=== PATIENT | male | born 1945 | race Caucasian/White ===

== ENCOUNTER 2024-07-15 17:45 | Inpatient (IN) ==
[2024-07-15] MEDS: NOREPINEPHRINE/D5W 4 MG/250 ML PLCT IV SCH (20:48)
--- OUTSIDE RECORDS SUMMARY | 2024-07-15 20:53 | External Medical Summary | Continuity Of Care Document ---
Author Name Unknown Address [address] [address] [facility] () Care Team Providers Care Component Lab Tech Name Role Phone DO Acuña Amy Primary Care Provider [phone] Allergies Allergy Reaction Start Date End Date Status NO KNOWN ALLERGIES Active Medications Medication Instructions Dosage Start Date End Date Status Order Date Drug Code Frequency Route of Admin Diagnosis Code Substitutions Allowed Tubersol 5 tub. unit/0.1 mL intradermal injection solution [Tuberculin PPD] 0.1 mL Intradermal 1 time For PPD Step 1 GIVE on Day 1 and read results Day 3 0.1 mL 07/06 Active 2024 84331 95836 0 1 time Intrad ermal False Tubersol 5 tub. unit/0.1 mL intradermal injection solution [Tuberculin PPD] 0.1mL Intradermal 1 time For PPD 2nd Step Give 2nd Step PPD Day 1 and Read results Day 3 (schedule 7 days after 1st READ) 0.1mL 07/15 Active 2024 45323 99644 0 1 time Intrad ermal False Doxycycline hyclate 100 mg tablet [generic] 100 mg By Mouth Twice daily For Pneumonitis 100 mg 07/08 Active 2024 66867 01845 1 Twice daily By Mouth False Tamiflu 75 mg capsule 75 mg By Mouth Twice daily For Influenza 75 mg 07/07 Active 2024 67075 58171 7 Twice daily By Mouth False Aspirin 81 mg tablet,dominick yed release [generic] 81 mg By Mouth O nce daily Do not crush, chew, or break For CAD 81 mg 2024 Active 2024 63817 11299 9 Once daily By Mouth False Losartan 50 mg tablet [generic] 50 mg By Mouth Once daily For HTN 50 mg 2024 Active 2024 02835 16553 9 Once daily By Mouth False Carbidopa 25 mg-levodopa 100 mg tablet [generic] 1 tab By Mouth 3 times a day For Parkinson's disease 1 tab 2024 Active 2024 97888 75321 1 3 times a day By Mouth False Celebrex 100 mg capsule 100 mg By Mouth Twice daily For Back pain 100 mg 2024 Active 2024 55170 48443 1 Twice daily By Mouth False Cyclobenzap rine 5 mg tablet [generic] 5 mg By Mouth 3 times a day As Needed For Back pain 5 mg 2024 Active 2024 57518 81159 1 3 times a day By Mouth False Donepezil 10 mg tablet [generic] 10 mg By Mouth Once daily For Dementia 10 mg 2024 Active 2024 48666 37950 3 Once daily By Mouth False Duloxetine 30 mg capsule,del ayed release [generic] 30 mg By Mouth Once daily For Depression 30 mg 2024 Active 2024 92928 29351 3 Once daily By Mouth False Jardiance 25 mg tablet 25 mg By Mouth Once daily For Diabetes 25 mg 2024 Active 2024 19932 22287 7 Once daily By Mouth False Entacapone 200 mg tablet [generic] 200 mg By Mouth 3 times a day For Parkinson's Disease 200 mg 2024 Active 2024 84685 16647 1 3 times a day By Mouth False Finasteride 5 mg tablet [generic] 5 mg By Mouth Once daily For BPH 5 mg 2024 Active 2024 23637 46542 1 Once daily By Mouth False Gemfibrozil 600 mg tablet [generic] 600 mg By Mouth Twice daily For Hyperlipidemi a 600 mg 2024 Active 2024 46750 01318 1 Twice daily By Mouth False Insulin aspart (U-100) 100 unit/mL (3 mL) subcutaneou s pen [generic] Subcutaneous 4 times a day <70 HOLD - Initiate Hypoglycemi Protocol 70-149 give 1.0 150-199 give 2.0 Units 200-249 give 4.0 Units 250-299 give 7.0 Units 300-349 give 10.0 Units 350-399 give 12.0 Units 400-499 give 14.0 Units >5 00 Call Provider for one-time order For Diabetes 2024 Active 2024 40729 75481 5 4 times a day Subcut aneous False Lactulose 10 gram/15 mL oral solution [generic] 15 ml By Mouth Twice daily For Constipation 15 ml 2024 Active 2024 70765 35615 8 Twice daily By Mouth False Memantine 10 mg tablet [generic] 10 mg By Mouth Twice daily For Dementia 10 mg 2024 Active 2024 41307 41966 0 Twice daily By Mouth False Metformin 1,000 mg tablet [generic] 1000 mg By Mouth Twice daily For Diabetes 1000 mg 2024 Active 2024 85642 20023 0 Twice daily By Mouth False Myrbetriq 25 mg tablet,exte nded release 25 mg By Mouth Once daily For OAB 25 mg 2024 Active 2024 78071 87764 7 Once daily By Mouth False Sertraline 25 mg tablet [generic] 25 mg By Mouth Once daily For Depression 25 mg 2024 Active 2024 60071 05522 5 Once daily By Mouth False [place]-3 fatty acids 1,000 mg capsule [generic] 1 capsule By Mouth Twice daily For Supplement 1 capsule 2024 Active 2024 85522 56304 7 Twice daily By Mouth False Pantoprazol e 40 mg tablet,dominick yed release [generic] 40 mg By Mouth Once daily For GERD 40 mg 2024 Active 2024 76867 11484 0 Once daily By Mouth False Pramipexole 0.25 mg tablet [generic] 0.25 mg By Mouth Twice daily For Parkinson's disease 0.25 mg 2024 Active 2024 72152 84163 0 Twice daily By Mouth False Pregabalin 75 mg capsule [generic] 75 mg By Mouth Twice daily For Neuropathy 75 mg 2024 Active 2024 70615 35758 9 Twice daily By Mouth False Rasagiline 1 mg tablet [generic] 1 mg By Mouth Once daily For Parkinson's disease 1 mg 2024 Active 2024 84193 73215 0 Once daily By Mouth False Sitagliptin 100 mg tablet [generic] 100 mg By Mouth Once daily For Diabetes 100 mg 2024 Active 2024 60620 67694 3 Once daily By Mouth False Tylenol 325 mg tablet 2 tabs By Mouth Every 4 hours as needed For Pain DO NOT EXCEED 3000 MG APAP/24 Hours 2 tabs 2024 Active 2024 66426 42556 0 Every 4 hours as needed By Mouth False Tylenol 325 mg tablet 2 tabs By Mouth Every 4 hours as needed For Fever >100 DO NOT EXCEED 3000 MG APAP/24 Hours 2 tabs 2024 Active 2024 94773 81610 0 Every 4 hours as needed By Mouth False Dulcolax (bisacodyl) 10 mg rectal suppository One Suppository per rectum PRN if Milk of Magnisia ineffective. Give on day 5 of no BM 1 sup 2024 Active 2024 29437 85086 1 Daily as needed Rectal False Fleet Enema 19 gram-7 gram/118 mL Administer per rectum PRN one time if dulcolax suppository not effective. Give on day 6 of no BM 1 2024 Active 2024 23793 52557 6 Daily as needed Rectal False Dextrose 50 % in water (D50W) intravenous solution [generic] Dextrose 50% nilda 20-50 ml (slow push) Intravenous if Glucagon not effective after 15 minutes. CALL 911 for ED Evaluation. 50% nilda 2024 Active 2024 39006 16471 9 Intrav enous False Glucagon (HCl) Emergency Kit 1 mg solution for injection Administer Glucagon 1 mg Intramuscular if 15 minutes after GLucose Gel is administered Glucose remains less than 70 1 mg 2024 Active 2024 32036 50615 2 Intram uscula r False Glucose Gel 40 % oral gel [Dextrose] PRN If resident is unable to swallow (with or without symptoms) and Glucose results less than 70 give GLucose 40% Gel 1 tube orally - Recheck Glucose 15 minutes after administratio n. 1 tube 2024 Active 2024 77473 78841 8 By Mouth False Milk of Magnesia 400 mg/5 mL oral suspension [Magnesium hydroxide] PRN 30ml By Mouth Daily as needed for constipation one time daily if no BM, on day 4 of no BM (PRN refer to instructions) For Constipation 30 mL 2024 Active 2024 22505 33402 6 Daily as needed By Mouth False Januvia 100 mg tablet TAKE ONE (1) TABLET BY MOUTH ONCE DAILY 2024 Active 2024 53884 77243 1 VITAL SIGNS Date Time Diastolic blood pressure Systolic blood pressure Body height Body weight Temperature SpO2 Blood Sugar Pulse Respirations 91035 429 66526 4 59.00 mm[Hg] - Sitting 106.00 mm[Hg] - Sitting 98.40 Tympanic 68.00/ min 18.00/min 78217 429 68807 0 155.60 NI 59927 429 31727 0 66 NI 19673 429 20911 4 59.00 mm[Hg] - Sitting 106.00 mm[Hg] - Sitting 98.40 Tympanic 94.00 % 68.00/ min 18.00/min 63118 429 33030 8 59.00 mm[Hg] - Sitting 106.00 mm[Hg] - Sitting 98.40 Tympanic 68.00/ min 18.00/min 33311 429 35462 9 267.00 mg/dL 80388 429 95159 4 267.00 mg/dL 46254 430 41380 8 196.00 mg/dL 76227 430 95935 0 196.00 mg/dL
--- OUTSIDE RECORDS SUMMARY | 2024-07-15 20:53 | External Medical Summary | Continuity Of Care Document ---
Author Name Unknown Address [address] [address] Organization [facility] () Care Team Providers Care Fitness Professional Name Role Phone DO Acuña Amy Primary Care Provider [phone] Allergies Allergy Reaction Start Date End Date [...] Day 3 0.1 mL 07/06 Active 2024 12425 94897 0 1 time Intrad ermal False Tubersol 5 tub. unit/0.1 mL intradermal injection solution [Tuberculin PPD] 0.1mL Intradermal 1 time For PPD 2nd Step Give 2nd Step PPD Day 1 and Read results Day 3 (schedule 7 days after 1st READ) 0.1mL 07/15 Active 2024 47969 07944 0 1 time Intrad ermal False Doxycycline hyclate 100 mg tablet [generic] 100 mg By Mouth Twice daily For Pneumonitis 100 mg 07/08 Active 2024 65233 01070 1 Twice daily By Mouth False Tamiflu 75 mg capsule 75 mg By Mouth Twice daily For Influenza 75 mg 07/07 Active 2024 35223 40714 7 Twice daily By Mouth False Aspirin 81 mg tablet,dominick yed release [generic] 81 mg By Mouth O nce daily Do not crush, chew, or break For CAD 81 mg 2024 Active 2024 22070 16788 9 Once daily By Mouth False Losartan 50 mg tablet [generic] 50 mg By Mouth Once daily For HTN 50 mg 2024 Active 2024 79046 63214 9 Once daily By Mouth False Carbidopa 25 mg-levodopa 100 mg tablet [generic] 1 tab By Mouth 3 times a day For Parkinson's disease 1 tab 2024 Active 2024 36805 45736 1 3 times a day By Mouth False Celebrex 100 mg capsule 100 mg By Mouth Twice daily For Back pain 100 mg 2024 Active 2024 40131 48022 1 Twice daily By Mouth False Cyclobenzap rine 5 mg tablet [generic] 5 mg By Mouth 3 times a day As Needed For Back pain 5 mg 2024 Active 2024 36378 44763 1 3 times a day By Mouth False Donepezil 10 mg tablet [generic] 10 mg By Mouth Once daily For Dementia 10 mg 2024 Active 2024 83468 14995 3 Once daily By Mouth False Duloxetine 30 mg capsule,del ayed release [generic] 30 mg By Mouth Once daily For Depression 30 mg 2024 Active 2024 01030 06108 3 Once daily By Mouth False Jardiance 25 mg tablet 25 mg By Mouth Once daily For Diabetes 25 mg 2024 Active 2024 70512 36816 7 Once daily By Mouth False Entacapone 200 mg tablet [generic] 200 mg By Mouth 3 times a day For Parkinson's Disease 200 mg 2024 Active 2024 48859 44059 1 3 times a day By Mouth False Finasteride 5 mg tablet [generic] 5 mg By Mouth Once daily For BPH 5 mg 2024 Active 2024 16629 75225 1 Once daily By Mouth False Gemfibrozil 600 mg tablet [generic] 600 mg By Mouth Twice daily For Hyperlipidemi a 600 mg 2024 Active 2024 99727 42984 1 Twice daily By Mouth False Insulin [...] one-time order For Diabetes 2024 Active 2024 74219 33556 5 4 times a day Subcut aneous False Lactulose 10 gram/15 mL oral solution [generic] 15 ml By Mouth Twice daily For Constipation 15 ml 2024 Active 2024 70285 19233 8 Twice daily By Mouth False Memantine 10 mg tablet [generic] 10 mg By Mouth Twice daily For Dementia 10 mg 2024 Active 2024 17626 81899 0 Twice daily By Mouth False Metformin 1,000 mg tablet [generic] 1000 mg By Mouth Twice daily For Diabetes 1000 mg 2024 Active 2024 74759 40041 0 Twice daily By Mouth False Myrbetriq 25 mg tablet,exte nded release 25 mg By Mouth Once daily For OAB 25 mg 2024 Active 2024 31268 73614 7 Once daily By Mouth False Sertraline 25 mg tablet [generic] 25 mg By Mouth Once daily For Depression 25 mg 2024 Active 2024 17474 26482 5 Once daily By Mouth False [place]-3 fatty acids 1,000 mg capsule [generic] 1 capsule By Mouth Twice daily For Supplement 1 capsule 2024 Active 2024 60700 76172 7 Twice daily By Mouth False Pantoprazol e 40 mg tablet,dominick yed release [generic] 40 mg By Mouth Once daily For GERD 40 mg 2024 Active 2024 73503 38353 0 Once daily By Mouth False Pramipexole 0.25 mg tablet [generic] 0.25 mg By Mouth Twice daily For Parkinson's disease 0.25 mg 2024 Active 2024 72000 61965 0 Twice daily By Mouth False Pregabalin 75 mg capsule [generic] 75 mg By Mouth Twice daily For Neuropathy 75 mg 2024 Active 2024 96300 52601 9 Twice daily By Mouth False Rasagiline 1 mg tablet [generic] 1 mg By Mouth Once daily For Parkinson's disease 1 mg 2024 Active 2024 99968 51456 0 Once daily By Mouth False Sitagliptin 100 mg tablet [generic] 100 mg By Mouth Once daily For Diabetes 100 mg 2024 Active 2024 83642 23504 3 Once daily By Mouth False Tylenol 325 mg tablet 2 tabs By Mouth Every 4 hours as needed For Pain DO NOT EXCEED 3000 MG APAP/24 Hours 2 tabs 2024 Active 2024 30854 04813 0 Every 4 hours as needed By Mouth False Tylenol 325 mg tablet 2 tabs By Mouth Every 4 hours as needed For Fever >100 DO NOT EXCEED 3000 MG APAP/24 Hours 2 tabs 2024 Active 2024 27121 42133 0 Every 4 hours as needed By Mouth False Dulcolax (bisacodyl) 10 mg rectal suppository One Suppository per rectum PRN if Milk of Magnisia ineffective. Give on day 5 of no BM 1 sup 2024 Active 2024 52903 73388 1 Daily as needed Rectal False Fleet Enema 19 gram-7 gram/118 mL Administer per rectum PRN one time if dulcolax suppository not effective. Give on day 6 of no BM 1 2024 Active 2024 35734 36648 6 Daily as needed Rectal False Dextrose 50 % in water (D50W) intravenous solution [generic] Dextrose 50% nilda 20-50 ml (slow push) Intravenous if Glucagon not effective after 15 minutes. CALL 911 for ED Evaluation. 50% nilda 2024 Active 2024 86105 01229 9 Intrav enous False Glucagon (HCl) Emergency Kit 1 mg solution for injection Administer Glucagon 1 mg Intramuscular if 15 minutes after GLucose Gel is administered Glucose remains less than 70 1 mg 2024 Active 2024 05077 45753 2 Intram uscula r False Glucose Gel 40 % oral gel [Dextrose] PRN If resident is unable to swallow (with or without symptoms) and Glucose results less than 70 give GLucose 40% Gel 1 tube orally - Recheck Glucose 15 minutes after administratio n. 1 tube 2024 Active 2024 27134 23725 8 By Mouth False Milk of Magnesia 400 mg/5 mL oral suspension [Magnesium hydroxide] PRN 30ml By Mouth Daily as needed for constipation one time daily if no BM, on day 4 of no BM (PRN refer to instructions) For Constipation 30 mL 2024 Active 2024 74442 56862 6 Daily as needed By Mouth False VITAL SIGNS Date Time Diastolic blood pressure Systolic blood pressure Body height Body weight Temperature SpO2 Blood Sugar Pulse Respirations 62953 429 01244 0 155.60 [place] 61293 429 23680 0 66 NI 60685 429 97278 4 59.00 mm[Hg] - Sitting 106.00 mm[Hg] - Sitting 98.40 Tympanic 94.00 % 68.00/ min 18.00/min 84054 429 40001 8 59.00 mm[Hg] - Sitting 106.00 mm[Hg] - Sitting 98.40 Tympanic 68.00/ min 18.00/min 80387 429 43809 9 267.00 mg/dL
--- OUTSIDE RECORDS SUMMARY | 2024-07-15 20:53 | External Medical Summary | Continuity Of Care Document ---
Author Name Unknown Address [address] [address] Organization [facility] () Care Team Providers Care Supervisor [employer] Name Role Phone DO Acuña Amy Primary Care Provider [phone] Allergies Allergy Reaction Start Date End Date [...] Day 3 0.1 mL 07/06 Active 2024 25504 84325 0 1 time Intrad ermal False Tubersol 5 tub. unit/0.1 mL intradermal injection solution [Tuberculin PPD] 0.1mL Intradermal 1 time For PPD 2nd Step Give 2nd Step PPD Day 1 and Read results Day 3 (schedule 7 days after 1st READ) 0.1mL 07/15 Active 2024 04538 03037 0 1 time Intrad ermal False Doxycycline hyclate 100 mg tablet [generic] 100 mg By Mouth Twice daily For Pneumonitis 100 mg 07/08 Active 2024 00766 10971 1 Twice daily By Mouth False Tamiflu 75 mg capsule 75 mg By Mouth Twice daily For Influenza 75 mg 07/07 Active 2024 82240 86648 7 Twice daily By Mouth False Aspirin 81 mg tablet,dominick yed release [generic] 81 mg By Mouth O nce daily Do not crush, chew, or break For CAD 81 mg 2024 Active 2024 09488 35503 9 Once daily By Mouth False Losartan 50 mg tablet [generic] 50 mg By Mouth Once daily For HTN 50 mg 2024 Active 2024 20896 22129 9 Once daily By Mouth False Carbidopa 25 mg-levodopa 100 mg tablet [generic] 1 tab By Mouth 3 times a day For Parkinson's disease 1 tab 2024 Active 2024 88279 42438 1 3 times a day By Mouth False Celebrex 100 mg capsule 100 mg By Mouth Twice daily For Back pain 100 mg 2024 Active 2024 34290 18568 1 Twice daily By Mouth False Cyclobenzap rine 5 mg tablet [generic] 5 mg By Mouth 3 times a day As Needed For Back pain 5 mg 2024 Active 2024 64460 53938 1 3 times a day By Mouth False Donepezil 10 mg tablet [generic] 10 mg By Mouth Once daily For Dementia 10 mg 2024 Active 2024 03121 22306 3 Once daily By Mouth False Duloxetine 30 mg capsule,del ayed release [generic] 30 mg By Mouth Once daily For Depression 30 mg 2024 Active 2024 38882 77660 3 Once daily By Mouth False Jardiance 25 mg tablet 25 mg By Mouth Once daily For Diabetes 25 mg 2024 Active 2024 44669 68608 7 Once daily By Mouth False Entacapone 200 mg tablet [generic] 200 mg By Mouth 3 times a day For Parkinson's Disease 200 mg 2024 Active 2024 67733 90282 1 3 times a day By Mouth False Finasteride 5 mg tablet [generic] 5 mg By Mouth Once daily For BPH 5 mg 2024 Active 2024 53763 81189 1 Once daily By Mouth False Gemfibrozil 600 mg tablet [generic] 600 mg By Mouth Twice daily For Hyperlipidemi a 600 mg 2024 Active 2024 48846 17051 1 Twice daily By Mouth False Insulin [...] one-time order For Diabetes 2024 Active 2024 70327 79365 5 4 times a day Subcut aneous False Lactulose 10 gram/15 mL oral solution [generic] 15 ml By Mouth Twice daily For Constipation 15 ml 2024 Active 2024 02242 29632 8 Twice daily By Mouth False Memantine 10 mg tablet [generic] 10 mg By Mouth Twice daily For Dementia 10 mg 2024 Active 2024 75528 62812 0 Twice daily By Mouth False Metformin 1,000 mg tablet [generic] 1000 mg By Mouth Twice daily For Diabetes 1000 mg 2024 Active 2024 29174 42131 0 Twice daily By Mouth False Myrbetriq 25 mg tablet,exte nded release 25 mg By Mouth Once daily For OAB 25 mg 2024 Active 2024 86479 89878 7 Once daily By Mouth False Sertraline 25 mg tablet [generic] 25 mg By Mouth Once daily For Depression 25 mg 2024 Active 2024 50010 48933 5 Once daily By Mouth False [place]-3 fatty acids 1,000 mg capsule [generic] 1 capsule By Mouth Twice daily For Supplement 1 capsule 2024 Active 2024 66612 27491 7 Twice daily By Mouth False Pantoprazol e 40 mg tablet,dominick yed release [generic] 40 mg By Mouth Once daily For GERD 40 mg 2024 Active 2024 30734 13138 0 Once daily By Mouth False Pramipexole 0.25 mg tablet [generic] 0.25 mg By Mouth Twice daily For Parkinson's disease 0.25 mg 2024 Active 2024 09512 11568 0 Twice daily By Mouth False Pregabalin 75 mg capsule [generic] 75 mg By Mouth Twice daily For Neuropathy 75 mg 2024 Active 2024 34427 58710 9 Twice daily By Mouth False Rasagiline 1 mg tablet [generic] 1 mg By Mouth Once daily For Parkinson's disease 1 mg 2024 Active 2024 15555 17230 0 Once daily By Mouth False Sitagliptin 100 mg tablet [generic] 100 mg By Mouth Once daily For Diabetes 100 mg 2024 Active 2024 78951 07261 3 Once daily By Mouth False Tylenol 325 mg tablet 2 tabs By Mouth Every 4 hours as needed For Pain DO NOT EXCEED 3000 MG APAP/24 Hours 2 tabs 2024 Active 2024 68054 14641 0 Every 4 hours as needed By Mouth False Tylenol 325 mg tablet 2 tabs By Mouth Every 4 hours as needed For Fever >100 DO NOT EXCEED 3000 MG APAP/24 Hours 2 tabs 2024 Active 2024 81567 77754 0 Every 4 hours as needed By Mouth False Dulcolax (bisacodyl) 10 mg rectal suppository One Suppository per rectum PRN if Milk of Magnisia ineffective. Give on day 5 of no BM 1 sup 2024 Active 2024 45917 72010 1 Daily as needed Rectal False Fleet Enema 19 gram-7 gram/118 mL Administer per rectum PRN one time if dulcolax suppository not effective. Give on day 6 of no BM 1 2024 Active 2024 17493 69797 6 Daily as needed Rectal False Dextrose 50 % in water (D50W) intravenous solution [generic] Dextrose 50% nilda 20-50 ml (slow push) Intravenous if Glucagon not effective after 15 minutes. CALL 911 for ED Evaluation. 50% nilda 2024 Active 2024 89726 11962 9 Intrav enous False Glucagon (HCl) Emergency Kit 1 mg solution for injection Administer Glucagon 1 mg Intramuscular if 15 minutes after GLucose Gel is administered Glucose remains less than 70 1 mg 2024 Active 2024 51479 03235 2 Intram uscula r False Glucose Gel 40 % oral gel [Dextrose] PRN If resident is unable to swallow (with or without symptoms) and Glucose results less than 70 give GLucose 40% Gel 1 tube orally - Recheck Glucose 15 minutes after administratio n. 1 tube 2024 Active 2024 23019 89716 8 By Mouth False Milk of Magnesia 400 mg/5 mL oral suspension [Magnesium hydroxide] PRN 30ml By Mouth Daily as needed for constipation one time daily if no BM, on day 4 of no BM (PRN refer to instructions) For Constipation 30 mL 2024 Active 2024 25126 14834 6 Daily as needed By Mouth False Januvia 100 mg tablet TAKE ONE (1) TABLET BY MOUTH ONCE DAILY 2024 Active 2024 21573 60831 1 VITAL SIGNS Date Time Diastolic blood pressure Systolic blood pressure Body height Body weight Temperature SpO2 Blood Sugar Pulse Respirations 45067 429 25506 4 59.00 mm[Hg] - Sitting 106.00 mm[Hg] - Sitting 98.40 Tympanic 68.00/ min 18.00/min 48580 429 14730 0 155.60 NI 05457 429 95780 0 66 NI 55429 429 65658 4 59.00 mm[Hg] - Sitting 106.00 mm[Hg] - Sitting 98.40 Tympanic 94.00 % 68.00/ min 18.00/min 79608 429 33884 8 59.00 mm[Hg] - Sitting 106.00 mm[Hg] - Sitting 98.40 Tympanic 68.00/ min 18.00/min 24420 429 03833 9 267.00 mg/dL 50117 429 01013 4 267.00 mg/dL 01404 430 09111 8 196.00 mg/dL 16587 430 54077 0 196.00 mg/dL
--- OUTSIDE RECORDS SUMMARY | 2024-07-15 20:53 | External Medical Summary | Continuity Of Care Document ---
Author Name Unknown Address [address] [address] Organization [facility] () Care Team Providers Care Alarm Signal Operator Name Role Phone DO Acuña Amy Primary Care Provider [phone] Allergies Allergy Reaction Start Date End Date [...] Day 3 0.1 mL 07/06 Active 2024 07666 76778 0 1 time Intrad ermal False Tubersol 5 tub. unit/0.1 mL intradermal injection solution [Tuberculin PPD] 0.1mL Intradermal 1 time For PPD 2nd Step Give 2nd Step PPD Day 1 and Read results Day 3 (schedule 7 days after 1st READ) 0.1mL 07/15 Active 2024 31491 61628 0 1 time Intrad ermal False Doxycycline hyclate 100 mg tablet [generic] 100 mg By Mouth Twice daily For Pneumonitis 100 mg 07/08 Active 2024 57673 74835 1 Twice daily By Mouth False Tamiflu 75 mg capsule 75 mg By Mouth Twice daily For Influenza 75 mg 07/07 Active 2024 11445 51494 7 Twice daily By Mouth False Aspirin 81 mg tablet,dominick yed release [generic] 81 mg By Mouth O nce daily Do not crush, chew, or break For CAD 81 mg 2024 Active 2024 54677 03196 9 Once daily By Mouth False Losartan 50 mg tablet [generic] 50 mg By Mouth Once daily For HTN 50 mg 2024 Active 2024 77522 55312 9 Once daily By Mouth False Carbidopa 25 mg-levodopa 100 mg tablet [generic] 1 tab By Mouth 3 times a day For Parkinson's disease 1 tab 2024 Active 2024 20023 33721 1 3 times a day By Mouth False Celebrex 100 mg capsule 100 mg By Mouth Twice daily For Back pain 100 mg 2024 Active 2024 97137 16828 1 Twice daily By Mouth False Cyclobenzap rine 5 mg tablet [generic] 5 mg By Mouth 3 times a day As Needed For Back pain 5 mg 2024 Active 2024 17656 47789 1 3 times a day By Mouth False Donepezil 10 mg tablet [generic] 10 mg By Mouth Once daily For Dementia 10 mg 2024 Active 2024 88603 98339 3 Once daily By Mouth False Duloxetine 30 mg capsule,del ayed release [generic] 30 mg By Mouth Once daily For Depression 30 mg 2024 Active 2024 13041 77319 3 Once daily By Mouth False Jardiance 25 mg tablet 25 mg By Mouth Once daily For Diabetes 25 mg 2024 Active 2024 83101 15002 7 Once daily By Mouth False Entacapone 200 mg tablet [generic] 200 mg By Mouth 3 times a day For Parkinson's Disease 200 mg 2024 Active 2024 77494 03116 1 3 times a day By Mouth False Finasteride 5 mg tablet [generic] 5 mg By Mouth Once daily For BPH 5 mg 2024 Active 2024 48118 71975 1 Once daily By Mouth False Gemfibrozil 600 mg tablet [generic] 600 mg By Mouth Twice daily For Hyperlipidemi a 600 mg 2024 Active 2024 39608 44410 1 Twice daily By Mouth False Insulin [...] one-time order For Diabetes 2024 Active 2024 40950 73462 5 4 times a day Subcut aneous False Lactulose 10 gram/15 mL oral solution [generic] 15 ml By Mouth Twice daily For Constipation 15 ml 2024 Active 2024 89866 74394 8 Twice daily By Mouth False Memantine 10 mg tablet [generic] 10 mg By Mouth Twice daily For Dementia 10 mg 2024 Active 2024 62376 52336 0 Twice daily By Mouth False Metformin 1,000 mg tablet [generic] 1000 mg By Mouth Twice daily For Diabetes 1000 mg 2024 Active 2024 96810 78625 0 Twice daily By Mouth False Myrbetriq 25 mg tablet,exte nded release 25 mg By Mouth Once daily For OAB 25 mg 2024 Active 2024 88312 75794 7 Once daily By Mouth False Sertraline 25 mg tablet [generic] 25 mg By Mouth Once daily For Depression 25 mg 2024 Active 2024 51895 59901 5 Once daily By Mouth False [place]-3 fatty acids 1,000 mg capsule [generic] 1 capsule By Mouth Twice daily For Supplement 1 capsule 2024 Active 2024 69050 96843 7 Twice daily By Mouth False Pantoprazol e 40 mg tablet,dominick yed release [generic] 40 mg By Mouth Once daily For GERD 40 mg 2024 Active 2024 94254 32556 0 Once daily By Mouth False Pramipexole 0.25 mg tablet [generic] 0.25 mg By Mouth Twice daily For Parkinson's disease 0.25 mg 2024 Active 2024 82076 95744 0 Twice daily By Mouth False Pregabalin 75 mg capsule [generic] 75 mg By Mouth Twice daily For Neuropathy 75 mg 2024 Active 2024 91007 20683 9 Twice daily By Mouth False Rasagiline 1 mg tablet [generic] 1 mg By Mouth Once daily For Parkinson's disease 1 mg 2024 Active 2024 93137 71936 0 Once daily By Mouth False Sitagliptin 100 mg tablet [generic] 100 mg By Mouth Once daily For Diabetes 100 mg 2024 Active 2024 23000 39252 3 Once daily By Mouth False Tylenol 325 mg tablet 2 tabs By Mouth Every 4 hours as needed For Pain DO NOT EXCEED 3000 MG APAP/24 Hours 2 tabs 2024 Active 2024 76270 11648 0 Every 4 hours as needed By Mouth False Tylenol 325 mg tablet 2 tabs By Mouth Every 4 hours as needed For Fever >100 DO NOT EXCEED 3000 MG APAP/24 Hours 2 tabs 2024 Active 2024 28844 97409 0 Every 4 hours as needed By Mouth False Dulcolax (bisacodyl) 10 mg rectal suppository One Suppository per rectum PRN if Milk of Magnisia ineffective. Give on day 5 of no BM 1 sup 2024 Active 2024 57947 26468 1 Daily as needed Rectal False Fleet Enema 19 gram-7 gram/118 mL Administer per rectum PRN one time if dulcolax suppository not effective. Give on day 6 of no BM 1 2024 Active 2024 34022 35195 6 Daily as needed Rectal False Dextrose 50 % in water (D50W) intravenous solution [generic] Dextrose 50% nilda 20-50 ml (slow push) Intravenous if Glucagon not effective after 15 minutes. CALL 911 for ED Evaluation. 50% nilda 2024 Active 2024 64453 79371 9 Intrav enous False Glucagon (HCl) Emergency Kit 1 mg solution for injection Administer Glucagon 1 mg Intramuscular if 15 minutes after GLucose Gel is administered Glucose remains less than 70 1 mg 2024 Active 2024 14994 64444 2 Intram uscula r False Glucose Gel 40 % oral gel [Dextrose] PRN If resident is unable to swallow (with or without symptoms) and Glucose results less than 70 give GLucose 40% Gel 1 tube orally - Recheck Glucose 15 minutes after administratio n. 1 tube 2024 Active 2024 49291 08112 8 By Mouth False Milk of Magnesia 400 mg/5 mL oral suspension [Magnesium hydroxide] PRN 30ml By Mouth Daily as needed for constipation one time daily if no BM, on day 4 of no BM (PRN refer to instructions) For Constipation 30 mL 2024 Active 2024 94822 48939 6 Daily as needed By Mouth False Januvia 100 mg tablet TAKE ONE (1) TABLET BY MOUTH ONCE DAILY 2024 Active 2024 09063 61567 1 VITAL SIGNS Date Time Diastolic blood pressure Systolic blood pressure Body height Body weight Temperature SpO2 Blood Sugar Pulse Respirations 28522 429 47942 4 59.00 mm[Hg] - Sitting 106.00 mm[Hg] - Sitting 98.40 Tympanic 68.00/ min 18.00/min 37087 429 88653 0 155.60 NI [id number] 429 68162 0 66 NI 57402 429 24175 4 59.00 mm[Hg] - Sitting 106.00 mm[Hg] - Sitting 98.40 Tympanic 94.00 % 68.00/ min 18.00/min 73934 429 69788 8 59.00 mm[Hg] - Sitting 106.00 mm[Hg] - Sitting 98.40 Tympanic 68.00/ min 18.00/min 94797 429 76199 9 267.00 mg/dL 74736 429 33988 4 267.00 mg/dL 56260 430 32602 8 196.00 mg/dL 23409 430 17947 0 196.00 mg/dL 04364 430 25810 6 66.00 mm[Hg] - Lying Down 100.00 mm[Hg] - Lying Down 430 27655 0 69.00 mm[Hg] - Sitting 118.00 mm[Hg] - Sitting 430 53981 2 73.00 mm[Hg] - T-Standing 123.00 mm[Hg] - T-Standin g
--- OUTSIDE RECORDS SUMMARY | 2024-07-15 20:54 | External Medical Summary | Continuity Of Care Document ---
Author Name Unknown Address [address] [address] Organization [facility] () Care Team Providers Care Livestock Handler Name Role Phone DO Acuña Amy Primary Care Provider [phone] Allergies Allergy Reaction Start Date End Date [...] Day 3 0.1 mL 07/06 Active 2024 71200 02436 0 1 time Intrad ermal False Tubersol 5 tub. unit/0.1 mL intradermal injection solution [Tuberculin PPD] 0.1mL Intradermal 1 time For PPD 2nd Step Give 2nd Step PPD Day 1 and Read results Day 3 (schedule 7 days after 1st READ) 0.1mL 07/15 Active 2024 91264 84604 0 1 time Intrad ermal False Doxycycline hyclate 100 mg tablet [generic] 100 mg By Mouth Twice daily For Pneumonitis 100 mg 07/08 Active 2024 63910 96866 1 Twice daily By Mouth False Tamiflu 75 mg capsule 75 mg By Mouth Twice daily For Influenza 75 mg 07/07 Active 2024 41522 67355 7 Twice daily By Mouth False Aspirin 81 mg tablet,dominick yed release [generic] 81 mg By Mouth O nce daily Do not crush, chew, or break For CAD 81 mg 2024 Active 2024 67451 67360 9 Once daily By Mouth False Losartan 50 mg tablet [generic] 50 mg By Mouth Once daily For HTN 50 mg 2024 Active 2024 90513 24581 9 Once daily By Mouth False Carbidopa 25 mg-levodopa 100 mg tablet [generic] 1 tab By Mouth 3 times a day For Parkinson's disease 1 tab 2024 Active 2024 10879 47612 1 3 times a day By Mouth False Celebrex 100 mg capsule 100 mg By Mouth Twice daily For Back pain 100 mg 2024 Active 2024 97677 93203 1 Twice daily By Mouth False Cyclobenzap rine 5 mg tablet [generic] 5 mg By Mouth 3 times a day As Needed For Back pain 5 mg 2024 Active 2024 01656 21517 1 3 times a day By Mouth False Donepezil 10 mg tablet [generic] 10 mg By Mouth Once daily For Dementia 10 mg 2024 Active 2024 78443 71650 3 Once daily By Mouth False Duloxetine 30 mg capsule,del ayed release [generic] 30 mg By Mouth Once daily For Depression 30 mg 2024 Active 2024 75497 63280 3 Once daily By Mouth False Jardiance 25 mg tablet 25 mg By Mouth Once daily For Diabetes 25 mg 2024 Active 2024 72650 00080 7 Once daily By Mouth False Entacapone 200 mg tablet [generic] 200 mg By Mouth 3 times a day For Parkinson's Disease 200 mg 2024 Active 2024 40417 52386 1 3 times a day By Mouth False Finasteride 5 mg tablet [generic] 5 mg By Mouth Once daily For BPH 5 mg 2024 Active 2024 40900 66414 1 Once daily By Mouth False Gemfibrozil 600 mg tablet [generic] 600 mg By Mouth Twice daily For Hyperlipidemi a 600 mg 2024 Active 2024 20588 10497 1 Twice daily By Mouth False Insulin [...] one-time order For Diabetes 2024 Active 2024 72922 83416 5 4 times a day Subcut aneous False Lactulose 10 gram/15 mL oral solution [generic] 15 ml By Mouth Twice daily For Constipation 15 ml 2024 Active 2024 97690 51591 8 Twice daily By Mouth False Memantine 10 mg tablet [generic] 10 mg By Mouth Twice daily For Dementia 10 mg 2024 Active 2024 70402 93593 0 Twice daily By Mouth False Metformin 1,000 mg tablet [generic] 1000 mg By Mouth Twice daily For Diabetes 1000 mg 2024 Active 2024 14721 79531 0 Twice daily By Mouth False Myrbetriq 25 mg tablet,exte nded release 25 mg By Mouth Once daily For OAB 25 mg 2024 Active 2024 03858 02325 7 Once daily By Mouth False Sertraline 25 mg tablet [generic] 25 mg By Mouth Once daily For Depression 25 mg 2024 Active 2024 62958 15260 5 Once daily By Mouth False [place]-3 fatty acids 1,000 mg capsule [generic] 1 capsule By Mouth Twice daily For Supplement 1 capsule 2024 Active 2024 43093 54030 7 Twice daily By Mouth False Pantoprazol e 40 mg tablet,dominick yed release [generic] 40 mg By Mouth Once daily For GERD 40 mg 2024 Active 2024 27182 52819 0 Once daily By Mouth False Pramipexole 0.25 mg tablet [generic] 0.25 mg By Mouth Twice daily For Parkinson's disease 0.25 mg 2024 Active 2024 92445 09573 0 Twice daily By Mouth False Pregabalin 75 mg capsule [generic] 75 mg By Mouth Twice daily For Neuropathy 75 mg 2024 Active 2024 79654 42576 9 Twice daily By Mouth False Rasagiline 1 mg tablet [generic] 1 mg By Mouth Once daily For Parkinson's disease 1 mg 2024 Active 2024 84496 79665 0 Once daily By Mouth False Sitagliptin 100 mg tablet [generic] 100 mg By Mouth Once daily For Diabetes 100 mg 2024 Active 2024 83678 23508 3 Once daily By Mouth False Tylenol 325 mg tablet 2 tabs By Mouth Every 4 hours as needed For Pain DO NOT EXCEED 3000 MG APAP/24 Hours 2 tabs 2024 Active 2024 08096 82903 0 Every 4 hours as needed By Mouth False Tylenol 325 mg tablet 2 tabs By Mouth Every 4 hours as needed For Fever >100 DO NOT EXCEED 3000 MG APAP/24 Hours 2 tabs 2024 Active 2024 65153 18677 0 Every 4 hours as needed By Mouth False Dulcolax (bisacodyl) 10 mg rectal suppository One Suppository per rectum PRN if Milk of Magnisia ineffective. Give on day 5 of no BM 1 sup 2024 Active 2024 19248 23236 1 Daily as needed Rectal False Fleet Enema 19 gram-7 gram/118 mL Administer per rectum PRN one time if dulcolax suppository not effective. Give on day 6 of no BM 1 2024 Active 2024 50361 58653 6 Daily as needed Rectal False Dextrose 50 % in water (D50W) intravenous solution [generic] Dextrose 50% nilda 20-50 ml (slow push) Intravenous if Glucagon not effective after 15 minutes. CALL 911 for ED Evaluation. 50% nilda 2024 Active 2024 48647 33013 9 Intrav enous False Glucagon (HCl) Emergency Kit 1 mg solution for injection Administer Glucagon 1 mg Intramuscular if 15 minutes after GLucose Gel is administered Glucose remains less than 70 1 mg 2024 Active 2024 90321 97448 2 Intram uscula r False Glucose Gel 40 % oral gel [Dextrose] PRN If resident is unable to swallow (with or without symptoms) and Glucose results less than 70 give GLucose 40% Gel 1 tube orally - Recheck Glucose 15 minutes after administratio n. 1 tube 2024 Active 2024 09277 20979 8 By Mouth False Milk of Magnesia 400 mg/5 mL oral suspension [Magnesium hydroxide] PRN 30ml By Mouth Daily as needed for constipation one time daily if no BM, on day 4 of no BM (PRN refer to instructions) For Constipation 30 mL 2024 Active 2024 89996 13782 6 Daily as needed By Mouth False VITAL SIGNS Date Time Diastolic blood pressure Systolic blood pressure Body height Body weight Temperature SpO2 Blood Sugar Pulse Respirations 88456 429 95178 0 155.60 NI 32415 429 51252 0 66 NI 95883 429 37541 4 59.00 mm[Hg] - Sitting 106.00 mm[Hg] - Sitting 98.40 Tympanic 94.00 % 68.00/ min 18.00/min
--- OUTSIDE RECORDS SUMMARY | 2024-07-15 20:54 | External Medical Summary | Continuity Of Care Document ---
Author Name Unknown Address [address] [address] Organization [facility] () Care Team Providers Care Dobie Worker Name Role Phone DO Acuña Amy Primary Care Provider [phone] Allergies Allergy Reaction Start Date End Date [...] Day 3 0.1 mL 07/06 Active 2024 06539 06446 0 1 time Intrad ermal False Tubersol 5 tub. unit/0.1 mL intradermal injection solution [Tuberculin PPD] 0.1mL Intradermal 1 time For PPD 2nd Step Give 2nd Step PPD Day 1 and Read results Day 3 (schedule 7 days after 1st READ) 0.1mL 07/15 Active 2024 02439 53574 0 1 time Intrad ermal False Doxycycline hyclate 100 mg tablet [generic] 100 mg By Mouth Twice daily For Pneumonitis 100 mg 07/08 Active 2024 17071 28760 1 Twice daily By Mouth False Tamiflu 75 mg capsule 75 mg By Mouth Twice daily For Influenza 75 mg 07/07 Active 2024 83688 65722 7 Twice daily By Mouth False Aspirin 81 mg tablet,dominick yed release [generic] 81 mg By Mouth O nce daily Do not crush, chew, or break For CAD 81 mg 2024 Active 2024 09609 45084 9 Once daily By Mouth False Losartan 50 mg tablet [generic] 50 mg By Mouth Once daily For HTN 50 mg 2024 Active 2024 59881 26844 9 Once daily By Mouth False Carbidopa 25 mg-levodopa 100 mg tablet [generic] 1 tab By Mouth 3 times a day For Parkinson's disease 1 tab 2024 Active 2024 72567 92233 1 3 times a day By Mouth False Celebrex 100 mg capsule 100 mg By Mouth Twice daily For Back pain 100 mg 2024 Active 2024 76795 96640 1 Twice daily By Mouth False Cyclobenzap rine 5 mg tablet [generic] 5 mg By Mouth 3 times a day As Needed For Back pain 5 mg 2024 Active 2024 06546 82535 1 3 times a day By Mouth False Donepezil 10 mg tablet [generic] 10 mg By Mouth Once daily For Dementia 10 mg 2024 Active 2024 74147 66315 3 Once daily By Mouth False Duloxetine 30 mg capsule,del ayed release [generic] 30 mg By Mouth Once daily For Depression 30 mg 2024 Active 2024 96762 35551 3 Once daily By Mouth False Jardiance 25 mg tablet 25 mg By Mouth Once daily For Diabetes 25 mg 2024 Active 2024 26636 62197 7 Once daily By Mouth False Entacapone 200 mg tablet [generic] 200 mg By Mouth 3 times a day For Parkinson's Disease 200 mg 2024 Active 2024 28664 32692 1 3 times a day By Mouth False Finasteride 5 mg tablet [generic] 5 mg By Mouth Once daily For BPH 5 mg 2024 Active 2024 12439 22912 1 Once daily By Mouth False Gemfibrozil 600 mg tablet [generic] 600 mg By Mouth Twice daily For Hyperlipidemi a 600 mg 2024 Active 2024 29859 68379 1 Twice daily By Mouth False Insulin [...] one-time order For Diabetes 2024 Active 2024 51070 40249 5 4 times a day Subcut aneous False Lactulose 10 gram/15 mL oral solution [generic] 15 ml By Mouth Twice daily For Constipation 15 ml 2024 Active 2024 86771 96924 8 Twice daily By Mouth False Memantine 10 mg tablet [generic] 10 mg By Mouth Twice daily For Dementia 10 mg 2024 Active 2024 36691 80836 0 Twice daily By Mouth False Metformin 1,000 mg tablet [generic] 1000 mg By Mouth Twice daily For Diabetes 1000 mg 2024 Active 2024 35512 14023 0 Twice daily By Mouth False Myrbetriq 25 mg tablet,exte nded release 25 mg By Mouth Once daily For OAB 25 mg 2024 Active 2024 47821 91718 7 Once daily By Mouth False Sertraline 25 mg tablet [generic] 25 mg By Mouth Once daily For Depression 25 mg 2024 Active 2024 28754 81330 5 Once daily By Mouth False [place]-3 fatty acids 1,000 mg capsule [generic] 1 capsule By Mouth Twice daily For Supplement 1 capsule 2024 Active 2024 94838 82533 7 Twice daily By Mouth False Pantoprazol e 40 mg tablet,dominick yed release [generic] 40 mg By Mouth Once daily For GERD 40 mg 2024 Active 2024 27385 52527 0 Once daily By Mouth False Pramipexole 0.25 mg tablet [generic] 0.25 mg By Mouth Twice daily For Parkinson's disease 0.25 mg 2024 Active 2024 61001 62685 0 Twice daily By Mouth False Pregabalin 75 mg capsule [generic] 75 mg By Mouth Twice daily For Neuropathy 75 mg 2024 Active 2024 00696 25589 9 Twice daily By Mouth False Rasagiline 1 mg tablet [generic] 1 mg By Mouth Once daily For Parkinson's disease 1 mg 2024 Active 2024 88747 81515 0 Once daily By Mouth False Sitagliptin 100 mg tablet [generic] 100 mg By Mouth Once daily For Diabetes 100 mg 2024 Active 2024 11691 63659 3 Once daily By Mouth False Tylenol 325 mg tablet 2 tabs By Mouth Every 4 hours as needed For Pain DO NOT EXCEED 3000 MG APAP/24 Hours 2 tabs 2024 Active 2024 96728 15776 0 Every 4 hours as needed By Mouth False Tylenol 325 mg tablet 2 tabs By Mouth Every 4 hours as needed For Fever >100 DO NOT EXCEED 3000 MG APAP/24 Hours 2 tabs 2024 Active 2024 61402 99958 0 Every 4 hours as needed By Mouth False Dulcolax (bisacodyl) 10 mg rectal suppository One Suppository per rectum PRN if Milk of Magnisia ineffective. Give on day 5 of no BM 1 sup 2024 Active 2024 44444 92522 1 Daily as needed Rectal False Fleet Enema 19 gram-7 gram/118 mL Administer per rectum PRN one time if dulcolax suppository not effective. Give on day 6 of no BM 1 2024 Active 2024 19026 19591 6 Daily as needed Rectal False Dextrose 50 % in water (D50W) intravenous solution [generic] Dextrose 50% nilda 20-50 ml (slow push) Intravenous if Glucagon not effective after 15 minutes. CALL 911 for ED Evaluation. 50% nilda 2024 Active 2024 12431 00218 9 Intrav enous False Glucagon (HCl) Emergency Kit 1 mg solution for injection Administer Glucagon 1 mg Intramuscular if 15 minutes after GLucose Gel is administered Glucose remains less than 70 1 mg 2024 Active 2024 84488 57514 2 Intram uscula r False Glucose Gel 40 % oral gel [Dextrose] PRN If resident is unable to swallow (with or without symptoms) and Glucose results less than 70 give GLucose 40% Gel 1 tube orally - Recheck Glucose 15 minutes after administratio n. 1 tube 2024 Active 2024 43326 77759 8 By Mouth False Milk of Magnesia 400 mg/5 mL oral suspension [Magnesium hydroxide] PRN 30ml By Mouth Daily as needed for constipation one time daily if no BM, on day 4 of no BM (PRN refer to instructions) For Constipation 30 mL 2024 Active 2024 01355 76300 6 Daily as needed By Mouth False Januvia 100 mg tablet TAKE ONE (1) TABLET BY MOUTH ONCE DAILY 2024 Active 2024 85228 24672 1 VITAL SIGNS Date Time Diastolic blood pressure Systolic blood pressure Body height Body weight Temperature SpO2 Blood Sugar Pulse Respirations 53449 429 17339 4 59.00 mm[Hg] - Sitting 106.00 mm[Hg] - Sitting 98.40 Tympanic 68.00/ min 18.00/min 20620 429 98809 0 155.60 NI 64479 429 72954 0 66 NI 47795 429 59643 4 59.00 mm[Hg] - Sitting 106.00 mm[Hg] - Sitting 98.40 Tympanic 94.00 % 68.00/ min 18.00/min 60393 429 83875 8 59.00 mm[Hg] - Sitting 106.00 mm[Hg] - Sitting 98.40 Tympanic 68.00/ min 18.00/min 23553 429 27694 9 267.00 mg/dL 13257 429 27429 4 267.00 mg/dL
--- OUTSIDE RECORDS SUMMARY | 2024-07-15 20:54 | External Medical Summary | Continuity Of Care Document ---
Author Name Unknown Address [address] [address] Organization [facility] [place] [facility] () Care Team Providers Care Mandarin Teacher Name Role Phone DO Acuña Amy Primary Care Provider [phone] Allergies Allergy Reaction Start Date End Date [...] Day 3 0.1 mL 07/06 Active 2024 46000 25976 0 1 time Intrad ermal False Tubersol 5 tub. unit/0.1 mL intradermal injection solution [Tuberculin PPD] 0.1mL Intradermal 1 time For PPD 2nd Step Give 2nd Step PPD Day 1 and Read results Day 3 (schedule 7 days after 1st READ) 0.1mL 07/15 Active 2024 93919 08627 0 1 time Intrad ermal False Doxycycline hyclate 100 mg tablet [generic] 100 mg By Mouth Twice daily For Pneumonitis 100 mg 07/08 Active 2024 75543 28722 1 Twice daily By Mouth False Tamiflu 75 mg capsule 75 mg By Mouth Twice daily For Influenza 75 mg 07/07 Active 2024 17825 51502 7 Twice daily By Mouth False Aspirin 81 mg tablet,dominick yed release [generic] 81 mg By Mouth O nce daily Do not crush, chew, or break For CAD 81 mg 2024 Active 2024 99659 16321 9 Once daily By Mouth False Losartan 50 mg tablet [generic] 50 mg By Mouth Once daily For HTN 50 mg 2024 Active 2024 35940 49520 9 Once daily By Mouth False Carbidopa 25 mg-levodopa 100 mg tablet [generic] 1 tab By Mouth 3 times a day For Parkinson's disease 1 tab 2024 Active 2024 07988 40566 1 3 times a day By Mouth False Celebrex 100 mg capsule 100 mg By Mouth Twice daily For Back pain 100 mg 2024 Active 2024 84236 07464 1 Twice daily By Mouth False Cyclobenzap rine 5 mg tablet [generic] 5 mg By Mouth 3 times a day As Needed For Back pain 5 mg 2024 Active 2024 32045 26865 1 3 times a day By Mouth False Donepezil 10 mg tablet [generic] 10 mg By Mouth Once daily For Dementia 10 mg 2024 Active 2024 62680 80750 3 Once daily By Mouth False Duloxetine 30 mg capsule,del ayed release [generic] 30 mg By Mouth Once daily For Depression 30 mg 2024 Active 2024 25481 11345 3 Once daily By Mouth False Jardiance 25 mg tablet 25 mg By Mouth Once daily For Diabetes 25 mg 2024 Active 2024 81123 02882 7 Once daily By Mouth False Entacapone 200 mg tablet [generic] 200 mg By Mouth 3 times a day For Parkinson's Disease 200 mg 2024 Active 2024 22750 28753 1 3 times a day By Mouth False Finasteride 5 mg tablet [generic] 5 mg By Mouth Once daily For BPH 5 mg 2024 Active 2024 67042 85593 1 Once daily By Mouth False Gemfibrozil 600 mg tablet [generic] 600 mg By Mouth Twice daily For Hyperlipidemi a 600 mg 2024 Active 2024 12879 40913 1 Twice daily By Mouth False Insulin [...] one-time order For Diabetes 2024 Active 2024 42103 37346 5 4 times a day Subcut aneous False Lactulose 10 gram/15 mL oral solution [generic] 15 ml By Mouth Twice daily For Constipation 15 ml 2024 Active 2024 44560 47268 8 Twice daily By Mouth False Memantine 10 mg tablet [generic] 10 mg By Mouth Twice daily For Dementia 10 mg 2024 Active 2024 33395 94535 0 Twice daily By Mouth False Metformin 1,000 mg tablet [generic] 1000 mg By Mouth Twice daily For Diabetes 1000 mg 2024 Active 2024 61284 09370 0 Twice daily By Mouth False Myrbetriq 25 mg tablet,exte nded release 25 mg By Mouth Once daily For OAB 25 mg 2024 Active 2024 36649 65255 7 Once daily By Mouth False Sertraline 25 mg tablet [generic] 25 mg By Mouth Once daily For Depression 25 mg 2024 Active 2024 54268 33487 5 Once daily By Mouth False [place]-3 fatty acids 1,000 mg capsule [generic] 1 capsule By Mouth Twice daily For Supplement 1 capsule 2024 Active 2024 20862 54915 7 Twice daily By Mouth False Pantoprazol e 40 mg tablet,dominick yed release [generic] 40 mg By Mouth Once daily For GERD 40 mg 2024 Active 2024 62535 69064 0 Once daily By Mouth False Pramipexole 0.25 mg tablet [generic] 0.25 mg By Mouth Twice daily For Parkinson's disease 0.25 mg 2024 Active 2024 06262 42196 0 Twice daily By Mouth False Pregabalin 75 mg capsule [generic] 75 mg By Mouth Twice daily For Neuropathy 75 mg 2024 Active 2024 47822 26006 9 Twice daily By Mouth False Rasagiline 1 mg tablet [generic] 1 mg By Mouth Once daily For Parkinson's disease 1 mg 2024 Active 2024 44073 24878 0 Once daily By Mouth False Sitagliptin 100 mg tablet [generic] 100 mg By Mouth Once daily For Diabetes 100 mg 2024 Active 2024 64421 75241 3 Once daily By Mouth False Tylenol 325 mg tablet 2 tabs By Mouth Every 4 hours as needed For Pain DO NOT EXCEED 3000 MG APAP/24 Hours 2 tabs 2024 Active 2024 69693 43074 0 Every 4 hours as needed By Mouth False Tylenol 325 mg tablet 2 tabs By Mouth Every 4 hours as needed For Fever >100 DO NOT EXCEED 3000 MG APAP/24 Hours 2 tabs 2024 Active 2024 42084 39942 0 Every 4 hours as needed By Mouth False Dulcolax (bisacodyl) 10 mg rectal suppository One Suppository per rectum PRN if Milk of Magnisia ineffective. Give on day 5 of no BM 1 sup 2024 Active 2024 90371 59027 1 Daily as needed Rectal False Fleet Enema 19 gram-7 gram/118 mL Administer per rectum PRN one time if dulcolax suppository not effective. Give on day 6 of no BM 1 2024 Active 2024 24354 77330 6 Daily as needed Rectal False Dextrose 50 % in water (D50W) intravenous solution [generic] Dextrose 50% nilda 20-50 ml (slow push) Intravenous if Glucagon not effective after 15 minutes. CALL 911 for ED Evaluation. 50% nilda 2024 Active 2024 13412 83556 9 Intrav enous False Glucagon (HCl) Emergency Kit 1 mg solution for injection Administer Glucagon 1 mg Intramuscular if 15 minutes after GLucose Gel is administered Glucose remains less than 70 1 mg 2024 Active 2024 26697 54144 2 Intram uscula r False Glucose Gel 40 % oral gel [Dextrose] PRN If resident is unable to swallow (with or without symptoms) and Glucose results less than 70 give GLucose 40% Gel 1 tube orally - Recheck Glucose 15 minutes after administratio n. 1 tube 2024 Active 2024 72912 04203 8 By Mouth False Milk of Magnesia 400 mg/5 mL oral suspension [Magnesium hydroxide] PRN 30ml By Mouth Daily as needed for constipation one time daily if no BM, on day 4 of no BM (PRN refer to instructions) For Constipation 30 mL 2024 Active 2024 46377 68030 6 Daily as needed By Mouth False Januvia 100 mg tablet TAKE ONE (1) TABLET BY MOUTH ONCE DAILY 2024 Active 2024 03721 39380 1 VITAL SIGNS Date Time Diastolic blood pressure Systolic blood pressure Body height Body weight Temperature SpO2 Blood Sugar Pulse Respirations 00631 429 26757 4 59.00 mm[Hg] - Sitting 106.00 mm[Hg] - Sitting 98.40 Tympanic 68.00/ min 18.00/min 80019 429 71973 0 155.60 NI 50648 429 10519 0 66 NI 90178 429 33411 4 59.00 mm[Hg] - Sitting 106.00 mm[Hg] - Sitting 98.40 Tympanic 94.00 % 68.00/ min 18.00/min 19864 429 81866 8 59.00 mm[Hg] - Sitting 106.00 mm[Hg] - Sitting 98.40 Tympanic 68.00/ min 18.00/min 75930 429 14214 9 267.00 mg/dL 48245 429 31188 4 267.00 mg/dL 12655 430 38823 5 62.00 mm[Hg] - Sitting 115.00 mm[Hg] - Sitting 98.40 Tympanic 95.00 % 80.00/ min 18.00/min 77989 430 84541 8 196.00 mg/dL 43274 430 07462 0 196.00 mg/dL 52157 430 91469 6 66.00 mm[Hg] - Lying Down 100.00 mm[Hg] - Lying Down 34964 430 19172 0 69.00 mm[Hg] - Sitting 118.00 mm[Hg] - Sitting 95518 430 51527 2 73.00 mm[Hg] - T-Standing 123.00 mm[Hg] - T-Standin g 75772 430 97764 9 244.00 mg/dL 51091 430 49395 4 244.00 mg/dL
--- OUTSIDE RECORDS SUMMARY | 2024-07-15 20:54 | External Medical Summary | Continuity Of Care Document ---
Author Name Unknown Address [address] [address] Organization [facility] () Care Team Providers Care Vp Platforms Name Role Phone DO Acuña Amy Primary Care Provider [phone] Allergies Allergy Reaction Start Date End Date [...] Day 3 0.1 mL 07/06 Active 2024 80017 71305 0 1 time Intrad ermal False Tubersol 5 tub. unit/0.1 mL intradermal injection solution [Tuberculin PPD] 0.1mL Intradermal 1 time For PPD 2nd Step Give 2nd Step PPD Day 1 and Read results Day 3 (schedule 7 days after 1st READ) 0.1mL 07/15 Active 2024 36862 80149 0 1 time Intrad ermal False Doxycycline hyclate 100 mg tablet [generic] 100 mg By Mouth Twice daily For Pneumonitis 100 mg 07/08 Active 2024 20056 35847 1 Twice daily By Mouth False Tamiflu 75 mg capsule 75 mg By Mouth Twice daily For Influenza 75 mg 07/07 Active 2024 46398 78949 7 Twice daily By Mouth False Aspirin 81 mg tablet,dominick yed release [generic] 81 mg By Mouth O nce daily Do not crush, chew, or break For CAD 81 mg 2024 Active 2024 93727 72408 9 Once daily By Mouth False Losartan 50 mg tablet [generic] 50 mg By Mouth Once daily For HTN 50 mg 2024 Active 2024 27162 04798 9 Once daily By Mouth False Carbidopa 25 mg-levodopa 100 mg tablet [generic] 1 tab By Mouth 3 times a day For Parkinson's disease 1 tab 2024 Active 2024 14645 68144 1 3 times a day By Mouth False Celebrex 100 mg capsule 100 mg By Mouth Twice daily For Back pain 100 mg 2024 Active 2024 63478 15923 1 Twice daily By Mouth False Cyclobenzap rine 5 mg tablet [generic] 5 mg By Mouth 3 times a day As Needed For Back pain 5 mg 2024 Active 2024 35552 44892 1 3 times a day By Mouth False Donepezil 10 mg tablet [generic] 10 mg By Mouth Once daily For Dementia 10 mg 2024 Active 2024 96244 84676 3 Once daily By Mouth False Duloxetine 30 mg capsule,del ayed release [generic] 30 mg By Mouth Once daily For Depression 30 mg 2024 Active 2024 95748 88135 3 Once daily By Mouth False Jardiance 25 mg tablet 25 mg By Mouth Once daily For Diabetes 25 mg 2024 Active 2024 55257 56344 7 Once daily By Mouth False Entacapone 200 mg tablet [generic] 200 mg By Mouth 3 times a day For Parkinson's Disease 200 mg 2024 Active 2024 29782 30181 1 3 times a day By Mouth False Finasteride 5 mg tablet [generic] 5 mg By Mouth Once daily For BPH 5 mg 2024 Active 2024 74297 83510 1 Once daily By Mouth False Gemfibrozil 600 mg tablet [generic] 600 mg By Mouth Twice daily For Hyperlipidemi a 600 mg 2024 Active 2024 29146 39121 1 Twice daily By Mouth False Insulin [...] one-time order For Diabetes 2024 Active 2024 25776 97178 5 4 times a day Subcut aneous False Lactulose 10 gram/15 mL oral solution [generic] 15 ml By Mouth Twice daily For Constipation 15 ml 2024 Active 2024 74542 53786 8 Twice daily By Mouth False Memantine 10 mg tablet [generic] 10 mg By Mouth Twice daily For Dementia 10 mg 2024 Active 2024 58124 19578 0 Twice daily By Mouth False Metformin 1,000 mg tablet [generic] 1000 mg By Mouth Twice daily For Diabetes 1000 mg 2024 Active 2024 78965 05863 0 Twice daily By Mouth False Myrbetriq 25 mg tablet,exte nded release 25 mg By Mouth Once daily For OAB 25 mg 2024 Active 2024 41639 18123 7 Once daily By Mouth False Sertraline 25 mg tablet [generic] 25 mg By Mouth Once daily For Depression 25 mg 2024 Active 2024 10342 50964 5 Once daily By Mouth False [place]-3 fatty acids 1,000 mg capsule [generic] 1 capsule By Mouth Twice daily For Supplement 1 capsule 2024 Active 2024 78502 93870 7 Twice daily By Mouth False Pantoprazol e 40 mg tablet,dominick yed release [generic] 40 mg By Mouth Once daily For GERD 40 mg 2024 Active 2024 49461 82709 0 Once daily By Mouth False Pramipexole 0.25 mg tablet [generic] 0.25 mg By Mouth Twice daily For Parkinson's disease 0.25 mg 2024 Active 2024 02705 38677 0 Twice daily By Mouth False Pregabalin 75 mg capsule [generic] 75 mg By Mouth Twice daily For Neuropathy 75 mg 2024 Active 2024 62834 56885 9 Twice daily By Mouth False Rasagiline 1 mg tablet [generic] 1 mg By Mouth Once daily For Parkinson's disease 1 mg 2024 Active 2024 27245 24613 0 Once daily By Mouth False Sitagliptin 100 mg tablet [generic] 100 mg By Mouth Once daily For Diabetes 100 mg 2024 Active 2024 38213 34247 3 Once daily By Mouth False Tylenol 325 mg tablet 2 tabs By Mouth Every 4 hours as needed For Pain DO NOT EXCEED 3000 MG APAP/24 Hours 2 tabs 2024 Active 2024 65946 27196 0 Every 4 hours as needed By Mouth False Tylenol 325 mg tablet 2 tabs By Mouth Every 4 hours as needed For Fever >100 DO NOT EXCEED 3000 MG APAP/24 Hours 2 tabs 2024 Active 2024 19393 51692 0 Every 4 hours as needed By Mouth False Dulcolax (bisacodyl) 10 mg rectal suppository One Suppository per rectum PRN if Milk of Magnisia ineffective. Give on day 5 of no BM 1 sup 2024 Active 2024 26973 80980 1 Daily as needed Rectal False Fleet Enema 19 gram-7 gram/118 mL Administer per rectum PRN one time if dulcolax suppository not effective. Give on day 6 of no BM 1 2024 Active 2024 50229 05696 6 Daily as needed Rectal False Dextrose 50 % in water (D50W) intravenous solution [generic] Dextrose 50% nilda 20-50 ml (slow push) Intravenous if Glucagon not effective after 15 minutes. CALL 911 for ED Evaluation. 50% nilda 2024 Active 2024 05445 03035 9 Intrav enous False Glucagon (HCl) Emergency Kit 1 mg solution for injection Administer Glucagon 1 mg Intramuscular if 15 minutes after GLucose Gel is administered Glucose remains less than 70 1 mg 2024 Active 2024 22142 87896 2 Intram uscula r False Glucose Gel 40 % oral gel [Dextrose] PRN If resident is unable to swallow (with or without symptoms) and Glucose results less than 70 give GLucose 40% Gel 1 tube orally - Recheck Glucose 15 minutes after administratio n. 1 tube 2024 Active 2024 70948 56008 8 By Mouth False Milk of Magnesia 400 mg/5 mL oral suspension [Magnesium hydroxide] PRN 30ml By Mouth Daily as needed for constipation one time daily if no BM, on day 4 of no BM (PRN refer to instructions) For Constipation 30 mL 2024 Active 2024 80205 48018 6 Daily as needed By Mouth False Januvia 100 mg tablet TAKE ONE (1) TABLET BY MOUTH ONCE DAILY 2024 Active 2024 15642 91078 1 VITAL SIGNS Date Time Diastolic blood pressure Systolic blood pressure Body height Body weight Temperature SpO2 Blood Sugar Pulse Respirations 11665 429 38833 4 59.00 mm[Hg] - Sitting 106.00 mm[Hg] - Sitting 98.40 Tympanic 68.00/ min 18.00/min 11559 429 38506 0 155.60 NI 57333 429 99805 0 66 NI 92995 429 11152 4 59.00 mm[Hg] - Sitting 106.00 mm[Hg] - Sitting 98.40 Tympanic 94.00 % 68.00/ min 18.00/min 84290 429 86375 8 59.00 mm[Hg] - Sitting 106.00 mm[Hg] - Sitting 98.40 Tympanic 68.00/ min 18.00/min 26956 429 01984 9 267.00 mg/dL 53353 429 42210 4 267.00 mg/dL 74091 430 28234 8 196.00 mg/dL 57057 430 36831 0 196.00 mg/dL
--- OUTSIDE RECORDS SUMMARY | 2024-07-15 20:54 | External Medical Summary | Continuity Of Care Document ---
Author Name Unknown Address [address] [address] Organization [facility] () Care Team Providers Care Inspecting Engineer Name Role Phone DO Acuña Amy Primary Care Provider [phone] VITAL SIGNS Date Time Diastolic blood pressure Systolic blood pressure Body height Body weight Temperature SpO2 Blood Sugar Pulse Respirations 64405 429 24349 0 155.60 NI
--- OUTSIDE RECORDS SUMMARY | 2024-07-15 20:54 | External Medical Summary | Continuity Of Care Document ---
Author Name Unknown Address [address] [address] Organization [facility] () Care Team Providers Care Manuscript Reader Name Role Phone DO cAuña Amy Primary Care Provider [phone] VITAL SIGNS Date Time Diastolic blood pressure Systolic blood pressure Body height Body weight Temperature SpO2 Blood Sugar Pulse Respirations 39936 429 36219 0 155.60 NI
--- OUTSIDE RECORDS SUMMARY | 2024-07-15 20:54 | External Medical Summary | Continuity Of Care Document ---
Author Name Unknown Address [address] [address] [facility] () Care Team Providers Care Foster Care Worker Name Role Phone DO Acuña Amy Primary Care Provider [phone] Allergies Allergy Reaction Start Date End Date [...] Day 3 0.1 mL 07/06 Active 2024 90287 54897 0 1 time Intrad ermal False Tubersol 5 tub. unit/0.1 mL intradermal injection solution [Tuberculin PPD] 0.1mL Intradermal 1 time For PPD 2nd Step Give 2nd Step PPD Day 1 and Read results Day 3 (schedule 7 days after 1st READ) 0.1mL 07/15 Active 2024 55772 51930 0 1 time Intrad ermal False Doxycycline hyclate 100 mg tablet [generic] 100 mg By Mouth Twice daily For Pneumonitis 100 mg 07/08 Active 2024 15148 98831 1 Twice daily By Mouth False Tamiflu 75 mg capsule 75 mg By Mouth Twice daily For Influenza 75 mg 07/07 Active 2024 38440 85439 7 Twice daily By Mouth False Aspirin 81 mg tablet,dominick yed release [generic] 81 mg By Mouth O nce daily Do not crush, chew, or break For CAD 81 mg 2024 Active 2024 26577 21421 9 Once daily By Mouth False Losartan 50 mg tablet [generic] 50 mg By Mouth Once daily For HTN 50 mg 2024 Active 2024 39053 98019 9 Once daily By Mouth False Carbidopa 25 mg-levodopa 100 mg tablet [generic] 1 tab By Mouth 3 times a day For Parkinson's disease 1 tab 2024 Active 2024 27284 81214 1 3 times a day By Mouth False Celebrex 100 mg capsule 100 mg By Mouth Twice daily For Back pain 100 mg 2024 Active 2024 95771 32485 1 Twice daily By Mouth False Cyclobenzap rine 5 mg tablet [generic] 5 mg By Mouth 3 times a day As Needed For Back pain 5 mg 2024 Active 2024 33247 78979 1 3 times a day By Mouth False Donepezil 10 mg tablet [generic] 10 mg By Mouth Once daily For Dementia 10 mg 2024 Active 2024 35862 09958 3 Once daily By Mouth False Duloxetine 30 mg capsule,del ayed release [generic] 30 mg By Mouth Once daily For Depression 30 mg 2024 Active 2024 84871 27387 3 Once daily By Mouth False Jardiance 25 mg tablet 25 mg By Mouth Once daily For Diabetes 25 mg 2024 Active 2024 38804 79614 7 Once daily By Mouth False Entacapone 200 mg tablet [generic] 200 mg By Mouth 3 times a day For Parkinson's Disease 200 mg 2024 Active 2024 61136 26348 1 3 times a day By Mouth False Finasteride 5 mg tablet [generic] 5 mg By Mouth Once daily For BPH 5 mg 2024 Active 2024 55208 49687 1 Once daily By Mouth False Gemfibrozil 600 mg tablet [generic] 600 mg By Mouth Twice daily For Hyperlipidemi a 600 mg 2024 Active 2024 26361 45990 1 Twice daily By Mouth False Insulin [...] one-time order For Diabetes 2024 Active 2024 92889 90221 5 4 times a day Subcut aneous False Lactulose 10 gram/15 mL oral solution [generic] 15 ml By Mouth Twice daily For Constipation 15 ml 2024 Active 2024 86890 62129 8 Twice daily By Mouth False Memantine 10 mg tablet [generic] 10 mg By Mouth Twice daily For Dementia 10 mg 2024 Active 2024 19784 58962 0 Twice daily By Mouth False Metformin 1,000 mg tablet [generic] 1000 mg By Mouth Twice daily For Diabetes 1000 mg 2024 Active 2024 96028 59245 0 Twice daily By Mouth False Myrbetriq 25 mg tablet,exte nded release 25 mg By Mouth Once daily For OAB 25 mg 2024 Active 2024 20034 07486 7 Once daily By Mouth False Sertraline 25 mg tablet [generic] 25 mg By Mouth Once daily For Depression 25 mg 2024 Active 2024 71460 75870 5 Once daily By Mouth False [place]-3 fatty acids 1,000 mg capsule [generic] 1 capsule By Mouth Twice daily For Supplement 1 capsule 2024 Active 2024 16995 93644 7 Twice daily By Mouth False Pantoprazol e 40 mg tablet,dominick yed release [generic] 40 mg By Mouth Once daily For GERD 40 mg 2024 Active 2024 75221 94243 0 Once daily By Mouth False Pramipexole 0.25 mg tablet [generic] 0.25 mg By Mouth Twice daily For Parkinson's disease 0.25 mg 2024 Active 2024 95870 00833 0 Twice daily By Mouth False Pregabalin 75 mg capsule [generic] 75 mg By Mouth Twice daily For Neuropathy 75 mg 2024 Active 2024 38332 18960 9 Twice daily By Mouth False Rasagiline 1 mg tablet [generic] 1 mg By Mouth Once daily For Parkinson's disease 1 mg 2024 Active 2024 43468 45742 0 Once daily By Mouth False Sitagliptin 100 mg tablet [generic] 100 mg By Mouth Once daily For Diabetes 100 mg 2024 Active 2024 74265 78035 3 Once daily By Mouth False Tylenol 325 mg tablet 2 tabs By Mouth Every 4 hours as needed For Pain DO NOT EXCEED 3000 MG APAP/24 Hours 2 tabs 2024 Active 2024 25790 41262 0 Every 4 hours as needed By Mouth False Tylenol 325 mg tablet 2 tabs By Mouth Every 4 hours as needed For Fever >100 DO NOT EXCEED 3000 MG APAP/24 Hours 2 tabs 2024 Active 2024 96743 29391 0 Every 4 hours as needed By Mouth False Dulcolax (bisacodyl) 10 mg rectal suppository One Suppository per rectum PRN if Milk of Magnisia ineffective. Give on day 5 of no BM 1 sup 2024 Active 2024 78533 68133 1 Daily as needed Rectal False Fleet Enema 19 gram-7 gram/118 mL Administer per rectum PRN one time if dulcolax suppository not effective. Give on day 6 of no BM 1 2024 Active 2024 99080 20584 6 Daily as needed Rectal False Dextrose 50 % in water (D50W) intravenous solution [generic] Dextrose 50% nilda 20-50 ml (slow push) Intravenous if Glucagon not effective after 15 minutes. CALL 911 for ED Evaluation. 50% nilda 2024 Active 2024 65066 65110 9 Intrav enous False Glucagon (HCl) Emergency Kit 1 mg solution for injection Administer Glucagon 1 mg Intramuscular if 15 minutes after GLucose Gel is administered Glucose remains less than 70 1 mg 2024 Active 2024 21763 99974 2 Intram uscula r False Glucose Gel 40 % oral gel [Dextrose] PRN If resident is unable to swallow (with or without symptoms) and Glucose results less than 70 give GLucose 40% Gel 1 tube orally - Recheck Glucose 15 minutes after administratio n. 1 tube 2024 Active 2024 25023 74805 8 By Mouth False Milk of Magnesia 400 mg/5 mL oral suspension [Magnesium hydroxide] PRN 30ml By Mouth Daily as needed for constipation one time daily if no BM, on day 4 of no BM (PRN refer to instructions) For Constipation 30 mL 2024 Active 2024 56843 53147 6 Daily as needed By Mouth False Januvia 100 mg tablet TAKE ONE (1) TABLET BY MOUTH ONCE DAILY 2024 Active 2024 92569 13110 1 VITAL SIGNS Date Time Diastolic blood pressure Systolic blood pressure Body height Body weight Temperature SpO2 Blood Sugar Pulse Respirations 61067 429 21220 4 59.00 mm[Hg] - Sitting 106.00 mm[Hg] - Sitting 98.40 Tympanic 68.00/ min 18.00/min 04098 429 24180 0 155.60 NI 08889 429 80035 0 66 NI 98188 429 58365 4 59.00 mm[Hg] - Sitting 106.00 mm[Hg] - Sitting 98.40 Tympanic 94.00 % 68.00/ min 18.00/min 48195 429 41879 8 59.00 mm[Hg] - Sitting 106.00 mm[Hg] - Sitting 98.40 Tympanic 68.00/ min 18.00/min 25991 429 19270 9 267.00 mg/dL 50526 429 71286 4 267.00 mg/dL 27309 430 68248 8 196.00 mg/dL 31954 430 42304 0 196.00 mg/dL
--- OUTSIDE RECORDS SUMMARY | 2024-07-15 20:54 | External Medical Summary | Continuity Of Care Document ---
Author Name Unknown Address [address] [address] Organization [facility] () Care Team Providers Care Precision Mechanical Instrument Maker Name Role Phone DO Acuña Amy Primary Care Provider [phone] Allergies Allergy Reaction Start Date End Date Status NO KNOWN ALLERGIES Active Medications Medication Instructions Dosage Start Date End Date Status Order Date Drug Code Frequency Route of Admin Diagnosis Code Substitutions Allowed Doxycycline hyclate 100 mg tablet [generic] 100 mg By Mouth Twice daily For Pneumonitis 100 mg 07/08 Active 2024 12751 38384 1 Twice daily By Mouth False Tamiflu 75 mg capsule 75 mg By Mouth Twice daily For Influenza 75 mg 07/07 Active 2024 57775 99392 7 Twice daily By Mouth False Aspirin 81 mg tablet,dominick yed release [generic] 81 mg By Mouth O nce daily Do not crush, chew, or break For CAD 81 mg 2024 Active 2024 62181 16762 9 Once daily By Mouth False Losartan 50 mg tablet [generic] 50 mg By Mouth Once daily For HTN 50 mg 2024 Active 2024 29801 46077 9 Once daily By Mouth False Carbidopa 25 mg-levodopa 100 mg tablet [generic] 1 tab By Mouth 3 times a day For Parkinson's disease 1 tab 2024 Active 2024 92392 69347 1 3 times a day By Mouth False Celebrex 100 mg capsule 100 mg By Mouth Twice daily For Back pain 100 mg 2024 Active 2024 80766 29200 1 Twice daily By Mouth False Cyclobenzap rine 5 mg tablet [generic] 5 mg By Mouth 3 times a day As Needed For Back pain 5 mg 2024 Active 2024 97312 73018 1 3 times a day By Mouth False Donepezil 10 mg tablet [generic] 10 mg By Mouth Once daily For Dementia 10 mg 2024 Active 2024 63333 84912 3 Once daily By Mouth False Duloxetine 30 mg capsule,del ayed release [generic] 30 mg By Mouth Once daily For Depression 30 mg 2024 Active 2024 22549 21866 3 Once daily By Mouth False Jardiance 25 mg tablet 25 mg By Mouth Once daily For Diabetes 25 mg 2024 Active 2024 75163 20356 7 Once daily By Mouth False Entacapone 200 mg tablet [generic] 200 mg By Mouth 3 times a day For Parkinson's Disease 200 mg 2024 Active 2024 49583 17139 1 3 times a day By Mouth False Finasteride 5 mg tablet [generic] 5 mg By Mouth Once daily For BPH 5 mg 2024 Active 2024 84782 87757 1 Once daily By Mouth False Gemfibrozil 600 mg tablet [generic] 600 mg By Mouth Twice daily For Hyperlipidemi a 600 mg 2024 Active 2024 82311 46197 1 Twice daily By Mouth False Insulin [...] one-time order For Diabetes 2024 Active 2024 77064 88702 5 4 times a day Subcut aneous False Lactulose 10 gram/15 mL oral solution [generic] 15 ml By Mouth Twice daily For Constipation 15 ml 2024 Active 2024 43529 82517 8 Twice daily By Mouth False Memantine 10 mg tablet [generic] 10 mg By Mouth Twice daily For Dementia 10 mg 2024 Active 2024 95341 57931 0 Twice daily By Mouth False Metformin 1,000 mg tablet [generic] 1000 mg By Mouth Twice daily For Diabetes 1000 mg 2024 Active 2024 30455 07170 0 Twice daily By Mouth False Myrbetriq 25 mg tablet,exte nded release 25 mg By Mouth Once daily For OAB 25 mg 2024 Active 2024 59738 72288 7 Once daily By Mouth False Sertraline 25 mg tablet [generic] 25 mg By Mouth Once daily For Depression 25 mg 2024 Active 2024 87132 11766 5 Once daily By Mouth False [place]-3 fatty acids 1,000 mg capsule [generic] 1 capsule By Mouth Twice daily For Supplement 1 capsule 2024 Active 2024 89206 45756 7 Twice daily By Mouth False Pantoprazol e 40 mg tablet,dominick yed release [generic] 40 mg By Mouth Once daily For GERD 40 mg 2024 Active 2024 13552 67517 0 Once daily By Mouth False Pramipexole 0.25 mg tablet [generic] 0.25 mg By Mouth Twice daily For Parkinson's disease 0.25 mg 2024 Active 2024 43568 39679 0 Twice daily By Mouth False Pregabalin 75 mg capsule [generic] 75 mg By Mouth Twice daily For Neuropathy 75 mg 2024 Active 2024 19586 58879 9 Twice daily By Mouth False Rasagiline 1 mg tablet [generic] 1 mg By Mouth Once daily For Parkinson's disease 1 mg 2024 Active 2024 36685 28636 0 Once daily By Mouth False Sitagliptin 100 mg tablet [generic] 100 mg By Mouth Once daily For Diabetes 100 mg 2024 00/00 /0000 Active 2024 34320 59405 3 Once daily By Mouth False VITAL SIGNS Date Time Diastolic blood pressure Systolic blood pressure Body height Body weight Temperature SpO2 Blood Sugar Pulse Respirations 67246 429 88225 0 155.60 NI 74113 429 24557 0 66 NI 66750 429 32884 4 59.00 mm[Hg] - Sitting 106.00 mm[Hg] - Sitting 98.40 Tympanic 94.00 % 68.00/ min 18.00/min
--- OUTSIDE RECORDS SUMMARY | 2024-07-15 20:54 | External Medical Summary | Continuity Of Care Document ---
Author Name Unknown Address [address] [address] [facility] () Care Team Providers Care Ehr Trainer Name Role Phone DO Acuña Amy Primary Care Provider [phone] Allergies Allergy Reaction Start Date End Date [...] Day 3 0.1 mL 07/06 Active 2024 12314 44557 0 1 time Intrad ermal False Tubersol 5 tub. unit/0.1 mL intradermal injection solution [Tuberculin PPD] 0.1mL Intradermal 1 time For PPD 2nd Step Give 2nd Step PPD Day 1 and Read results Day 3 (schedule 7 days after 1st READ) 0.1mL 07/15 Active 2024 57638 59501 0 1 time Intrad ermal False Doxycycline hyclate 100 mg tablet [generic] 100 mg By Mouth Twice daily For Pneumonitis 100 mg 07/08 Active 2024 12789 57104 1 Twice daily By Mouth False Tamiflu 75 mg capsule 75 mg By Mouth Twice daily For Influenza 75 mg 07/07 Active 2024 27178 52875 7 Twice daily By Mouth False Aspirin 81 mg tablet,dominick yed release [generic] 81 mg By Mouth O nce daily Do not crush, chew, or break For CAD 81 mg 2024 Active 2024 61695 08576 9 Once daily By Mouth False Losartan 50 mg tablet [generic] 50 mg By Mouth Once daily For HTN 50 mg 2024 Active 2024 55035 34197 9 Once daily By Mouth False Carbidopa 25 mg-levodopa 100 mg tablet [generic] 1 tab By Mouth 3 times a day For Parkinson's disease 1 tab 2024 Active 2024 22774 40714 1 3 times a day By Mouth False Celebrex 100 mg capsule 100 mg By Mouth Twice daily For Back pain 100 mg 2024 Active 2024 81877 12146 1 Twice daily By Mouth False Cyclobenzap rine 5 mg tablet [generic] 5 mg By Mouth 3 times a day As Needed For Back pain 5 mg 2024 Active 2024 09052 92139 1 3 times a day By Mouth False Donepezil 10 mg tablet [generic] 10 mg By Mouth Once daily For Dementia 10 mg 2024 Active 2024 23190 95454 3 Once daily By Mouth False Duloxetine 30 mg capsule,del ayed release [generic] 30 mg By Mouth Once daily For Depression 30 mg 2024 Active 2024 57553 98280 3 Once daily By Mouth False Jardiance 25 mg tablet 25 mg By Mouth Once daily For Diabetes 25 mg 2024 Active 2024 78831 94514 7 Once daily By Mouth False Entacapone 200 mg tablet [generic] 200 mg By Mouth 3 times a day For Parkinson's Disease 200 mg 2024 Active 2024 64666 98502 1 3 times a day By Mouth False Finasteride 5 mg tablet [generic] 5 mg By Mouth Once daily For BPH 5 mg 2024 Active 2024 52205 77889 1 Once daily By Mouth False Gemfibrozil 600 mg tablet [generic] 600 mg By Mouth Twice daily For Hyperlipidemi a 600 mg 2024 Active 2024 37803 21446 1 Twice daily By Mouth False Insulin [...] one-time order For Diabetes 2024 Active 2024 49989 46186 5 4 times a day Subcut aneous False Lactulose 10 gram/15 mL oral solution [generic] 15 ml By Mouth Twice daily For Constipation 15 ml 2024 Active 2024 25462 29760 8 Twice daily By Mouth False Memantine 10 mg tablet [generic] 10 mg By Mouth Twice daily For Dementia 10 mg 2024 Active 2024 92244 52778 0 Twice daily By Mouth False Metformin 1,000 mg tablet [generic] 1000 mg By Mouth Twice daily For Diabetes 1000 mg 2024 Active 2024 35600 55353 0 Twice daily By Mouth False Myrbetriq 25 mg tablet,exte nded release 25 mg By Mouth Once daily For OAB 25 mg 2024 Active 2024 48619 69516 7 Once daily By Mouth False Sertraline 25 mg tablet [generic] 25 mg By Mouth Once daily For Depression 25 mg 2024 Active 2024 77598 63750 5 Once daily By Mouth False [place]-3 fatty acids 1,000 mg capsule [generic] 1 capsule By Mouth Twice daily For Supplement 1 capsule 2024 Active 2024 47301 29539 7 Twice daily By Mouth False Pantoprazol e 40 mg tablet,dominick yed release [generic] 40 mg By Mouth Once daily For GERD 40 mg 2024 Active 2024 76176 05424 0 Once daily By Mouth False Pramipexole 0.25 mg tablet [generic] 0.25 mg By Mouth Twice daily For Parkinson's disease 0.25 mg 2024 Active 2024 14400 48547 0 Twice daily By Mouth False Pregabalin 75 mg capsule [generic] 75 mg By Mouth Twice daily For Neuropathy 75 mg 2024 Active 2024 18250 83663 9 Twice daily By Mouth False Rasagiline 1 mg tablet [generic] 1 mg By Mouth Once daily For Parkinson's disease 1 mg 2024 Active 2024 00647 29009 0 Once daily By Mouth False Sitagliptin 100 mg tablet [generic] 100 mg By Mouth Once daily For Diabetes 100 mg 2024 Active 2024 60532 55111 3 Once daily By Mouth False Tylenol 325 mg tablet 2 tabs By Mouth Every 4 hours as needed For Pain DO NOT EXCEED 3000 MG APAP/24 Hours 2 tabs 2024 Active 2024 69078 19684 0 Every 4 hours as needed By Mouth False Tylenol 325 mg tablet 2 tabs By Mouth Every 4 hours as needed For Fever >100 DO NOT EXCEED 3000 MG APAP/24 Hours 2 tabs 2024 Active 2024 05287 30006 0 Every 4 hours as needed By Mouth False Dulcolax (bisacodyl) 10 mg rectal suppository One Suppository per rectum PRN if Milk of Magnisia ineffective. Give on day 5 of no BM 1 sup 2024 Active 2024 39414 01772 1 Daily as needed Rectal False Fleet Enema 19 gram-7 gram/118 mL Administer per rectum PRN one time if dulcolax suppository not effective. Give on day 6 of no BM 1 2024 Active 2024 42392 17045 6 Daily as needed Rectal False Dextrose 50 % in water (D50W) intravenous solution [generic] Dextrose 50% nilda 20-50 ml (slow push) Intravenous if Glucagon not effective after 15 minutes. CALL 911 for ED Evaluation. 50% nilda 2024 Active 2024 32115 33772 9 Intrav enous False Glucagon (HCl) Emergency Kit 1 mg solution for injection Administer Glucagon 1 mg Intramuscular if 15 minutes after GLucose Gel is administered Glucose remains less than 70 1 mg 2024 Active 2024 84128 30511 2 Intram uscula r False Glucose Gel 40 % oral gel [Dextrose] PRN If resident is unable to swallow (with or without symptoms) and Glucose results less than 70 give GLucose 40% Gel 1 tube orally - Recheck Glucose 15 minutes after administratio n. 1 tube 2024 Active 2024 54669 04200 8 By Mouth False Milk of Magnesia 400 mg/5 mL oral suspension [Magnesium hydroxide] PRN 30ml By Mouth Daily as needed for constipation one time daily if no BM, on day 4 of no BM (PRN refer to instructions) For Constipation 30 mL 2024 Active 2024 53787 78635 6 Daily as needed By Mouth False VITAL SIGNS Date Time Diastolic blood pressure Systolic blood pressure Body height Body weight Temperature SpO2 Blood Sugar Pulse Respirations 80837 429 04558 0 155.60 NI 46527 429 76446 0 66 NI 61641 429 16240 4 59.00 mm[Hg] - Sitting 106.00 mm[Hg] - Sitting 98.40 Tympanic 94.00 % 68.00/ min 18.00/min 02008 429 48045 8 59.00 mm[Hg] - Sitting 106.00 mm[Hg] - Sitting 98.40 Tympanic 68.00/ min 18.00/min 11027 429 99952 9 267.00 mg/dL 38397 429 24936 4 267.00 mg/dL
--- OUTSIDE RECORDS SUMMARY | 2024-07-15 20:54 | External Medical Summary | Continuity Of Care Document ---
Author Name Unknown Address [address] [address] Organization [facility] () Care Team Providers Care Heavy Duty Custodian Name Role Phone DO Acuña Amy Primary Care Provider [phone] Medications Medication Instructions Dosage Start Date End Date Status Order Date Drug Code Frequency Route of Admin Diagnosis Code Substitutions Allowed Doxycycline hyclate 100 mg tablet [generic] 100 mg By Mouth Twice daily For Pneumonitis 100 mg 07/08 Active 2024 11470 46577 1 Twice daily By Mouth False Tamiflu 75 mg capsule 75 mg By Mouth Twice daily For Influenza 75 mg 07/07 Active 2024 98885 87095 7 Twice daily By Mouth False VITAL SIGNS Date Time Diastolic blood pressure Systolic blood pressure Body height Body weight Temperature SpO2 Blood Sugar Pulse Respirations 90032 429 20583 0 155.60 NI
--- OUTSIDE RECORDS SUMMARY | 2024-07-15 20:54 | External Medical Summary | Continuity Of Care Document ---
Author Name Unknown Address [address] [address] [facility] () Care Team Providers Care Lobster Catcher Name Role Phone DO Acuña Amy Primary Care Provider [phone] Allergies Allergy Reaction Start Date End Date [...] Day 3 0.1 mL 07/06 Active 2024 36346 04338 0 1 time Intrad ermal False Tubersol 5 tub. unit/0.1 mL intradermal injection solution [Tuberculin PPD] 0.1mL Intradermal 1 time For PPD 2nd Step Give 2nd Step PPD Day 1 and Read results Day 3 (schedule 7 days after 1st READ) 0.1mL 07/15 Active 2024 43277 89785 0 1 time Intrad ermal False Doxycycline hyclate 100 mg tablet [generic] 100 mg By Mouth Twice daily For Pneumonitis 100 mg 07/08 Active 2024 95462 05164 1 Twice daily By Mouth False Tamiflu 75 mg capsule 75 mg By Mouth Twice daily For Influenza 75 mg 07/07 Active 2024 14140 21927 7 Twice daily By Mouth False Aspirin 81 mg tablet,dominick yed release [generic] 81 mg By Mouth O nce daily Do not crush, chew, or break For CAD 81 mg 2024 Active 2024 25980 74969 9 Once daily By Mouth False Losartan 50 mg tablet [generic] 50 mg By Mouth Once daily For HTN 50 mg 2024 Active 2024 91027 34868 9 Once daily By Mouth False Carbidopa 25 mg-levodopa 100 mg tablet [generic] 1 tab By Mouth 3 times a day For Parkinson's disease 1 tab 2024 Active 2024 85316 98757 1 3 times a day By Mouth False Celebrex 100 mg capsule 100 mg By Mouth Twice daily For Back pain 100 mg 2024 Active 2024 02672 22837 1 Twice daily By Mouth False Cyclobenzap rine 5 mg tablet [generic] 5 mg By Mouth 3 times a day As Needed For Back pain 5 mg 2024 Active 2024 04472 90361 1 3 times a day By Mouth False Donepezil 10 mg tablet [generic] 10 mg By Mouth Once daily For Dementia 10 mg 2024 Active 2024 81587 74005 3 Once daily By Mouth False Duloxetine 30 mg capsule,del ayed release [generic] 30 mg By Mouth Once daily For Depression 30 mg 2024 Active 2024 15376 85799 3 Once daily By Mouth False Jardiance 25 mg tablet 25 mg By Mouth Once daily For Diabetes 25 mg 2024 Active 2024 96989 47031 7 Once daily By Mouth False Entacapone 200 mg tablet [generic] 200 mg By Mouth 3 times a day For Parkinson's Disease 200 mg 2024 Active 2024 85781 91163 1 3 times a day By Mouth False Finasteride 5 mg tablet [generic] 5 mg By Mouth Once daily For BPH 5 mg 2024 Active 2024 14091 86444 1 Once daily By Mouth False Gemfibrozil 600 mg tablet [generic] 600 mg By Mouth Twice daily For Hyperlipidemi a 600 mg 2024 Active 2024 98223 84440 1 Twice daily By Mouth False Insulin [...] one-time order For Diabetes 2024 Active 2024 45411 97843 5 4 times a day Subcut aneous False Lactulose 10 gram/15 mL oral solution [generic] 15 ml By Mouth Twice daily For Constipation 15 ml 2024 Active 2024 91882 16469 8 Twice daily By Mouth False Memantine 10 mg tablet [generic] 10 mg By Mouth Twice daily For Dementia 10 mg 2024 Active 2024 94025 40428 0 Twice daily By Mouth False Metformin 1,000 mg tablet [generic] 1000 mg By Mouth Twice daily For Diabetes 1000 mg 2024 Active 2024 33915 77127 0 Twice daily By Mouth False Myrbetriq 25 mg tablet,exte nded release 25 mg By Mouth Once daily For OAB 25 mg 2024 Active 2024 76371 83858 7 Once daily By Mouth False Sertraline 25 mg tablet [generic] 25 mg By Mouth Once daily For Depression 25 mg 2024 Active 2024 94532 29612 5 Once daily By Mouth False [place]-3 fatty acids 1,000 mg capsule [generic] 1 capsule By Mouth Twice daily For Supplement 1 capsule 2024 Active 2024 37005 32001 7 Twice daily By Mouth False Pantoprazol e 40 mg tablet,dominick yed release [generic] 40 mg By Mouth Once daily For GERD 40 mg 2024 Active 2024 45022 50652 0 Once daily By Mouth False Pramipexole 0.25 mg tablet [generic] 0.25 mg By Mouth Twice daily For Parkinson's disease 0.25 mg 2024 Active 2024 30774 34084 0 Twice daily By Mouth False Pregabalin 75 mg capsule [generic] 75 mg By Mouth Twice daily For Neuropathy 75 mg 2024 Active 2024 65584 34226 9 Twice daily By Mouth False Rasagiline 1 mg tablet [generic] 1 mg By Mouth Once daily For Parkinson's disease 1 mg 2024 Active 2024 17673 31966 0 Once daily By Mouth False Sitagliptin 100 mg tablet [generic] 100 mg By Mouth Once daily For Diabetes 100 mg 2024 Active 2024 31845 73447 3 Once daily By Mouth False Tylenol 325 mg tablet 2 tabs By Mouth Every 4 hours as needed For Pain DO NOT EXCEED 3000 MG APAP/24 Hours 2 tabs 2024 Active 2024 86814 54637 0 Every 4 hours as needed By Mouth False Tylenol 325 mg tablet 2 tabs By Mouth Every 4 hours as needed For Fever >100 DO NOT EXCEED 3000 MG APAP/24 Hours 2 tabs 2024 Active 2024 74646 61001 0 Every 4 hours as needed By Mouth False Dulcolax (bisacodyl) 10 mg rectal suppository One Suppository per rectum PRN if Milk of Magnisia ineffective. Give on day 5 of no BM 1 sup 2024 Active 2024 36675 52008 1 Daily as needed Rectal False Fleet Enema 19 gram-7 gram/118 mL Administer per rectum PRN one time if dulcolax suppository not effective. Give on day 6 of no BM 1 2024 Active 2024 31612 13028 6 Daily as needed Rectal False Dextrose 50 % in water (D50W) intravenous solution [generic] Dextrose 50% nilda 20-50 ml (slow push) Intravenous if Glucagon not effective after 15 minutes. CALL 911 for ED Evaluation. 50% nilda 2024 Active 2024 62561 76643 9 Intrav enous False Glucagon (HCl) Emergency Kit 1 mg solution for injection Administer Glucagon 1 mg Intramuscular if 15 minutes after GLucose Gel is administered Glucose remains less than 70 1 mg 2024 Active 2024 41342 55032 2 Intram uscula r False Glucose Gel 40 % oral gel [Dextrose] PRN If resident is unable to swallow (with or without symptoms) and Glucose results less than 70 give GLucose 40% Gel 1 tube orally - Recheck Glucose 15 minutes after administratio n. 1 tube 2024 Active 2024 87476 59237 8 By Mouth False Milk of Magnesia 400 mg/5 mL oral suspension [Magnesium hydroxide] PRN 30ml By Mouth Daily as needed for constipation one time daily if no BM, on day 4 of no BM (PRN refer to instructions) For Constipation 30 mL 2024 Active 2024 91106 36424 6 Daily as needed By Mouth False Januvia 100 mg tablet TAKE ONE (1) TABLET BY MOUTH ONCE DAILY 2024 Active 2024 53775 87674 1 VITAL SIGNS Date Time Diastolic blood pressure Systolic blood pressure Body height Body weight Temperature SpO2 Blood Sugar Pulse Respirations 50059 429 87121 4 59.00 mm[Hg] - Sitting 106.00 mm[Hg] - Sitting 98.40 Tympanic 68.00/ min 18.00/min 58292 429 61432 0 155.60 NI 35211 429 18695 0 66 NI 20718 429 21115 4 59.00 mm[Hg] - Sitting 106.00 mm[Hg] - Sitting 98.40 Tympanic 94.00 % 68.00/ min 18.00/min 57942 429 29633 8 59.00 mm[Hg] - Sitting 106.00 mm[Hg] - Sitting 98.40 Tympanic 68.00/ min 18.00/min 31057 429 95061 9 267.00 mg/dL 52700 429 51881 4 267.00 mg/dL 51120 430 09093 8 196.00 mg/dL
--- OUTSIDE RECORDS SUMMARY | 2024-07-15 20:54 | External Medical Summary | Continuity Of Care Document ---
Author Name Unknown Address [address] [address] Organization [facility] () Care Team Providers Care Floor Plan Adjuster Name Role Phone DO Acuña Amy Primary Care Provider [phone] Allergies Allergy Reaction Start Date End Date [...] Day 3 0.1 mL 07/06 Active 2024 56231 26990 0 1 time Intrad ermal False Tubersol 5 tub. unit/0.1 mL intradermal injection solution [Tuberculin PPD] 0.1mL Intradermal 1 time For PPD 2nd Step Give 2nd Step PPD Day 1 and Read results Day 3 (schedule 7 days after 1st READ) 0.1mL 07/15 Active 2024 20442 73701 0 1 time Intrad ermal False Doxycycline hyclate 100 mg tablet [generic] 100 mg By Mouth Twice daily For Pneumonitis 100 mg 07/08 Active 2024 45607 16104 1 Twice daily By Mouth False Tamiflu 75 mg capsule 75 mg By Mouth Twice daily For Influenza 75 mg 07/07 Active 2024 47016 01912 7 Twice daily By Mouth False Aspirin 81 mg tablet,dominick yed release [generic] 81 mg By Mouth O nce daily Do not crush, chew, or break For CAD 81 mg 2024 Active 2024 95451 30829 9 Once daily By Mouth False Losartan 50 mg tablet [generic] 50 mg By Mouth Once daily For HTN 50 mg 2024 Active 2024 41034 41181 9 Once daily By Mouth False Carbidopa 25 mg-levodopa 100 mg tablet [generic] 1 tab By Mouth 3 times a day For Parkinson's disease 1 tab 2024 Active 2024 52664 19518 1 3 times a day By Mouth False Celebrex 100 mg capsule 100 mg By Mouth Twice daily For Back pain 100 mg 2024 Active 2024 17728 40898 1 Twice daily By Mouth False Cyclobenzap rine 5 mg tablet [generic] 5 mg By Mouth 3 times a day As Needed For Back pain 5 mg 2024 Active 2024 33109 85869 1 3 times a day By Mouth False Donepezil 10 mg tablet [generic] 10 mg By Mouth Once daily For Dementia 10 mg 2024 Active 2024 27011 95382 3 Once daily By Mouth False Duloxetine 30 mg capsule,del ayed release [generic] 30 mg By Mouth Once daily For Depression 30 mg 2024 Active 2024 90598 26708 3 Once daily By Mouth False Jardiance 25 mg tablet 25 mg By Mouth Once daily For Diabetes 25 mg 2024 Active 2024 50126 73332 7 Once daily By Mouth False Entacapone 200 mg tablet [generic] 200 mg By Mouth 3 times a day For Parkinson's Disease 200 mg 2024 Active 2024 91213 19014 1 3 times a day By Mouth False Finasteride 5 mg tablet [generic] 5 mg By Mouth Once daily For BPH 5 mg 2024 Active 2024 55406 01651 1 Once daily By Mouth False Gemfibrozil 600 mg tablet [generic] 600 mg By Mouth Twice daily For Hyperlipidemi a 600 mg 2024 Active 2024 20413 50961 1 Twice daily By Mouth False Insulin [...] one-time order For Diabetes 2024 Active 2024 76729 40809 5 4 times a day Subcut aneous False Lactulose 10 gram/15 mL oral solution [generic] 15 ml By Mouth Twice daily For Constipation 15 ml 2024 Active 2024 34635 79572 8 Twice daily By Mouth False Memantine 10 mg tablet [generic] 10 mg By Mouth Twice daily For Dementia 10 mg 2024 Active 2024 96051 48046 0 Twice daily By Mouth False Metformin 1,000 mg tablet [generic] 1000 mg By Mouth Twice daily For Diabetes 1000 mg 2024 Active 2024 30273 88169 0 Twice daily By Mouth False Myrbetriq 25 mg tablet,exte nded release 25 mg By Mouth Once daily For OAB 25 mg 2024 Active 2024 07183 13580 7 Once daily By Mouth False Sertraline 25 mg tablet [generic] 25 mg By Mouth Once daily For Depression 25 mg 2024 Active 2024 08434 04838 5 Once daily By Mouth False [place]-3 fatty acids 1,000 mg capsule [generic] 1 capsule By Mouth Twice daily For Supplement 1 capsule 2024 Active 2024 20835 52856 7 Twice daily By Mouth False Pantoprazol e 40 mg tablet,dominick yed release [generic] 40 mg By Mouth Once daily For GERD 40 mg 2024 Active 2024 02105 79757 0 Once daily By Mouth False Pramipexole 0.25 mg tablet [generic] 0.25 mg By Mouth Twice daily For Parkinson's disease 0.25 mg 2024 Active 2024 15325 44948 0 Twice daily By Mouth False Pregabalin 75 mg capsule [generic] 75 mg By Mouth Twice daily For Neuropathy 75 mg 2024 Active 2024 50933 21212 9 Twice daily By Mouth False Rasagiline 1 mg tablet [generic] 1 mg By Mouth Once daily For Parkinson's disease 1 mg 2024 Active 2024 60642 64803 0 Once daily By Mouth False Sitagliptin 100 mg tablet [generic] 100 mg By Mouth Once daily For Diabetes 100 mg 2024 Active 2024 76295 95628 3 Once daily By Mouth False Tylenol 325 mg tablet 2 tabs By Mouth Every 4 hours as needed For Pain DO NOT EXCEED 3000 MG APAP/24 Hours 2 tabs 2024 Active 2024 38624 82326 0 Every 4 hours as needed By Mouth False Tylenol 325 mg tablet 2 tabs By Mouth Every 4 hours as needed For Fever >100 DO NOT EXCEED 3000 MG APAP/24 Hours 2 tabs 2024 Active 2024 73335 39849 0 Every 4 hours as needed By Mouth False Dulcolax (bisacodyl) 10 mg rectal suppository One Suppository per rectum PRN if Milk of Magnisia ineffective. Give on day 5 of no BM 1 sup 2024 Active 2024 13889 98477 1 Daily as needed Rectal False Fleet Enema 19 gram-7 gram/118 mL Administer per rectum PRN one time if dulcolax suppository not effective. Give on day 6 of no BM 1 2024 Active 2024 45476 13835 6 Daily as needed Rectal False Dextrose 50 % in water (D50W) intravenous solution [generic] Dextrose 50% nilda 20-50 ml (slow push) Intravenous if Glucagon not effective after 15 minutes. CALL 911 for ED Evaluation. 50% nilda 2024 Active 2024 14835 11956 9 Intrav enous False Glucagon (HCl) Emergency Kit 1 mg solution for injection Administer Glucagon 1 mg Intramuscular if 15 minutes after GLucose Gel is administered Glucose remains less than 70 1 mg 2024 Active 2024 45350 30805 2 Intram uscula r False Glucose Gel 40 % oral gel [Dextrose] PRN If resident is unable to swallow (with or without symptoms) and Glucose results less than 70 give GLucose 40% Gel 1 tube orally - Recheck Glucose 15 minutes after administratio n. 1 tube 2024 Active 2024 28969 90817 8 By Mouth False Milk of Magnesia 400 mg/5 mL oral suspension [Magnesium hydroxide] PRN 30ml By Mouth Daily as needed for constipation one time daily if no BM, on day 4 of no BM (PRN refer to instructions) For Constipation 30 mL 2024 Active 2024 62518 74994 6 Daily as needed By Mouth False VITAL SIGNS Date Time Diastolic blood pressure Systolic blood pressure Body height Body weight Temperature SpO2 Blood Sugar Pulse Respirations 57112 429 64485 0 155.60 NI 01762 429 93646 0 66 NI 31261 429 89043 4 59.00 mm[Hg] - Sitting 106.00 mm[Hg] - Sitting 98.40 Tympanic 94.00 % 68.00/ min 18.00/min 96296 429 49180 8 59.00 mm[Hg] - Sitting 106.00 mm[Hg] - Sitting 98.40 Tympanic 68.00/ min 18.00/min
--- OUTSIDE RECORDS SUMMARY | 2024-07-15 20:54 | External Medical Summary | Continuity Of Care Document ---
Author Name Unknown Address [address] [address] [facility] () Care Team Providers Care Sales Person Name Role Phone DO Acuña Amy Primary Care Provider [phone] Allergies Allergy Reaction Start Date End Date [...] Day 3 0.1 mL 07/06 Active 2024 98846 91431 0 1 time Intrad ermal False Tubersol 5 tub. unit/0.1 mL intradermal injection solution [Tuberculin PPD] 0.1mL Intradermal 1 time For PPD 2nd Step Give 2nd Step PPD Day 1 and Read results Day 3 (schedule 7 days after 1st READ) 0.1mL 07/15 Active 2024 20485 16982 0 1 time Intrad ermal False Doxycycline hyclate 100 mg tablet [generic] 100 mg By Mouth Twice daily For Pneumonitis 100 mg 07/08 Active 2024 41603 95985 1 Twice daily By Mouth False Tamiflu 75 mg capsule 75 mg By Mouth Twice daily For Influenza 75 mg 07/07 Active 2024 77248 43592 7 Twice daily By Mouth False Aspirin 81 mg tablet,dominick yed release [generic] 81 mg By Mouth O nce daily Do not crush, chew, or break For CAD 81 mg 2024 Active 2024 99213 43613 9 Once daily By Mouth False Losartan 50 mg tablet [generic] 50 mg By Mouth Once daily For HTN 50 mg 2024 Active 2024 86786 23403 9 Once daily By Mouth False Carbidopa 25 mg-levodopa 100 mg tablet [generic] 1 tab By Mouth 3 times a day For Parkinson's disease 1 tab 2024 Active 2024 45070 06057 1 3 times a day By Mouth False Celebrex 100 mg capsule 100 mg By Mouth Twice daily For Back pain 100 mg 2024 Active 2024 36443 94024 1 Twice daily By Mouth False Cyclobenzap rine 5 mg tablet [generic] 5 mg By Mouth 3 times a day As Needed For Back pain 5 mg 2024 Active 2024 14655 62329 1 3 times a day By Mouth False Donepezil 10 mg tablet [generic] 10 mg By Mouth Once daily For Dementia 10 mg 2024 Active 2024 30446 83551 3 Once daily By Mouth False Duloxetine 30 mg capsule,del ayed release [generic] 30 mg By Mouth Once daily For Depression 30 mg 2024 Active 2024 11943 11263 3 Once daily By Mouth False Jardiance 25 mg tablet 25 mg By Mouth Once daily For Diabetes 25 mg 2024 Active 2024 82607 66126 7 Once daily By Mouth False Entacapone 200 mg tablet [generic] 200 mg By Mouth 3 times a day For Parkinson's Disease 200 mg 2024 Active 2024 96639 48887 1 3 times a day By Mouth False Finasteride 5 mg tablet [generic] 5 mg By Mouth Once daily For BPH 5 mg 2024 Active 2024 91948 89676 1 Once daily By Mouth False Gemfibrozil 600 mg tablet [generic] 600 mg By Mouth Twice daily For Hyperlipidemi a 600 mg 2024 Active 2024 84585 61770 1 Twice daily By Mouth False Insulin [...] one-time order For Diabetes 2024 Active 2024 38305 91767 5 4 times a day Subcut aneous False Lactulose 10 gram/15 mL oral solution [generic] 15 ml By Mouth Twice daily For Constipation 15 ml 2024 Active 2024 68737 48558 8 Twice daily By Mouth False Memantine 10 mg tablet [generic] 10 mg By Mouth Twice daily For Dementia 10 mg 2024 Active 2024 31246 37729 0 Twice daily By Mouth False Metformin 1,000 mg tablet [generic] 1000 mg By Mouth Twice daily For Diabetes 1000 mg 2024 Active 2024 47505 97002 0 Twice daily By Mouth False Myrbetriq 25 mg tablet,exte nded release 25 mg By Mouth Once daily For OAB 25 mg 2024 Active 2024 11549 23750 7 Once daily By Mouth False Sertraline 25 mg tablet [generic] 25 mg By Mouth Once daily For Depression 25 mg 2024 Active 2024 92668 04540 5 Once daily By Mouth False [place]-3 fatty acids 1,000 mg capsule [generic] 1 capsule By Mouth Twice daily For Supplement 1 capsule 2024 Active 2024 26679 43189 7 Twice daily By Mouth False Pantoprazol e 40 mg tablet,dominick yed release [generic] 40 mg By Mouth Once daily For GERD 40 mg 2024 Active 2024 65594 93005 0 Once daily By Mouth False Pramipexole 0.25 mg tablet [generic] 0.25 mg By Mouth Twice daily For Parkinson's disease 0.25 mg 2024 Active 2024 02745 34705 0 Twice daily By Mouth False Pregabalin 75 mg capsule [generic] 75 mg By Mouth Twice daily For Neuropathy 75 mg 2024 Active 2024 76500 19167 9 Twice daily By Mouth False Rasagiline 1 mg tablet [generic] 1 mg By Mouth Once daily For Parkinson's disease 1 mg 2024 Active 2024 69772 63371 0 Once daily By Mouth False Sitagliptin 100 mg tablet [generic] 100 mg By Mouth Once daily For Diabetes 100 mg 2024 Active 2024 00745 82509 3 Once daily By Mouth False Tylenol 325 mg tablet 2 tabs By Mouth Every 4 hours as needed For Pain DO NOT EXCEED 3000 MG APAP/24 Hours 2 tabs 2024 Active 2024 72329 23809 0 Every 4 hours as needed By Mouth False Tylenol 325 mg tablet 2 tabs By Mouth Every 4 hours as needed For Fever >100 DO NOT EXCEED 3000 MG APAP/24 Hours 2 tabs 2024 Active 2024 55036 79679 0 Every 4 hours as needed By Mouth False Dulcolax (bisacodyl) 10 mg rectal suppository One Suppository per rectum PRN if Milk of Magnisia ineffective. Give on day 5 of no BM 1 sup 2024 Active 2024 72657 57871 1 Daily as needed Rectal False Fleet Enema 19 gram-7 gram/118 mL Administer per rectum PRN one time if dulcolax suppository not effective. Give on day 6 of no BM 1 2024 Active 2024 80358 57361 6 Daily as needed Rectal False Dextrose 50 % in water (D50W) intravenous solution [generic] Dextrose 50% nilda 20-50 ml (slow push) Intravenous if Glucagon not effective after 15 minutes. CALL 911 for ED Evaluation. 50% nilda 2024 Active 2024 63085 92197 9 Intrav enous False Glucagon (HCl) Emergency Kit 1 mg solution for injection Administer Glucagon 1 mg Intramuscular if 15 minutes after GLucose Gel is administered Glucose remains less than 70 1 mg 2024 Active 2024 28340 31964 2 Intram uscula r False Glucose Gel 40 % oral gel [Dextrose] PRN If resident is unable to swallow (with or without symptoms) and Glucose results less than 70 give GLucose 40% Gel 1 tube orally - Recheck Glucose 15 minutes after administratio n. 1 tube 2024 Active 2024 74399 51108 8 By Mouth False Milk of Magnesia 400 mg/5 mL oral suspension [Magnesium hydroxide] PRN 30ml By Mouth Daily as needed for constipation one time daily if no BM, on day 4 of no BM (PRN refer to instructions) For Constipation 30 mL 2024 Active 2024 56390 74896 6 Daily as needed By Mouth False Januvia 100 mg tablet TAKE ONE (1) TABLET BY MOUTH ONCE DAILY 2024 Active 2024 26994 08123 1 VITAL SIGNS Date Time Diastolic blood pressure Systolic blood pressure Body height Body weight Temperature SpO2 Blood Sugar Pulse Respirations 55373 429 22184 4 59.00 mm[Hg] - Sitting 106.00 mm[Hg] - Sitting 98.40 Tympanic 68.00/ min 18.00/min 41086 429 69167 0 155.60 NI 56786 429 63222 0 66 NI 84213 429 26364 4 59.00 mm[Hg] - Sitting 106.00 mm[Hg] - Sitting 98.40 Tympanic 94.00 % 68.00/ min 18.00/min 60183 429 49323 8 59.00 mm[Hg] - Sitting 106.00 mm[Hg] - Sitting 98.40 Tympanic 68.00/ min 18.00/min 96833 429 64716 9 267.00 mg/dL 28224 429 41816 4 267.00 mg/dL 22260 430 70274 8 196.00 mg/dL 26773 430 28769 0 196.00 mg/dL
[2024-07-15] MEDS ORDERED: DEXTROSE 50% 50 ML SYRINGE IV PRN (21:20)
[2024-07-15] MEDS ORDERED: GLUCAGON FOR INJ 1 MG VIAL SQ PRN (21:20)
[2024-07-15] MEDS ORDERED: GLUCOSE 40% GEL 15 GM TUBE PO PRN (21:20)
[2024-07-15] MEDS ORDERED: CARBOHYDRATES FOR HYPOGLYCEMIA PO PRN (21:20)
[2024-07-15] MEDS ORDERED: GLUCOSE 10 TAB/TUBE PO PRN (21:20)
[2024-07-15] MEDS ORDERED: bisacodyL 10 MG SUPP PR PRN (21:25)
--- NOTE | 2024-07-15 21:26 | Critical Care Consultation ---
Date of Consultation July 15, 2024 Assessment & Plan (1) Shock: (2) Abdominal pain: (3) Metabolic acidosis: (4) Hyperglycemia: (5) Lactic acidosis: (6) Stage 2 acute kidney injury: (7) Fecal impaction: Plan Reason Critically Ill: 78 YOM accepted as a transfer from [facility] for shock requiring vasopressor support. Patient arrives in no acute distress and hemodynamics improved while on the Levophed. Will continue with resuscitation, evaluate for infective sources, check blood cultures, urine ketones, and provide suppository and softeners for impaction. Neuro - No acute needs, history of Parkinson's disease CAM ICU: NEGATIVE - There was some question of seizure like activity on arrival to OSH, however patient return to baseline and is possible that may have been related to post syncope - Head CT at OSH negative for any acute intracranial process- follow n eurological exams - Continue with home - Memantine, Carbi/levadopa, Aricept, and Pramipexole - Anxiety- continue with cymbalta- +/- recently started buspar Cardiac - Shock - unspecified, Hx: HTN, HLD - Shock- multifactorial at this time, however initial impression is hypovolemia and may have component of vagal or orthostasis - Check BMP, Lactate and lipase now - Continue with volume support- 1L LR now based on POCUS and then 125ml per hour - Continue with Levophed for MAP support - Can't exclude sepsis- continue with empiric Zosyn for poss abdominal source, hold Vancomycin - Hold home antihypertensives - Hypovolemia possible in setting of euglycemic DKA with recent start of SITAgliptin in combination with Metformin- eval UA Respiratory - no history of pulmonary problems but is on [place] - Continue - hypoxia with atelectasis is likely at this time related to abd pain as well as hyperventilation leading to hypoxia- continue supportive care GI - Abd pain, fecal impaction - OSH images unable to be uploaded at this time as well as be pushed for review- however reports were reviewed from prior interpretations of imaging at OSH. - Likely related to impaction - which may be associated with sitagliptin and metformin combination as well - Possible pancreatitis with Gliptin- he was reported with out CT findings of pancreatitis on his scan, he is not tender over epigastrum, and ate breakfast and lunch without increase pain- check lipase- at this time less likely. - senna, IVF, and biscaodyl suppository now - Neomycin given at OSH- monitor for any change in abd pain as he is with impaction RENAL/LYTES - LUDY II, Metabolic and lactic acidosis - Likely pre-renal - Continue supportive care as above - ICU electrolyte protocol - Hold NSAIDS - Metabolic acidosis- likely associated with Metformin associated lactic acidosis as well- continue with volume resuscitation as above- see ENDO below for possibility of EDKA - NO acute needs - Continue berger while on vasopressors - hold proscar ENDO - DMII - Hold oral agents- - Can't exclude euglycemic DKA at this time- UA, lactate and VBG - He was previously with PH 7.2, Bicarb 15, and elevated glucose 249- repeat labs with PH 7.29, HCO3 20- see below follow q4h PH and BMP until am - If remains acidotic and with low bicarb- will place on D5LR and insulin infusion - if improving with fluids will continue and add basal bolus coverage for tonight - DOn't have ability at this institution for serum ketones or beta hydroxy butyrate HEME - NO acute needs ID - Technically meets SIRS with RR, Hypotension, and leukocytosis, - empiric zosyn for now - MRSA negative - Will add PCT - blood cultures obtained on arrival to [facility] LINES/IV ACCESS - PIVMichaeley Continue use of these lines DVT PROPHYLAXIS - SCDS, Heparin 5000 units subq DISPO: ICU while on vasopressors I have personally spent 50 minutes of critical care time in the direct management of this patient. This is a life/limb threatening event. This includes time spent evaluating patient, direct bedside care, chart review, placing orders, interpretation of diagnostic studies, discussion with consultants, patient, and family members, as well as other required patient management activities. This time is exclusive of all separately billable procedures, and separate from and in addition to any other critical care service time. Thank you for allowing us to participate in the care of this patient. Please refer to my attending physician's documentation for any further recommendations. History of Present Illness Reason for Consultation: shock unspecified Requesting Physician: Debra Rosenthal DO Attending Physician: Dayday Valentin DO History of Present Illness 78 YOM with medical history of: Parkinson's disease, bilateral carotid artery stenosis, Partial right radial neck resection, DMII. Patient was a transfer from [facility] where he was evaluated for syncopal eppisode at home that was associated with refractory hypotension, abdominal pain and required initiation of Levophed for hemodynamic support, which he responded to. Notes review from the ER visit noted he was given 3 Liters of crystalloid infusion and vasopressors- lactate decreased from 6.3-4.5, CT head was negative for acute process, CT abd/pelvis with IV contrast that was noted for fecal impa ction no other acute process or note of an obstructive pattern and a CTA of the chest that was reported negative for PE. He was also noted to have PH 7.27, Bicarb of 15, AG of 19, BG of 290. He was also noted to have nausea and vomiting while getting his CT scans completed at [facility] and patient reports this as a dark brown thick like gravy emesis. He was given Neomycin, Vancomycin, Flagyl. Patient arrives to ICU awake oriented, tachypneic, complaining of lower quad abdominal pain. He is with adequate MAPS on Levophed. Patient pain is noted in lower bilateral quadrants of his abdomen and he is distended but soft. He reports having increase in belching today, but also reports that he is able to pass gas, but can't remember his last bowel movement. He reports the pain as sharp and stabbing, but intermittent He reports his blood glucose levels normally being in the low 200s. Bedside POCUS performed noting bowel gas obscuring subxiphoid views, however, parasternal noted hyperdynamic LV, and good contractility of all younger without obvious decompensation. Patient reports he is breathing heavy because of his abdomen pain and anxiety. KUB will be obtained on arrival. Repeat labs to include VBG, UA for ketones, CMP, and lipase. BLood cultures will also be obtained. 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 Social History Smoking Status: Never smoker Hx Alcohol Use: No Hx Substance Use: No Preferred Language: Yakut Communication Ability: Effective Slitter Operator Required: No Beliefs That Will Affect Care: None Current Living Situation: Rehab Current Living Situation Comment: [facility] Feels Safe at Home: Yes Safety Concerns: Feels Safe At This Time Assistive Devices: Cane, Walker and Wheelchair Review of Systems Review of Systems: REVIEW OF SYSTEMS: Constitutional: No fever, sweats or chills Eyes: No diplopia, no worsening or blurred vision ENT: normal hearing, no trouble swallowing Respiratory: (+) dyspnea, No cough, sputum, Cardiovascular: No chest pain, tightness or palpitations Abdomen: (+) pain, nausea, vomiting, constipation Musculoskeletal: (+) weakness with worsening parkinson's, No joint pain, calf pain, swelling Neurologic: (+) balance walks with walker, No weakness, numbness/tingling, or balance problems Psychiatric: (+) anxiety Skin: No rash or itch Physical Exam Physical Exam: PHYSICAL EXAM: General: awake, alert, uncomfortable appearing Head: Normocephalic, atraumatic ENT: PERRLA, EOMI, no pharyngeal exudate, mucous membrane dry Neuro: AAO x 3, speech slow to respond but appropriate, strength intact bilaterally 5/5, sensation intact and equal all extremities and dermatomes, no pronator drift Chest: equal rise and fall of the chest, no accessory muscle use, Clear to auscultation, on room air, Cardiac: Regular rate and rhythm, telemetry reviewed- NSR, skin warm dry, cap refill <3 seconds, peripheral pulses +2 no JVD, Grade III systolic murmur best heard at LSB with radiation to carotids, no edema GI: NABS x 4 quadrants, distended soft, tender lower quadrants bilaterally, no rebound or guarding, : Berger to gravity draining light yellow urine Extremities: Normal inspection, no peripheral edema or erythema, calfs nontender to palpation Psych: anxious appearing Skin: no rash or erythema Results & Data Results & Data Laboratory Results Abnormal lab results 07/15/24 Range/Units 21:12 POC Glucose 241 H (70-99) mg/dl ECG Additional Comments: NSR, No ST elevations or dynamic changes per my interpretation Coding Level of Care Code 04945 CRITICAL CARE 1ST 30-74M Diagnoses Shock R57.9 Abdominal pain R10.9 Metabolic acidosis E87.20 Hyperglycemia R73.9 Lactic acidosis E87.20 Stage 2 acute kidney injury N17.9 Fecal impaction K56.41
--- NOTE | 2024-07-15 21:36 | History & Physical Report ---
Date of Service July 15, 2024 Assessment & Plan (1) Abdominal pain: (2) Fecal impaction: (3) HTN (hypertension): (4) GERD (gastroesophageal reflux disease): (5) DMII (diabetes mellitus, type 2): (6) Parkinsons disease: (7) LUDY (acute kidney injury): Plan 78-year-old male with history of diabetes, hypertension, Parkinson's disease presenting from outside facility after presenting with abdominal pain, nausea, vomiting, fecal impaction and ongoing hypotension. Patient was administered 3 L of crystalloid with persistent low blood pressures/shock therefore started on Levophed infusion. #neurologicalpatient with history of Parkinson's disease for which she takes carbidopa levodopa. Also with underlying dementia and anxiety. patient is oriented x 3, able to answer questions appropriately. Neuro exam is grossly nonfocal Continue carbidopa/levodopa at home dose Continue entacapone Continue Aricept 20 mg p.o. every morning and memantine 10 mg p.o. twice daily for dementia Continue BuSpar 5 mg p.o. daily Continue Cymbalta 30 mg p.o. every morning Continue Lyrica 75 mg p.o. twice daily Continue pramipexole #Cardiovascularpatient presenting with shock, blood pressure unresponsive to 2 L crystalloid fluid at outside facility. He has since been started on Levophed. Presently with improved blood pressures on 0.07 mcg/kg/min of Levophed Continue IV fluids. Will write for additional 1 L bolus of LR followed by LR at 125 mL/h x 1 L Follow cultures Check random cortisol Wean Levophed as tolerated #Pulmonarypatient with no underlying lung disease. Presently saturating well on 6 L OxiMax. CTA of the chest performed at outside facility with no PE present Continue supportive oxygen as needed #Gastrointestinalpatient with fecal impaction, ongoing constipation Hydration electrolyte repletion Dulcolax suppository now and daily as needed Senna every morning Continue Protonix 40 mg p.o. every morning #Genitourinarypatient with elevation of creatinine at outside facility. Baseline = 0.9. Labs revealed creatinine of 1.6 Continue hydration Avoid nephrotoxic agents Renal dosing were needed Repeat chemistry in the morning Cross in place, monitor output check UA #Infectious diseasepatient afebrile Zosyn empirically #Hematologicalno active bleed Repeat CBC in the morning #Endocrine patient recently started on sitagliptin patient's diabetesICU protocol for hypoglycemia management Will hold metformin, will hold sitagliptin Admission and Anticipated Discharge Date Admission Date: July 15, 2024 History of Present Illness Primary Care Provider: NO PCP Karsten Pereira is a 78-year-old male with history of diabetes, Parkinson's disease presenting from [facility] after presenting with an episode of unresponsiveness. Patient was at home when he got up to try to have a bowel movement and became unresponsive. He became diaphoretic and hypotensive. EMS was called. Upon arrival to the emergency room patient noted to be pale and vomiting. Blood pressure in the 80s. Patient was administered 2 L of normal sa line with no improvement in blood pressure therefore Levophed drip was initiated. He was transferred to [facility] ICU for continued workup and management. Patient reportedly vomited x 2, non-bloody. No diarrhea. He has been constipated for "a while", uncertain when his last BM was. Patient recently started on sitagliptin Patient evaluated at bedside. He is reporting abdominal pain. No additional complaints at this time. Specifically denies chest pain, SOB. Workup at outside hospital: Lactate = 6.3 --> 4.5 Creatinine = 1.6 (baseline = 0.9) Bicarbonate = 15 Anion gap = 19 Glucose = 290 Sodium = 129 VBG with pH = 7.27, normal CO2 Patient had a UA that was negative for infection CT of abdomen and pelvis with contrast with fecal impaction but no other acute findings, probable cirrhosis CT PE study negative for acute findings CT of the head with no acute bleed Treatment at outside hospital: Zofran 2 L normal saline 1 L LR Levophed drip initiated Neomycin Cefepime Flagyl Allergies Allergy/AdvReac Type Severity Reaction Status Date / Time [id number] Reductase AdvReac Muscle Pain Verified 07/15/24 21:59 Inhibitor Past Med/Surg History Problem List (Updated 07/16/24 @ 00:19 by Debra Rosenthal DO) LUDY (acute kidney injury) Stage 2 acute kidney injury Lactic acidosis Hyperglycemia Metabolic acidosis Shock Fecal impaction Abdominal pain Medical History Parkinsons disease Oral cancer Vascular dementia HTN (hypertension) GERD (gastroesophageal reflux disease) DMII (diabetes mellitus, type 2) Carotid artery stenosis Surgical History 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 Social History Smoking Status: Never smoker Hx Alcohol Use: No Hx Substance Use: No Preferred Language: Tajik Communication Ability: Effective Credit Control Officer Required: No Beliefs That Will Affect Care: None Current Living Situation: Rehab Current Living Situation Comment: [facility] Feels Safe at Home: Yes Safety Concerns: Feels Safe At This Time Assistive Devices: Glasses and Wheelchair Review of Systems Review of Systems: All systems reviewed & are unremarkable except as noted in HPI & below Physical Exam Physical Exam: General: patient resting comfortably, NAD, non-toxic in appearance, slow to answer questions but oriented x 3 Skin: warm, dry, intact, no rashes or lesions HEENT: NC/AT, PERRL, EOMI, anicteric sclera, conjunctiva without injection, external ear normal to inspection and nontender, nares patent, dry mucus membranes, dentition intact, no oropharyngeal lesions, neck supple, trachea midline, no LAD, no thyromegaly, no JVD Heart: +S1/S2, regular, 3/6 LORA at LSB Lungs: equal air entry bilaterally, no rales/rhonchi/wheezes, patient tac hypneic, adequate oxygenation on 5L NC Abd: +BS, mildly distended, diffusely tender most in lower abdomen without rebound/guarding Ext: warm, 2+ pulses in UE/LE bilaterally, no clubbing/cyanosis or edema Neuro: nonfocal, patient AA&O x 4, no facial droop, moving all extremities on command with equal strength 5/5 Results & Data Results & Data Vital Signs (Past 12 Hours) Laboratory Results POC Glucose 241 mg/dl (70-99) H 07/15/24 21:12 Laboratory Results Laboratory Results WBC 25.32 K/ul (4.8-10.8) H 07/15/24 21:43 RBC 4.91 M/uL (4.70-6.10) 07/15/24 21:43 Hgb 12.3 g/dl (14.0-18.0) L 07/15/24 21:43 Hct 39.9 % (42.0-52.0) L 07/15/24 21:43 MCV 81.3 fL (80.0-100.0) 07/15/24 21:43 MCH 25.1 pg (25.0-34.0) 07/15/24 21: MCHC 30.8 g/dL (32.0-36.0) L 07/15/24 21:43 RDW Std Deviation 51.9 fL (36.4-46.3) H 07/15/24 21: RDW Coeff of La 17.5 % (11.5-14.5) H 07/15/24 21:43 Plt Count 491 K/uL (130-400) H 07/15/24 21:43 MPV 9.4 fL (9.4-12.4) 07/15/24 21:43 Immature Gran % (Auto) 0.7 % 07/15/24 21: Neut % (Auto) 85.5 % 07/15/24 21: Lymph % (Auto) 9.4 % 07/15/24 21:43 [place] % (Auto) 4.2 % 07/15/24 21:43 Eos % (Auto) 0.0 % 07/15/24:43 Baso % (Auto) 0.2 % 07/15/24: Neut # (Auto) 21.62 K/uL (1.40-6.50) H 07/15/24 21:43 Lymph # (Auto) 2.39 K/uL (1.20-3.40) 07/15/24 21:43 [place] # (Auto) 1.07 K/uL (0.11-0.59) H 07/15/24 21:43 Eos # (Auto) 0.01 K/uL (0.00-0.50) 07/15/24 21: Baso # (Auto) 0.05 K/uL (0.00-0.20) 07/15/24: Immature Gran # (Auto) 0.18 K/uL (0.01-0.20) 07/15/24 21:43 Echinocytes 1+ 07/15/24: VBG pH 7.29 (7.36-7.41) L 07/15/24: VBG pCO2 42 mmHg (38-50) 07/15/24 21:43 VBG pO2 < 20 mmHg 07/15/24 21:43 VBG HCO3 20 mmol/L 07/15/24 21:43 VBG O2 Saturation < 60.0 % 07/15/24 21:43 VBG Base Excess -6.1 mEq/L 07/15/24 21:43 Sodium 134 mmol/L (136-145) L 07/15/24 21:43 Potassium 4.7 mmol/L (3.5-5.1) 07/15/24 21:43 Chloride 100 mmol/L (98-107) 07/15/24 21:43 Carbon Dioxide 20 mmol/L (21-32) L 07/15/24 21:43 Anion Gap 14 (3-11) H 07/15/24 21:43 BUN 24 mg/dl (6-23) H 07/15/24 21:43 Creatinine 0.92 mg/dl (0.6-1.4) 07/15/24 21:43 Est Cr Clr Drug Dosing 61.6 ml/min 07/15/24 21:43 eGFR 86.21 07/15/24 21:43 BUN/Creatinine Ratio 26.1 (10-20) H 07/15/24 21:43 Glucose 159 mg/dl (70-99(Fasting)) H 07/15/24 21:43 POC Glucose 241 mg/dl (70-99) H 07/15/24 21:12 Lactate 3.2 mmol/L (0.4-2.0) H* 07/15/24 21:43 Calcium 9.1 mg/dl (8.6-10.3) 07/15/24 21:43 Phosphorus 3.2 mg/dl (2.5-4.9) 07/15/24 21:43 Magnesium 1.7 mg/dl (1.7-2.4) 07/15/24 21:43 Total Bilirubin 0.5 mg/dl (0.2-1.0) 07/15/24 21:43 Direct Bilirubin 0.1 mg/dl (0-0.2) 07/15/24 21:43 AST 14 U/L (13-39) 07/15/24 21:43 ALT 16 U/L (7-52) 07/15/24 21:43 Alkaline Phosphatase 52 U/L (34-104) 07/15/24 21:43 Total Protein 7.6 gm/dl (6.0-8.3) 07/15/24 21:43 Albumin 4.2 gm/dl (3.4-5.0) 07/15/24 21:43 Lipase 14 U/L (11-82) 07/15/24 21:43 Procalcitonin 0.05 ng/ml (0-0.5) 07/15/24 21:53 Random Cortisol 32.50 mcg/dl 07/15/24 21:43 Nasal Screen MRSA (PCR) Negative (Negative) 07/15/24 19:06 PG Care Time/CCT Total # of Minutes Spent Total Time Spent with Patient: Total time spent is greater than 50% in coordination of care (as documented) at patient's floor/unit and/or counseling patient: Coding Level of Care Code 28608 INT INP/OBS CARE 3/75MIN Diagnoses Abdominal pain R10.9 Fecal impaction K56.41 HTN (hypertension) I10 GERD (gastroesophageal reflux disease) K21.9 DMII (diabetes mellitus, type 2) E11.9 Parkinsons disease G20.A1 LUDY (acute kidney injury) N17.9
[2024-07-15] MEDS: LACTATED RINGER'S 1,000 ML IV ONE (21:45)
[2024-07-15 22:01] LABS: Base Excess VBG -6.1 mEq/L; HCO3 VBG 20 mmol/L; Oxygen Saturation VBG < 60.0 %; PCO2 VBG 42 mmHg (38-50); PO2 VBG < 20 mmHg; pH VBG 7.29 (7.36-7.41)
[2024-07-15 22:05] LABS: Hematocrit (blood only) 39.9 % (42.0-52.0); Hemoglobin 12.3 g/dl (14.0-18.0); Mean Corpuscular Hemoglobin 25.1 pg (25.0-34.0); Mean Corpuscular Hgb Conc 30.8 g/dL (32.0-36.0); Mean Corpuscular Volume 81.3 fL (80.0-100.0); Mean Platelet Volume 9.4 fL (9.4-12.4); Platelet Count 491 K/uL (130-400); RDW Coefficient of Variation 17.5 % (11.5-14.5); RDW Standard Deviation 51.9 fL (36.4-46.3); Red Blood Count 4.91 M/uL (4.70-6.10); White Blood Count 25.32 K/ul (4.8-10.8)
[2024-07-15] MEDS: Patient's ALLERGY Info needs ENTERED STA (22:28)
[2024-07-15] MEDS: bisacodyL 10 MG SUPP PR STA (22:34)
[2024-07-15] MEDS: LACTATED RINGER'S 1,000 ML IV SCH (22:46)
[2024-07-15 22:53] LABS: Basophils # (auto) 0.05 K/uL (0.00-0.20); Basophils % (auto) 0.2 %; Echinocytes 1+; Eosinophils # (auto) 0.01 K/uL (0.00-0.50); Immature Granulocytes # (auto) 0.18 K/uL (0.01-0.20); Immature Granulocytes % (auto) 0.7 %; Lymphocytes # (auto) 2.39 K/uL (1.20-3.40); Lymphocytes % (auto) 9.4 %; Monocytes # (auto) 1.07 K/uL (0.11-0.59); Monocytes % (auto) 4.2 %; Neutrophils # (auto) 21.62 K/uL (1.40-6.50); Neutrophils % (auto) 85.5 %
[2024-07-15 23:01] LABS: Albumin Level 4.2 gm/dl (3.4-5.0); Bilirubin Direct 0.1 mg/dl (0-0.2); Bilirubin,Total 0.5 mg/dl (0.2-1.0); Calcium 9.1 mg/dl (8.6-10.3); Magnesium 1.7 mg/dl (1.7-2.4); Potassium 4.7 mmol/L (3.5-5.1)
[2024-07-15 23:07] LABS: BUN Creatinine Ratio 26.1 (10-20); Creatinine Clr Calc Pharmacy 61.6 ml/min; Phosphorus 3.2 mg/dl (2.5-4.9); Total Protein 7.6 gm/dl (6.0-8.3)
[2024-07-15] MEDS ORDERED: STAT IV Infusion **Titration per Protocol STA (23:12)
[2024-07-15] MEDS: MAGNESIUM SULFATE / D5W 1 GM/100 ML BAG IV SCH (23:20)
[2024-07-15] MEDS: 4.5GM X1 IV STA (23:21)
[2024-07-15] MEDS: INSULIN ASPART PER UNIT CHARGE SC ONE (23:22)
[2024-07-15] MEDS ORDERED: ONDANSETRON 4 MG OD TAB PO PRN (23:23)
[2024-07-15] MEDS: LANTUS PER UNIT CHARGE SQ SCH (23:23)
--- NOTE | 2024-07-16 01:07 | XRay Report ---
Exam(s): XR KUB EXAM: XR Abdomen, 1 View CLINICAL HISTORY: Reason for exam: Feeding Tube placement. TECHNIQUE: Frontal supine views of the abdomen/pelvis. COMPARISON: No relevant prior studies available. FINDINGS: No feeding tube is noted. Gastrointestinal tract: There is a nonspecific bowel gas pattern.. Bones/joints: There are some degenerative changes in the spine. IMPRESSION: No feeding tube is noted. Electronically signed by: Darrian Tello MD 07/16/24 01:07 AM
[2024-07-16 01:45] LABS: Bilirubin Urine Negative (Negative); Blood Urine Negative (Negative); Color Urine Yellow; Glucose Urine UA 3+ (Negative); Ketones Urine Negative (Negative); Leukocyte Esterase Urine Negative (Negative); Nitrite Urine Negative (Negative); Protein Urine Negative (Negative); Specific Gravity Urine 1.022 (1.000-1.030); Urobilinogen Urine Negative (Negative)
[2024-07-16 01:46] LABS: Appearance Urine Clear (Clear)
[2024-07-16 02:24] LABS: BUN Creatinine Ratio 22.9 (10-20); Calcium 8.9 mg/dl (8.6-10.3); Creatinine Clr Calc Pharmacy 68.3 ml/min; Potassium 4.3 mmol/L (3.5-5.1)
[2024-07-16 05:39] LABS: BUN Creatinine Ratio 19.3 (10-20); Calcium 9.2 mg/dl (8.6-10.3); Creatinine Clr Calc Pharmacy 64.4 ml/min; Magnesium 2.4 mg/dl (1.7-2.4); Phosphorus 3.4 mg/dl (2.5-4.9); Potassium 4.5 mmol/L (3.5-5.1)
[2024-07-16] MEDS: PIPERACILLIN/TAZOBACTAM 4.5 GM/100 ML BAG IV SCH (05:56)
[2024-07-16] MEDS: ICU ELECTROLYTE REPLACEMENT PROTOCOL SCH (05:57)
[2024-07-16 06:33] LABS: Basophils # (auto) 0.04 K/uL (0.00-0.20); Basophils % (auto) 0.2 %; Eosinophils # (auto) 0.03 K/uL (0.00-0.50); Eosinophils % (auto) 0.1 %; Hematocrit (blood only) 36.6 % (42.0-52.0); Hemoglobin 11.4 g/dl (14.0-18.0); Immature Granulocytes # (auto) 0.16 K/uL (0.01-0.20); Immature Granulocytes % (auto) 0.7 %; Lymphocytes # (auto) 2.61 K/uL (1.20-3.40); Lymphocytes % (auto) 11.5 %; Mean Corpuscular Hemoglobin 25.1 pg (25.0-34.0); Mean Corpuscular Hgb Conc 31.1 g/dL (32.0-36.0); Mean Corpuscular Volume 80.6 fL (80.0-100.0); Mean Platelet Volume 9.1 fL (9.4-12.4); Monocytes # (auto) 1.03 K/uL (0.11-0.59); Monocytes % (auto) 4.5 %; Neutrophils # (auto) 18.82 K/uL (1.40-6.50); Platelet Count 396 K/uL (130-400); RDW Coefficient of Variation 17.3 % (11.5-14.5); RDW Standard Deviation 51.2 fL (36.4-46.3); Red Blood Count 4.54 M/uL (4.70-6.10); White Blood Count 22.69 K/ul (4.8-10.8)
[2024-07-16 07:30] LABS: Estimated Average Glucose 186 mg/dl; Hemoglobin A1C 8.1 % (4.5-5.6)
[2024-07-16] MEDS ORDERED: ICU Protocol for HYPERglycemia SCH (07:30)
[2024-07-16] MEDS: INSULIN ASPART PER UNIT CHARGE SC SCH (08:45)
[2024-07-16] MEDS ORDERED: SACCHAROMYCES BOULARDII 250 MG CAP PO SCH (09:00)
[2024-07-16] MEDS ORDERED: EMPAGLIFLOZIN 25 MG TAB PO SCH (09:00)
[2024-07-16] MEDS ORDERED: CELECOXIB 100 MG CAP PO SCH (09:00)
[2024-07-16] MEDS ORDERED: SITagliptin PHOSPHATE 100 MG TAB PO SCH (09:00)
[2024-07-16] MEDS ORDERED: FINASTERIDE 5 MG TAB PO SCH (09:00)
[2024-07-16] MEDS ORDERED: metFORMIN HCL 500 MG TAB PO SCH (09:00)
[2024-07-16] MEDS ORDERED: gemfibroziL 600 MG TAB PO SCH (09:00)
[2024-07-16] MEDS ORDERED: CHOLECALCIFEROL 25 MCG (1000 UNITS) TAB PO SCH (09:00)
[2024-07-16] MEDS: PRAMIPEXOLE DIHYDROCHLO 0.25 MG TAB PO SCH (09:57)
[2024-07-16] MEDS: ENTACAPONE 200 MG TAB PO SCH (09:57)
[2024-07-16] MEDS: DULoxetine HCL 30 MG CAP PO SCH (09:57)
[2024-07-16] MEDS: PANTOprazole 40 MG TAB PO SCH (09:58)
[2024-07-16] MEDS: busPIRone 5 MG TAB PO SCH (09:58)
[2024-07-16] MEDS: SACCHAROMYCES BOULARDII 250 MG CAP PO SCH (09:58)
[2024-07-16] MEDS: OMEGA-3 (PURIFIED FISH OIL) 1 GM CAP PO SCH (09:58)
[2024-07-16] MEDS: CARBIDOPA/LEVODOPA 25/100MG TAB PO SCH (09:58)
[2024-07-16] MEDS: DONEPEZIL HCL 10 MG TAB PO SCH (09:58)
[2024-07-16] MEDS: MEMANTINE HCL 10 MG TAB PO SCH (09:59)
[2024-07-16] MEDS: HEPARIN SOD 5,000 UNIT/0.5 ML VIAL SQ SCH (10:04)
[2024-07-16] MEDS: SENNA 8.6 MG TAB PO SCH (10:04)
[2024-07-16] MEDS: PREGABALIN 75 MG CAP PO SCH (10:06)
--- NOTE | 2024-07-16 11:08 | Hospitalist Progress Note ---
Date of Service July 16, 2024 Assessment & Plan (1) Abdominal pain: (2) Fecal impaction: (3) HTN (hypertension): (4) GERD (gastroesophageal reflux disease): (5) DMII (diabetes mellitus, type 2): (6) Parkinsons disease: (7) LUDY (acute kidney injury): Plan 78-year-old male with history of diabetes, hypertension, Parkinson's disease presenting from outside facility after presenting with abdominal pain, nausea, vomiting, fecal impaction and ongoing hypotension. Patient was administered 3 L of crystalloid with persistent low blood pressures/shock therefore started on Levophed infusion. Shock - Broad differential at this time. Hypovolemic/septic/euglycemic DKA within the differential - Lactic acid 6.3 and hypotensive at OSH. Bicarb 15, AG 19, BSG 290, sodium 129, pH 7.27 prior to transfer. All labs improving, lactate near normalized on recheck here following fluid resuscitation Weaned from vasopressors, shock resolved OSH CThead no acute findings, nonspecific periventricular and deep white matter suspicious for small vessel disease, CTAchest and CTA/P with no evidence of PE and no acute findings of the chest abdomen or pelvis ? CVA/seizure, diagonal diplopia Patient is with diagonal diplopia/vision change. Denies other neuro deficits. CThead with nonspecific periventricular/white matter changes suspected small vessel disease at OSH MRIbrain, MRA, and carotid ultrasound pending for stroke evaluation Per family at onset of unwellness patient did have 2x 30-second episodes of shaking with urinary incontinence much worse and more intense than his prior parkinsonian tremor. This may have also been a vasovagal event on attempting to move to the bathroom, unclear from history. on evaluation at OSH did have a markedly elevated lactate, confusion, and appeared severely ill. Hypovolemia/sepsis more likely to cause his prolonged hypotension requiring vasopressors and improved with crystalloid however is new vision change and incontinence is concerning for potential CVA with seizure. He has not shown any evidence of seizure-like activity while here, will defer Keppra as this has the potential to worsen his Parkinson symptoms. Morning EEG is ordered. If recurrent seizure activity, give Ativan 2-4 mg as an abortive, and start zonisam james 50 mg twice daily. Neurology consulted to review in the morning Parkinsons w/ dementia/LBD, Anxiety Continue carbidopa/levodopa at home dose Continue entacapone Continue Aricept 20 mg p.o. every morning and memantine 10 mg p.o. twice daily for dementia Continue BuSpar 5 mg p.o. daily Continue Cymbalta 30 mg p.o. every morning Continue Lyrica 75 mg p.o. twice daily Continue pramipexole DM2,? 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 Adequately volume resuscitated on arrival BSG within goal range Continue basal bolus, glargine 30 units at bedtime and SSICF 40/CR 20. LUDY, resolved Reportedly with LUDY at OSH Baseline creatinine less than 1. Creatinine 0.88 on 07/16. Trend daily Leukocytosis No clear infectious symptoms. Patient denies respiratory, abdominal, symptoms. There is no left shift and he is afebrile He is covered empirically with Zosyn Blood cultures are pending ? Demargination critical illness/shock. Trend daily. Will continue empiric Zosyn for now. Discontinue if all tests are negative over the next 24-36 hours UA at OSH was negative. CT series negative. Pro-Inocencio negative DVT prophylaxis: Switch heparin to Lovenox with normalization of renal function CODE STATUS: Full code Disposition: Downgrade to PCU Diet: Type II DM/heart healthy Admission and Anticipated Discharge Date Admission Date: July 15, 2024 Subjective Seen at the bedside in the ICU. He has been weaned from vasopressors. Is oriented to name, year, and hospital. Slight poverty of speech but answer some questions appropriately. Poor dentition. He reports that he knows he was in the hospital because he was sick, but does not know why. He reports he just did not feel good. At time of assessment he denies chest pain, chest pressure, shortness of breath, difficulty breathing, abdominal pain, polyuria, dysuria. Denies skin rashes and denies headache. Initially denies vision change however on EOM testing he has vertical diplopia which he reports does not correct even on far peripheral gaze, does improve when covering 1 eye. Reports he thinks this is been present for a while but is not sure for how long. Initially reported this is vertical, and afternoon reassessment reports it is more horizontal/diagonal.. Does not think this changed, clarifies that when asked if it was vertical before he made it was more up into the side but not completely on top of each other On afternoon reassessment family is present at bedside. They clarified the story that when at [place] prior to his transfer he had 2 episodes of about 30 seconds of shaking which was associated with incontinence. Patient had been wet and incontinent and then had 2 additional episodes of shaking much different and which seemed much more intense than with his typical Parkinson symptoms. Blood pressure was reportedly low at that time and was told that this was likely vasovagal. He has not had a seizure before. They report he has never had double vision before. At bedside they report he looks improved but is still substantially off of his baseline. They do note that he sometimes is tachypneic due to anxiety Physical Exam Physical Exam: General: A&Ox3. NAD. Cooperative. HEENT: Atraumatic, normocephalic. Poor dentition, chipped upper tooth. Slight left eye exotropia. EOM intact without nystagmus however patient has diagonal diplopia. Initially reported this as vertical and reassessments as it is more horizontal and slightly to the side but not completely up and down. Diplopia exists in all range of testing on binocular exam, when 1 eye is covered diplopia extinguishes.. He has no facial asymmetry. Pupils are within 1 mm of each other and reactive to light. Pulm: Slightly tachypneic, CTAB A&P. -wheezes, -rales, -rhonchi. Symmetrical chest rise. No increased work of breathing. No respiratory distress. Cardiac: RRR, -mrg. Radial pulses intact and symmetrical. Abdominal: Nontender, nondistended, soft. BS present. MOTOR: RUE: 5/5 Shoulder internal rotation, external rotation, flexion, extension, abduction, adduction 5/5 Elbow flexion/extension, wrist flexi on/extension 5/5 division chair strength, finger flexion/extens ion, interosseus LUE: 5/5 Shoulder internal rotation, external rotation, flexion, extension, abduction, adduction 5/5 Elbow flexion/extension, wrist flexi on/extension 5/5 division chair strength, finger flexion/extens ion, interosseus RLE: 5/5 ankle dorsiflexion/plantarflexion LLE: 5/5 ankle dorsiflexion/plantarflexion Normal to touch in upper and lower extremities without deficit or asymmetry Results & Data Results & Data Vital Signs (Past 12 Hours) Vital Signs Temp Pulse Resp BP Pulse Ox 07/16/24 09:30 140/58 L 07/16/24 09:30 140/58 L 07/16/24 09:30 86 21 92 07/16/24 09:06 70 22 89 L 07/16/24 09:00 118/65 07/16/24 08:57 72 22 88 L 07/16/24 08:33 73 22 88 L 07/16/24 08:30 124/60 07/16/24 08:30 124/60 07/16/24 08:30 124/60 07/16/24 08:27 72 22 88 L 07/16/24 08:23 36.5 C 07/16/24 08:03 72 21 89 L 07/16/24 08:00 125/63 07/16/24 07:57 72 21 89 L 07/16/24 07:54 71 18 89 L 07/16/24 07:09 72 22 87 L 07/16/24 07:00 119/56 L 07/16/24 07:00 119/56 L 07/16/24 06:00 129/56 L 07/16/24 06:00 73 19 91 07/16/24 05:45 71 24 90 07/16/24 05:30 116/60 07/16/24 05:30 116/60 07/16/24 05:30 69 18 90 07/16/24 05:15 72 20 89 L 07/16/24 05:00 72 23 90 07/16/24 04:48 70 22 91 07/16/24 04:33 73 19 91 07/16/24 04:30 111/62 07/16/24 04:30 111/62 07/16/24 04:21 70 16 90 07/16/24 04:00 120/58 L 07/16/24 04:00 69 18 90 07/16/24 03:48 67 20 90 07/16/24 03:30 125/70 07/16/24 03:27 76 22 92 07/16/24 03:21 69 20 91 07/16/24 03:00 69 18 90 07/16/24 03:00 121/51 L 07/16/24 02:54 69 20 90 07/16/24 02:36 69 23 92 07/16/24 02:15 69 19 90 07/16/24 02:03 69 19 91 07/16/24 02:00 120/57 L 07/16/24 02:00 120/57 L 07/16/24 01:57 71 22 90 07/16/24 01:36 72 19 91 07/16/24 01:30 111/56 L 07/16/24 01:18 72 20 90 07/16/24 01:15 71 20 91 07/16/24 01:00 73 24 91 07/16/24 01:00 102/58 L 07/16/24 00:48 77 21 90 07/16/24 00:42 77 19 95 07/16/24 00:30 112/57 L 07/16/24 00:30 112/57 L 07/16/24 00:30 112/57 L 07/16/24 00:27 79 22 96 07/16/24 00:18 80 22 96 07/16/24 00:00 79 07/16/24 00:00 36.9 C 07/16/24 00:00 114/57 L 07/16/24 00:00 114/57 L 07/16/24 00:00 78 23 95 07/15/24 23:45 79 19 95 07/15/24 23:30 107/55 L 07/15/24 23:30 87 24 97 07/15/24 23:15 120/58 L 07/15/24 23:15 83 24 98 PG Care Time/CCT Total # of Minutes Spent Total Time Spent with Patient: Total time spent is greater than 50% in coordination of care (as documented) at patient's floor/unit and/or counseling patient: Coding Level of Care Code 25970 SUB INP/OBS CARE 3/50MIN Diagnoses Abdominal pain R10.9 Fecal impaction K56.41 HTN (hypertension) I10 GERD (gastroesophageal reflux disease) K21.9 DMII (diabetes mellitus, type 2) E11.9 Parkinsons disease G20.A1 LUDY (acute kidney injury) N17.9
--- NOTE | 2024-07-16 12:10 | Critical Care Progress Note ---
Date of Service July 16, 2024 Assessment & Plan (1) Shock: (2) Abdominal pain: (3) Metabolic acidosis: (4) Hyperglycemia: (5) Lactic acidosis: (6) Stage 2 acute kidney injury: (7) Fecal impaction: Plan Reason Critically Ill: 78 YOM accepted as a transfer from [place] for shock requiring vasopressor support. Patient arrives in no acute distress and hemodynamics improved while on the Levophed. Will continue with resuscitation, evaluate for infective sources, check blood cultures, urine ketones, and provide suppository and softeners for impaction. Neuro - No acute needs, history of Parkinson's disease CAM ICU: NEGATIVE - There was some question of seizure like activity on arrival to OSH, however patient return to baseline and is possible that may have been related to post syncope - Head CT at OSH negative for any acute intracranial process- follow neurol ogical exams - Continue with home - Memantine, Carbi/levadopa, Aricept, and Pramipexole - Anxiety- continue with cymbalta- +/- recently started buspar Cardiac - Shock - unspecified, Hx: HTN, HLD - Shock-resolved - Check BMP, Lactate and lipase now - Can't exclude sepsis- continue with empiric Zosyn for poss abdominal source, hold Vancomycin - Hold home antihypertensives Respiratory - no history of pulmonary problems but is on [place] - Continue - hypoxia with atelectasis is likely at this time related to abd pain as well as hyperventilation leading to hypoxia- continue supportive care GI - Abd pain, fecal impaction - Improved with suppository and stool softeners RENAL/LYTES - LUDY II, Metabolic and lactic acidosis - Likely pre-renal - Continue supportive care as above - ICU electrolyte protocol - Hold NSAIDS - Metabolic acidosis- likely associated with Metformin associated lactic acidosis as well- continue with volume resuscitation as above- see ENDO below for possibility of EDKA - NO acute needs - Continue berger while on vasopressors - hold proscar ENDO - DMII - Hold oral agents- - Hyperglycemia consult HEME - NO acute needs ID - Technically meets SIRS with RR, Hypotension, and leukocytosis, - empiric zosyn for now - MRSA negative - Will add PCT - blood cultures obtained on arrival to [facility] LINES/IV ACCESS - PIV, Berger Continue use of these lines DVT PROPHYLAXIS - SCDS, Heparin 5000 units subq DISPO: Patient able to downgrade out of ICU. Discussed with hospital service. Admission and Anticipated Discharge Date Admission Date: July 15, 2024 Subjective Patient alert and oriented to person and place. He has underlying vascular dementia. He denies any significant specific complaint at present. He is on supplemental oxygen. He is off pressors. Review of Systems Review of Systems: All systems reviewed & are unremarkable except as noted in HPI & below Physical Exam Physical Exam: General: patient resting comfortably, NAD, non-toxic in appearance, slow to answer questions but oriented x2 Skin: warm, dry, intact, no rashes or lesions HEENT: NC/AT, PERRL, EOMI, anicteric sclera, conjunctiva without injection, external ear normal to inspection and nontender, nares patent, dry mucus membranes, dentition intact, no oropharyngeal lesions, neck supple, trachea midline, no LAD, no thyromegaly, no JVD Heart: +S1/S2, regular, 3/6 LORA at LSB Lungs: equal air entry bilaterally, no rales/rhonchi/wheezes, patient tachypneic, adequate oxygenation on 2L NC Abd: +BS, mildly distended, diffusely tender most in lower abdomen without rebound/guarding Ext: warm, 2+ pulses in UE/LE bilaterally, no clubbing/cyanosis or edema Neuro: nonfocal, patient AA&O x 4, no facial droop, moving all extremities on command with equal strength 5/5 Results & Data Results & Data Vital Signs (Past 12 Hours) Vital Signs Temp Pulse Resp BP Pulse Ox O2 Del Method O2 Flow Rate 07/16/24 11:30 111/69 07/16/24 11:30 111/69 07/16/24 11:30 85 25 H 95 Nasal Cannula 2 07/16/24 11:15 36.8 C 07/16/24 11:06 83 23 92 07/16/24 10:42 78 22 94 07/16/24 10:30 115/61 07/16/24 10:27 79 25 H 92 07/16/24 10:03 84 18 89 L 07/16/24 10:00 114/56 L 07/16/24 09:51 89 30 H 93 07/16/24 09:30 140/58 L 07/16/24 09:30 140/58 L 07/16/24 09:30 140/58 L 07/16/24 09:30 86 21 92 07/16/24 09:06 70 22 89 L 07/16/24 09:00 118/65 07/16/24 08:57 72 22 88 L 07/16/24 08:33 73 22 88 L 07/16/24 08:30 Room Air 07/16/24 08:30 124/60 07/16/24 08:30 124/60 07/16/24 08:30 124/60 07/16/24 08:27 72 22 88 L 07/16/24 08:23 36.5 C 07/16/24 08:03 72 21 89 L 07/16/24 08:00 71 07/16/24 08:00 125/63 07/16/24 07:57 72 21 89 L 07/16/24 07:54 71 18 89 L 07/16/24 07:09 72 22 87 L 07/16/24 07:00 119/56 L 07/16/24 07:00 119/56 L 07/16/24 06:00 129/56 L 07/16/24 06:00 73 19 91 07/16/24 05:45 71 24 90 07/16/24 05:30 116/60 07/16/24 05:30 116/60 07/16/24 05:30 69 18 90 07/16/24 05:15 72 20 89 L 07/16/24 05:00 72 23 90 07/16/24 04:48 70 22 91 07/16/24 04:33 73 19 91 07/16/24 04:30 111/62 07/16/24 04:30 111/62 07/16/24 04:21 70 16 90 07/16/24 04:00 120/58 L 07/16/24 04:00 69 18 90 07/16/24 03:48 67 20 90 07/16/24 03:30 125/70 07/16/24 03:27 76 22 92 07/16/24 03:21 69 20 91 07/16/24 03:00 69 18 90 07/16/24 03:00 121/51 L 07/16/24 02:54 69 20 90 07/16/24 02:36 69 23 92 07/16/24 02:15 69 19 90 07/16/24 02:03 69 19 91 07/16/24 02:00 120/57 L 07/16/24 02:00 120/57 L 07/16/24 01:57 71 22 90 07/16/24 01:36 72 19 91 07/16/24 01:30 111/56 L 07/16/24 01:18 72 20 90 07/16/24 01:15 71 20 91 07/16/24 01:00 73 24 91 07/16/24 01:00 102/58 L 07/16/24 00:48 77 21 90 07/16/24 00:42 77 19 95 07/16/24 00:30 112/57 L 07/16/24 00:30 112/57 L 07/16/24 00:30 112/57 L 07/16/24 00:27 79 22 96 07/16/24 00:18 80 22 96 Coding Level of Care Code 51897 SUB INP/OBS CARE 2/35MIN Diagnoses Shock R57.9 Abdominal pain R10.9 Metabolic acidosis E87.20 Hyperglycemia R73.9 Lactic acidosis E87.20 Stage 2 acute kidney injury N17.9 Fecal impaction K56.41
--- NOTE | 2024-07-16 18:54 | Magnetic Resonance Report ---
Head MRA without contrast History: Rule out CVA. Parkinson's disease. Comparison: None Technique: Using 3D [id number] image acquisition technique, MRA of the major arteries at the base of the brain was obtained without IV contrast. 3-dimensional reconstructions of the head MRA were created. Findings: There is no evidence for intracerebral vascular stenoses, occlusions, aneurysms, or vascular malformations. The surrounding brain parenchyma appears within normal limits. Calculation of carotid stenosis is based on comparison of residual lumen to measurements of distal internal carotid diameter as the denominator for stenosis measurement based on the [place] Symptomatic Carotid Endarterectomy Trial (NASCET) methodology. Impression: Normal brain MRA Electronically signed by Kyler Thurston 07-16-2024 6:52 PM
--- NOTE | 2024-07-16 19:01 | Magnetic Resonance Report ---
MRI of the brain performed without IV contrast History: Parkinson's disease Comparison: None Technique: Sagittal T1-weighted and axial T2-weighted, T2/FLAIR and diffusion-weighted with ADC map images of the brain were obtained without IV contrast. Findings: No evidence for intracranial mass lesion, mass-effect, midline shift, or abnormal extra-axial fluid collection. There is marked generalized cerebral atrophy. Moderate, confluent high signal intensity abnormality throughout the white matter on T2/FLAIR, is most consistent with chronic small vessel ischemic disease. No abnormally reduced diffusion or evidence for acute infarct. Normal intravascular flow voids. Impression: Age-related changes without acute intracranial pathology Electronically signed by Kyler Thurston 07-16-2024 7:00 PM
--- NOTE | 2024-07-17 05:13 | XRay Report ---
EXAM: XR chest 1V portable CLINICAL HISTORY: Tachypnea/dyspnea, R/o pneumothorax. TECHNIQUE: X-ray images of the chest were obtained in AP projection. COMPARISON: No prior studies available for comparison. FINDINGS: Pulmonary Parenchyma: OBX.5.1OBX.5.1.1 Multiple scattered patchy areas of airspace opacities involving the left middle /OBX.5.1.1OBX.5.1.2 lower lung zones./OBX.5.1.2/OBX.5.1 Prominent bilateral bronchovascular markings. No evidence of pleural effusion or pleural thickening. Heart and Mediastinum: Heart size and shape are normal. No mediastinal widening or masses. No hilar or mediastinal lymphadenopathy. Bony Thorax: Bony thorax appears intact without fractures or deformities. Soft Tissues: Soft tissues overlying the chest wall are unremarkable. IMPRESSION: 1. No radiographic evidence of pneumothorax. OBX.5.1OBX.5.1.12. Multiple scattered patchy areas of airspace opacities involving the left middle /OBX.5.1.1OBX.5.1.2 lower lung zones, Infection process is suggested./OBX.5.1.2/OBX.5.1 3. Prominent bilateral bronchovascular markings. Electronically signed by Eric Servin 07-17-2024 05:13 AM
[2024-07-17 06:27] LABS: Base Excess VBG -0.9 mEq/L; HCO3 VBG 22 mmol/L; Oxygen Saturation VBG 71.3 %; PCO2 VBG 30 mmHg (38-50); PO2 VBG 41 mmHg; pH VBG 7.47 (7.36-7.41)
[2024-07-17 06:33] LABS: Hematocrit (blood only) 35.7 % (42.0-52.0); Hemoglobin 11.2 g/dl (14.0-18.0); Mean Corpuscular Hemoglobin 25.1 pg (25.0-34.0); Mean Corpuscular Hgb Conc 31.4 g/dL (32.0-36.0); Mean Corpuscular Volume 79.9 fL (80.0-100.0); Mean Platelet Volume 9.4 fL (9.4-12.4); Platelet Count 387 K/uL (130-400); RDW Coefficient of Variation 17.5 % (11.5-14.5); RDW Standard Deviation 50.4 fL (36.4-46.3); Red Blood Count 4.47 M/uL (4.70-6.10); White Blood Count 26.47 K/ul (4.8-10.8)
[2024-07-17 06:35] LABS: Hematocrit (blood only) 34.9 % (42.0-52.0); Hemoglobin 11.2 g/dl (14.0-18.0); Mean Corpuscular Hemoglobin 25.6 pg (25.0-34.0); Mean Corpuscular Hgb Conc 32.1 g/dL (32.0-36.0); Mean Corpuscular Volume 79.7 fL (80.0-100.0); Mean Platelet Volume 9.3 fL (9.4-12.4); Platelet Count 372 K/uL (130-400); RDW Coefficient of Variation 17.4 % (11.5-14.5); RDW Standard Deviation 50.9 fL (36.4-46.3); Red Blood Count 4.38 M/uL (4.70-6.10); White Blood Count 26.32 K/ul (4.8-10.8)
[2024-07-17 06:58] LABS: Albumin Level 3.7 gm/dl (3.4-5.0); Bilirubin,Total 0.5 mg/dl (0.2-1.0); Calcium 9.5 mg/dl (8.6-10.3); Creatinine Clr Calc Pharmacy 70.9 ml/min; Globulin 3.7 gm/dl (2.5-4.0); Potassium 3.8 mmol/L (3.5-5.1); Total Protein 7.4 gm/dl (6.0-8.3)
[2024-07-17 07:02] LABS: Troponin I High Sensitivity 9.9 pg/ml (0-20)
[2024-07-17 07:08] LABS: Basophils # (auto) 0.07 K/uL (0.00-0.20); Basophils % (auto) 0.3 %; Dohle Bodies 1+; Eosinophils # (auto) 0.09 K/uL (0.00-0.50); Eosinophils # (auto) 0.11 K/uL (0.00-0.50); Eosinophils % (auto) 0.3 %; Eosinophils % (auto) 0.4 %; Immature Granulocytes # (auto) 0.24 K/uL (0.01-0.20); Immature Granulocytes # (auto) 0.34 K/uL (0.01-0.20); Immature Granulocytes % (auto) 0.9 %; Immature Granulocytes % (auto) 1.3 %; Lymphocytes # (auto) 1.87 K/uL (1.20-3.40); Lymphocytes % (auto) 7.1 %; Lymphocytes % (auto) 7.2 %; Monocytes # (auto) 1.22 K/uL (0.11-0.59); Monocytes # (auto) 1.26 K/uL (0.11-0.59); Monocytes % (auto) 4.6 %; Monocytes % (auto) 4.8 %; Neutrophils # (auto) 22.79 K/uL (1.40-6.50); Neutrophils # (auto) 22.83 K/uL (1.40-6.50); Neutrophils % (auto) 86.2 %; Neutrophils % (auto) 86.6 %; Polychromasia 1+
--- NOTE | 2024-07-17 07:13 | Hospitalist Progress Note ---
Date of Service July 17, 2024 Assessment & Plan (1) Abdominal pain: (2) Fecal impaction: (3) HTN (hypertension): (4) GERD (gastroesophageal reflux disease): (5) DMII (diabetes mellitus, type 2): (6) Parkinsons disease: (7) LUDY (acute kidney injury): Plan 78-year-old male with history of diabetes, hypertension, Parkinson's disease presenting from outside facility after presenting with abdominal pain, nausea, vomiting, fecal impaction and ongoing hypotension. Patient was administered 3 L of crystalloid with persistent low blood pressures/shock therefore started on Levophed infusion. Shock -Suspect septic/hypovolemic now with evidence of worsening multifocal pneumonia - Lactic acid 6.3 and hypotensive at OSH. Bicarb 15, AG 19, BSG 290, sodium 129, pH 7.27 prior to transfer. All labs improving, lactate near normalized on recheck here following fluid resuscitation Weaned from vasopressors, shock resolved OSH CThead no acute findings, nonspecific periventricular and deep white matter suspicious for small vessel disease, CTAchest and CTA/P with no evidence of PE and no acute findings of the chest abdomen or pelvis Repeat CT with developing multifocal pneumonia. Antibiotics as noted PNA CTA obtained due to critical illness, worsening tachypnea and poor clinical appearance with uptrending leukocytosis. No evidence of PE. This does show developing multifocal pneumonia most pronounced in the left lung MRSA nare negative Sputum culture added Patient was worsening on Zosyn. Reportedly initially improved after being treated with cefepime/Flagyl at OSH Transition to cefepime/Flagyl with azithromycin for atypical coverage Blood cultures remain pending, no growth to date VBG every 4 hours. He has a respiratory alkalosis with tachypnea, SPO2 saturation is 90% on room air. Lactate remains normal. No signs of euglycemic DKA, anion gap is not elevated. ? Diplopia Patient is with diagonal diplopia/vision change. Denies other neuro deficits. CThead with nonspecific periventricular/white matter changes suspected small vessel disease at OSH Per family at onset of unwellness patient did have 2x 30-second episodes of shaking with urinary incontinence much worse and more intense than his prior parkinsonian tremor. Suspected vasovagal event on attempting to move to the bathroom, unclear from history. on evaluation at OSH did have a markedly elevated lactate, confusion, and appeared severely ill. EEG is normal. No evidence of temporal abnormalities on MRI. No further seizure workup at this time No evidence of CVA on MRI MRA without occlusion. Parkinsons w/ dementia/LBD, Anxiety Continue carbidopa/levodopa at home dose Continue entacapone Continue Aricept 20 mg p.o. every morning and memantine 10 mg p.o. twice daily for dementia Continue BuSpar 5 mg p.o. daily Continue Cymbalta 30 mg p.o. every morning Continue Lyrica 75 mg p.o. twice daily Continue pramipexole DM2,? Euglycemic DKA/HHS Prior to transfer per facility per report had metabolic acidosis, hyperglycemia, elevated lactate Patient with metformin, SGLT2, and GLP-1 [employer] placing him at risk of both euglycemic-DKA and metabolic acidosis SGLT2 has been held, metformin held. Adequately volume resuscitated on arrival BSG within goal range Continue basal bolus, glargine 30 units at bedtime and SSICF 40/CR 20. LUDY, resolved Reportedly with LUDY at OSH Baseline creatinine less than 1. Creatinine 0.88 on 07/16. Trend daily DVT prophylaxis: Switch heparin to Lovenox with normalization of renal function CODE STATUS: Full code Disposition: Downgrade to PCU Diet: Type II DM/heart healthy Admission and Anticipated Discharge Date Admission Date: July 15, 2024 Subjective Seen at the bedside. Worsened tachypnea overnight. At bedside he denies fever, chills, sweats. Does endorse abdominal discomfort/pain. He denies shortness of breath and notes he sometimes repassed when anxious, did not feel his breathing improved with Ativan this morning although his anxiety is better. On deep breathing does have some referred pain to his abdomen. Physical Exam Physical Exam: General: A&Ox3. NAD. Cooperative. HEENT: Atraumatic, normocephalic. Poor dentition, chipped upper tooth. Slight left eye exotropia. EOM intact without nystagmus however patient has diagonal diplopia. Diplopia persists Pulm: Tachypneic, much more coarse in the bases bilaterally. SpO2 90% on room air. Cardiac: RRR, -mrg. Radial pulses intact and symmetrical. Abdominal: Endorses tenderness to palpation in the epigastrium and slightly diffusely, no rebound/involuntary guarding. Bowel sounds intact Results & Data Results & Data Vital Signs (Past 12 Hours) Vital Signs Temp Pulse Pulse Resp BP Pulse Ox Pulse Ox 07/17/24 03:41 36.6 C 84 40 H 107/70 92 07/16/24 23:11 38.0 C H 93 H 18 122/75 90 07/16/24 22:03 91 H 07/16/24 21:20 90 07/16/24 19:57 36.6 C 94 H 18 106/63 91 07/16/24 19:15 O2 Del Method O2 Del Method O2 Flow Rate O2 Flow Rate 07/17/24 03:41 Nasal Cannula 1.0 07/16/24 23:11 Nasal Cannula 07/16/24 22:03 07/16/24 21:20 Nasal Cannula 2 07/16/24 19:57 Room Air 07/16/24 19:15 Nasal Cannula 2 PG Care Time/CCT Total # of Minutes Spent Total Time Spent with Patient: Total time spent is greater than 50% in coordination of care (as documented) at patient's floor/unit and/or counseling patient: Coding Level of Care Code 86989 SUB INP/OBS CARE 3/50MIN Diagnoses Abdominal pain R10.9 Fecal impaction K56.41 HTN (hypertension) I10 GERD (gastroesophageal reflux disease) K21.9 DMII (diabetes mellitus, type 2) E11.9 Parkinsons disease G20.A1 LUDY (acute kidney injury) N17.9
--- NOTE | 2024-07-17 07:22 | Ultrasound Report ---
EXAM: US carotid doppler BI CLINICAL HISTORY: vertical diplopia, CVA evaluation. TECHNIQUE: Ultrasound examination of the carotid arteries was performed in real time and duplex. One or more of the following were performed: spectral analysis, resistive index, waveform analysis, and pulsed Doppler. COMPARISON: None. FINDINGS: High bifurcation of the right common carotid artery was observed. Technically Limited Evaluation due to the patient's reduced mobility and tachypnea. Doppler Profile: Vessel Right (PSV/EDV cm/sec) Left (PSV/EDV cm/sec) Common Carotid Artery (CCA) Prox CCA: 115.4 / 16.8 Dist CCA: 85.6 / 16.5 Prox CCA: 86.8 / 22.5 Dist CCA: 68.6 / 18.9 Bulb 94.1 / 18.9 62.9 / 16.8 Internal Carotid Artery (ICA) - Proximal Prox ICA: 85.0 / 17.6 Mid ICA: 76.5 / 8.9 Prox ICA: 238.8 / 58.4 Mid ICA: 176.9 / 53.6 Internal Carotid Artery (ICA) - Distal Not visualized. 203.8 / 49.7 External Carotid Artery (ECA) 100.9 / 10.2 109.3 / 20.0 Vertebral Artery (VA) Not visualized. 74.6 / 13.4 Right ICA/CCA Ratio 1 Left ICA/CCA Ratio 3.5 Velocities and spectral waveform: Elevated peak systolic and end-diastolic velocities are noted in the left internal carotid artery. Otherwise, within normal, peak systolic velocities are noted bilaterally. Spectral waveform is: Triphasic on the right, consistent with normal high-resistance flow. Biphasic on the left, which may suggest downstream resistance or early hemodynamic effect of stenosis. Plaque Characterization: Multifocal, sclerotic atherosclerotic plaques with calcification are noted, primarily involving the carotid bulbs and proximal left internal carotid artery. These plaques are causing: Approximately 50% stenosis at the carotid bulb bilaterally. 50?60% stenosis in the left proximal ICA. Stenosis Evaluation: Left ICA/CCA ratio of 3.5, PSV 230 cm/s, and EDV 40?100 cm/s support moderate (50?69%) stenosis. The right ICA/CCA ratio is 2.0, within normal limits. Vertebral Arteries: Normal flow noted in the left vertebral artery. The right vertebral artery was not visualized. IMPRESSION: 1. Moderate (50?60%) stenosis in the left proximal ICA based on elevated PSV/EDV and ICA/CCA ratio. 2. Mild to moderate (50%) bilateral carotid bulb stenosis with calcific plaque formation. 3. Recommend CTA carotid for better evaluation if clinically warranted. NASCET Criteria for carotid stenosis: Degree of Stenosis Measurement Criteria (Angiography) Peak Systolic Velocity (PSV) End Diastolic Velocity (EDV) PSV Ratio ICA/CCA Clinical Indications for Surgery Normal No narrowing 125 cm/s 40 cm/s 2.0 Not indicated for surgery Mild Stenosis 50% narrowing of the carotid artery 125 cm/s 40 cm/s 2.0 Generally, not indicated for surgery Moderate Stenosis 50% to 69% narrowing of the carotid artery 125 - 230 cm/s 40 - 100 cm/s 2.0 - 4.0 May be considered for surgery based on individual factors Severe Stenosis 70% to 99% narrowing of the carotid artery 230 cm/s 100 cm/s 4.0 Recommended for surgery in symptomatic patients Total Occlusion 100% blockage of the carotid artery No flow detected No flow detected Not applicable Surgery is not typically performed due to complete blockage Electronically signed by Eric Servin 07-17-2024 07:22 AM
[2024-07-17 07:26] LABS: BUN Creatinine Ratio 19.8 (10-20); Calcium 9.5 mg/dl (8.6-10.3); Phosphorus 2.8 mg/dl (2.5-4.9); Potassium 3.8 mmol/L (3.5-5.1)
[2024-07-17] MEDS: metroNIDAZOLE 500 MG/100 ML BAG IV SCH (08:07)
[2024-07-17] MEDS: CEFEPIME 2000MG 2,000 MG/20 ML SYR IV SCH (08:07)
--- NOTE | 2024-07-17 08:21 | Electroencephalogram ---
EEG Procedure Note Date of Service July 17, 2024 Start / End Times Start Time: 0614 End Time: 0634 Referring Physician leonel mendez History LOC Inpatient Medication List Buspirone HCl (Buspirone 5 Mg Tab) 5 mg PO DAILY [facility] Stop: 08/15/24 08:59 Last Admin: 07/17/24 08:10 Dose: 5 mg Documented By: Admin: 07/16/24 09:58 Dose: 5 mg Documented By: JEREMIAH Carbidopa/Levodopa (Carbidopa/Levodopa 25/100mg Tab) 1 tab PO QID [facility] Stop: 08/15/24 08:59 Last Admin: 07/17/24 08:08 Dose: 1 tab Documented By: Admin: 07/16/24 20:40 Dose: 1 tab Documented By: Admin: 07/16/24 18:51 Dose: 1 tab Documented By: Admin: 07/16/24 13:17 Dose: 1 tab Documented By: Admin: 07/16/24 09:58 Dose: 1 tab Documented By: JEREMIAH Donepezil HCl (Donepezil Hcl 10 Mg Tab) 20 mg PO QAM [facility] Stop: 08/15/24 08:59 Last Admin: 07/17/24 08:09 Dose: 20 mg Documented By: Admin: 07/16/24 09:58 Dose: 20 mg Documented By: JEREMIAH Duloxetine HCl (Duloxetine Hcl 30 Mg Cap) 30 mg PO QAM [facility] Stop: 08/15/24 08:59 Last Admin: 07/17/24 08:09 Dose: 30 mg Documented By: Admin: 07/16/24 09:57 Dose: 30 mg Documented By: JEREMIAH Entacapone (Entacapone 200 Mg Tab) 200 mg PO QID [facility] Stop: 08/15/24 08:59 Last Admin: 07/17/24 08:08 Dose: 200 mg Documented By: Admin: 07/16/24 20:39 Dose: 200 mg Documented By: Admin: 07/16/24 18:51 Dose: 200 mg Documented By: Admin: 07/16/24 13:17 Dose: 200 mg Documented By: Admin: 07/16/24 09:57 Dose: 200 mg Documented By: JEREMIAH Fish Oil (Sophia-3 (Purified Fish Oil) 1 Gm Cap) 1 cap PO QAM [facility] Stop: 08/15/24 08:59 Last Admin: 07/17/24 08:09 Dose: 1 cap Documented By: Admin: 07/16/24 09:58 Dose: 1 cap Documented By: JEREMIAH Cefepime HCl (Maxipime 2000mg) 2,000 mg in 20 mls @ 5 mls/min IV Q8H [facility]; Protocol Stop: 07/22/24 07:29 Last Admin: 07/17/24 08:07 Dose: 5 mls/min Documented By: JELLY Metronidazole (Flagyl) 500 mg in 100 mls @ 100 mls/hr IV Q8H [facility]; Protocol Stop: 07/22/24 07:14 Last Admin: 07/17/24 08:07 Dose: 100 mls/hr Documented By: JELLY Insulin Aspart (Insulin Aspart Per Unit Charge) 0 units SC ACHS [facility] Stop: 08/15/24 07:29 Last Admin: 07/17/24 08:07 Dose: Not Given Documented By: Admin: 07/16/24 20:40 Dose: Not Given Documented By: Admin: 07/16/24 17:30 Dose: 2 units Documented By: CHANA Co-signed By: SANDY Admin: 07/16/24 11:55 Dose: Not Given Documented By: Admin: 07/16/24 08:45 Dose: Not Given Documented By: JEREMIAH Insulin Glargine (Lantus Per Unit Charge) 30 units SQ HS [facility] Stop: 08/14/24 22:29 Last Admin: 07/16/24 20:40 Dose: 30 units Documented By: LANCE Co-signed By: ELIZABETH Admin: 07/15/24 23:23 Dose: 30 units Documented By: DIALLO Co-signed By: YURI Memantine (Memantine Hcl 10 Mg Tab) 10 mg PO BID [facility] Stop: 08/15/24 08:59 Last Admin: 07/17/24 08:08 Dose: 10 mg Documented By: Admin: 07/16/24 20:40 Dose: 10 mg Documented By: Admin: 07/16/24 09:59 Dose: 10 mg Documented By: JEREMIAH Pantoprazole Sodium (Pantoprazole 40 Mg Tab) 40 mg PO QAM [facility] Stop: 08/15/24 08:59 Last Admin: 07/17/24 08:08 Dose: 40 mg Documented By: Admin: 07/16/24 09:58 Dose: 40 mg Documented By: JEREMIAH Pramipexole Dihydrochloride (Pramipexole Dihydrochlo 0.25 Mg Tab) 0.125 mg PO BID [facility] Stop: 08/15/24 08:59 Last Admin: 07/17/24 08:10 Dose: 0.125 mg Documented By: Admin: 07/16/24 20:39 Dose: 0.125 mg Documented By: Admin: 07/16/24 09:57 Dose: 0.125 mg Documented By: JEREMIAH Pregabalin (Pregabalin 75 Mg Cap) 75 mg PO BID [facility] Stop: 08/15/24 08:59 Last Admin: 07/17/24 08:16 Dose: 75 mg Documented By: Admin: 07/16/24 20:39 Dose: 75 mg Documented By: Admin: 07/16/24 10:06 Dose: 75 mg Documented By: JEREMIAH Saccharomyces Boulardii (Saccharomyces Boulardii 250 Mg Cap) 250 mg PO DAILY [facility] Stop: 08/15/24 08:59 Last Admin: 07/17/24 08:13 Dose: 250 mg Documented By: Admin: 07/16/24 09:58 Dose: 250 mg Documented By: JEREMIAH Sennosides (Senna 8.6 Mg Tab) 17.2 mg PO QAM [facility] Stop: 08/15/24 08:59 Last Admin: 07/17/24 08:16 Dose: 17.2 mg Documented By: Admin: 07/16/24 10:04 Dose: 17.2 mg Documented By: JEREMIAH Discontinued Medications Bisacodyl (Bisacodyl 10 Mg Supp) 10 mg VA NOW STA Stop: 07/15/24 21:26 Last Admin: 07/15/24 22:34 Dose: 10 mg Documented By: DIALLO Heparin Sodium (Porcine) (Heparin Sod 5,000 Unit/0.5 Ml Vial) 5,000 units SQ Q12 [facility] Stop: 08/15/24 08:59 Last Admin: 07/16/24 10:04 Dose: 5,000 units Documented By: JEREMIAH Lactated Ringer's (Lr) 1,000 mls @ 999 mls/hr IV .Q1H1M ONE Stop: 07/15/24 22:20 Last Infusion: 07/15/24 23:20 Dose: Infused Documented By: Admin: 07/15/24 21:45 Dose: 999 mls/hr Documented By: DIALLO Lactated Ringer's (Lr) 1,000 mls @ 125 mls/hr IV .Q8H [facility] Stop: 07/16/24 05:29 Last Infusion: 07/16/24 06:04 Dose: Infused Documented By: Admin: 07/15/24 22:46 Dose: 125 mls/hr Documented By: DIALLO Piperacillin Sod/Tazobactam Sod (Zosyn) 4.5 gm in 100 mls @ 25 mls/hr IV Q8H [facility]; Protocol Stop: 07/18/24 05:59 Last Admin: 07/17/24 05:51 Dose: 25 mls/hr Documented By: Infusion: 07/17/24 01:40 Dose: Infused Documented By: Admin: 07/16/24 21:40 Dose: 25 mls/hr Documented By: Infusion: 07/16/24 17:54 Dose: Infused Documented By: Admin: 07/16/24 14:27 Dose: 25 mls/hr Documented By: Infusion: 07/16/24 11:11 Dose: Infused Documented By: Admin: 07/16/24 05:56 Dose: 25 mls/hr Documented By: DIALLO Piperacillin Sod/Tazobactam Sod (Zosyn) 4.5 gm in 100 mls @ 200 mls/hr IV NOW STA; Protocol Stop: 07/15/24 23:03 Last Infusion: 07/16/24 00:31 Dose: Infused Documented By: Admin: 07/15/24 23:21 Dose: 200 mls/hr Documented By: DIALLO Magnesium Sulfate/Dextrose (Magnesium Sulfate / D5w) 1 gm in 100 mls @ 50 mls/hr IV Q2H [facility] Stop: 07/16/24 03:14 Last Infusion: 07/16/24 03:30 Dose: Infused Documented By: Admin: 07/16/24 01:09 Dose: 50 mls/hr Documented By: Infusion: 07/16/24 01:09 Dose: Infused Documented By: Admin: 07/15/24 23:20 Dose: 50 mls/hr Documented By: DIALLO Norepinephrine Bitartrate (Levophed/D5w) 4 mg in 250 mls @ 0 mls/hr IV .Q0M [facility]; Protocol Stop: 08/14/24 23:14 Last Titration: 07/16/24 12:17 Dose: Infused Documented By: AMS Co-signed By: CA Titration: 07/15/24 22:30 Dose: 0 mcg/kg/min, 0 mls/hr Documented By: MNShonda Co-signed By: YURI Titration: 07/15/24 22:15 Dose: 0.01 mcg/kg/min, 2.6 mls/hr Documented By: MNShonda Co-signed By: JCosme Titration: 07/15/24 22:00 Dose: 0.03 mcg/kg/min, 7.7 mls/hr Documented By: DIALLO Co-signed By: YURI Titration: 07/15/24 21:19 Dose: 0.05 mcg/kg/min, 12.8 mls/hr Documented By: DIALLO Co-signed By: YURI Titration: 07/15/24 21:05 Dose: 0.07 mcg/kg/min, 17.9 mls/hr Documented By: MNShonda Co-signed By: YURI Admin: 07/15/24 20:48 Dose: 0.09 mcg/kg/min, 23.1 mls/hr Documented By: DIALLO Co-signed By: YURI Insulin Aspart (Insulin Aspart Per Unit Charge) 0 units SC NOW ONE Stop: 07/15/24 22:46 Last Admin: 07/15/24 23:22 Dose: 2 units Documented By: DIALLO Co-signed By: YURI Miscellaneous (Icu Electrolyte Replacement Protocol) 1 each N/A BID@06,18 [facility]; Protocol Stop: 07/23/24 05:59 Last Admin: 07/16/24 05:57 Dose: 1 each Documented By: DIALLO Miscellaneous Information (Patient's Allergy Info Needs Entered) 1 each N/A Q30M STA Stop: 07/15/24 21:35 Last Admin: 07/15/24 22:28 Dose: Not Given Documented By: DIALLO Description This is a 21 electrode EEG with a single channel dedicated to limited EKG. The electrodes were placed in accordance with the International 10-20 system. Interpretation This is a 21 electrode EEG with a single channel dedicated to limited EKG. The electrodes were placed in accordance with the International 10-20 system. There is a posterior dominant rhythm of 8 Hz which is symmetrically distributed and attenuates with eye opening. There is a normal anterior to posterior organization. Photic stimulation: unremarkable Hyperventilation performed: _x__ unremarkable; __ not performed. There is no focal slowing. No epileptiform abnormalities. Sleep stage: _x_ not achieved, ___drowsy state, ___ Stage II, ___ REM stage achieved. Interpretation Normal-appearing awake/sleep EEG. [facility] EEG Procedure Codes Indication for Procedure (1) Shock: Neurology Neurology: 23108 EEG include record awake & drowsy
--- NOTE | 2024-07-17 08:42 | Neurology Consultation ---
Date of Consultation July 17, 2024 Assessment & Plan (1) Syncope: History of Present Illness Attending Physician: Ramesh Ly MD History of Present Illness S: pt this morning feeling much better. EEG normal. pt with known parkinson disease, followed by Dr. Garcia at [place]. pt with ongoing several medical issues including shock, hypotension, metabolic disorders etc. chart reviewed. admission HPI: Karsten Pereira is a 78-year-old male with history of diabetes, Parkinson's disease presenting from [facility] after presenting with an episode of unresponsiveness. Patient was at home when he got up to try to have a bowel movement and became unresponsive. He became diaphoretic and hypotensive. EMS was called. Upon arrival to the emergency room patient noted to be pale and vomiting. Blood pressure in the 80s. Patient was administered 2 L of normal saline with no improvement in blood pressure therefore Levophed drip was initiated. He was transferred to [facility] ICU for continued workup and management. Patient reportedly vomited x 2, non-bloody. No diarrhea. He has been constipated for "a while", uncertain when his last BM was. Patient recently started on sitagliptin Patient evaluated at bedside. He is reporting abdominal pain. No additional complaints at this time. Specifically denies chest pain, SOB. 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 fluent speech, normal comprehension, no apraxia, , no neglect CN: PERRL, Full EOM, symmetric face, midline T/U/P, grossly full ROM neck Motor: No abnormal movements, moves all limb well. Coord: intact grossly upper limbs. DTR: 1+ sym b/l Impression: 78 yo male with likely syncopal event from hypovolumic/hypotension shock. Not suggestive of Seizure. EEG normal also. MRI/MRA brain negativ.e Recommendations: no further seizure work up needed. continue medical management. avoid hypotension call again if new question. Chart reviewed I have spent more than 50% educating patient about potential diagnosis and neurological evaluation and coordinating care with patient's treatment team. Total time spent (including chart review and coordination of care): 45 min (this includes chart review). Results & Data Vital Signs (Past 12 Hours) Vital Signs Temp Pulse Pulse Resp BP Pulse Ox Pulse Ox 07/17/24 07:31 37.3 C 89 20 111/68 90 07/17/24 03:41 36.6 C 84 40 H 107/70 92 07/16/24 23:11 38.0 C H 93 H 18 122/75 90 07/16/24 22:03 91 H 07/16/24 21:20 90 O2 Del Method O2 Del Method O2 Flow Rate O2 Flow Rate 07/17/24 07:31 Room Air 07/17/24 03:41 Nasal Cannula 1.0 07/16/24 23:11 Nasal Cannula 07/16/24 22:03 07/16/24 21:20 Nasal Cannula 2 PG Care Time/CCT Total # of Minutes Spent Total Time Spent with Patient: Total time spent is greater than 50% in coordination of care (as documented) at patient's floor/unit and/or counseling patient: Coding Level of Care Code 47064 IN/OBS CONSULT LVL 3,45M Diagnoses Syncope, unspecified syncope type R55 Syncope type: unspecified (1) Syncope Syncope type: unspecified Qualified Code(s): R55 - Syncope and collapse
[2024-07-17] MEDS: LORazepam 2 MG/1 ML VIAL IV PRN (08:55)
[2024-07-17 09:16] LABS: Base Excess VBG -2.4 mEq/L; HCO3 VBG 21 mmol/L; Oxygen Saturation VBG 63.5 %; PCO2 VBG 32 mmHg (38-50); PO2 VBG 36 mmHg; pH VBG 7.43 (7.36-7.41)
[2024-07-17] MEDS: AZITHROMYCIN 250 MG TAB PO ONE (09:37)
[2024-07-17] MEDS: OPTIRAY 320 125ml IV ONE (10:38)
--- NOTE | 2024-07-17 11:04 | CT Scan Report ---
ABDOMEN AND PELVIS CT WITH IV CONTRAST CT DOSE: 2014.77 mGy.cm HISTORY: abdominal pain, sepsis TECHNIQUE: Multiaxial CT images of the abdomen and pelvis were performed following the IV administrat ion of 120 cc of Optiray, A dose lowering technique was utilized adhering to the principles of ALARA . COMPARISON STUDY: None FINDINGS: There is patchy consolidation at the left lower lung. ABDOMEN: There is mild nodular liver contour and mild liver hypodensity which could represent early c irrhosis or mild fatty liver. No ascites. Gallbladder, spleen, pancreas, and adrenal glands are unrem arkable. There is no hydronephrosis bilaterally. No renal calculi. There is a 5 cm cyst upper left ki dney. There are mild atherosclerotic calcifications. No abdominal aortic aneurysm. Pelvis: Crsos catheter is present. Urinary bladder is nondistended. Prostate is mildly enlarged. Ther e is moderate retained stool. There is mild colonic diverticulosis. No acute diverticulitis. No bowel inflammation or obstruction. No free fluid, free air, or abscess. No enlarged adenopathy. Osseous structures: There is mild degenerative change at the lumbar spine and hips. IMPRESSION: 1. Left-sided pneumonia. 2. No acute findings at the abdomen or pelvis. Otherwise as described. ACT 112: Negative or not required by law. The above report was generated using voice recognition software. It may contain grammatical, syntax o r spelling errors. Electronically signed by: Moises Crowe M.D. 07/17/2024 11:02 AM
--- NOTE | 2024-07-17 11:05 | CT Scan Report ---
CT angio chest PE protocol HISTORY: 78 years-old Male with PE, tachypnea >30. Acute shortness of breath TECHNIQUE: Multiple CTA images of the chest were obtained after the intravenous administration of 119 ml Optiray. Coronal and sagittal MIPS were obtained from the axial data set and were submitted for review. All measurements were obtained according to NASCET criteria. A dose lowering technique was u tilized adhering to the principles of ALARA. COMPARISON: CT abdomen and pelvis of same day FINDINGS: CTA: Heart is mildly enlarged. No pericardial effusion. Extensive coronary artery calcifications. No thora cic aortic aneurysm or dissection. No central pulmonary emboli identified. There is suboptimal evalua tion of the segmental and subsegmental branches secondary to contrast bolus timing. CT CHEST: Unremarkable thyroid. Mild likely reactive left hilar lymphadenopathy. Small left pleural effusion. M ild dependent consolidation of the right lung, most pronounced in the right upper lobe and superior s egment of the right lower lobe. Additional patchy multifocal groundglass and consolidative opacities are noted throughout the left upper and lower lobes. Respiratory motion artifact limits the study. Th e central airways are patent. Cirrhotic morphology of the liver. Exophytic hypodense lesion of the superior pole left kidney, likel y a cyst. Unremarkable soft tissues. There is no acute fracture. IMPRESSION: 1. Multifocal pneumonia, most pronounced throughout the left lung. Follow-up chest CT after treatment course recommended in order to document complete resolution. 2. Limited exam secondary to respiratory motion. No central pulmonary emboli identified. 3. Mild left hilar lymphadenopathy, likely reactive. 4. Small left parapneumonic effusion. 5. Cirrhotic liver. ACT 112: Negative or not required by law. The above report was generated using voice recognition software. It may contain grammatical, syntax o r spelling errors. Electronically signed by: Kumar Quiles M.D. 07/17/2024 11:04 AM
--- NOTE | 2024-07-17 12:19 | Electrocardiogram Report ---
Test Reason : Blood Pressure : */* mmHG Vent. Rate : 79 BPM Atrial Rate : 79 BPM P-R Int : 148 ms QRS Dur : 90 ms QT Int : 394 ms P-R-T Axes : 34 0 39 degrees QTcB Int : 451 ms Normal sinus rhythm Normal ECG No previous ECGs available Confirmed by Arnaud Patiño ([id number]) on 07/17/2024 12:19:18 PM Referred By: Dayday Valentin Confirmed By: Arnaud Patiño
[2024-07-17 12:50] LABS: Base Excess VBG -0.3 mEq/L; HCO3 VBG 24 mmol/L; Oxygen Saturation VBG < 60.0 %; PCO2 VBG 38 mmHg (38-50); PO2 VBG 27 mmHg; pH VBG 7.41 (7.36-7.41)
[2024-07-17] MEDS: ENOXAPARIN INJ 40 MG/0.4 ML SYR SQ SCH (17:04)
[2024-07-17 17:42] LABS: Base Excess VBG -0.8 mEq/L; HCO3 VBG 22 mmol/L; Oxygen Saturation VBG 85.9 %; PCO2 VBG 29 mmHg (38-50); PO2 VBG 53 mmHg; pH VBG 7.48 (7.36-7.41)
--- NOTE | 2024-07-17 18:35 | Electrocardiogram Report ---
Test Reason : Blood Pressure : */* mmHG Vent. Rate : 94 BPM Atrial Rate : 94 BPM P-R Int : 148 ms QRS Dur : 96 ms QT Int : 364 ms P-R-T Axes : 23 0 28 degrees QTcB Int : 455 ms Normal sinus rhythm Normal ECG When compared with ECG of 15-Jul-2024 21:08, (unconfirmed) No significant change was found Confirmed by Kyler Ortega ([id number]) on 07/17/2024 6:34:52 PM Referred By: Dayday Valentin Confirmed By: Kyler Ortega
[2024-07-18 07:08] LABS: Basophils # (auto) 0.04 K/uL (0.00-0.20); Basophils % (auto) 0.2 %; Hematocrit (blood only) 33.1 % (42.0-52.0); Hemoglobin 10.6 g/dl (14.0-18.0); Immature Granulocytes # (auto) 0.27 K/uL (0.01-0.20); Immature Granulocytes % (auto) 1.3 %; Lymphocytes # (auto) 1.86 K/uL (1.20-3.40); Lymphocytes % (auto) 8.9 %; Mean Corpuscular Hemoglobin 25.4 pg (25.0-34.0); Mean Corpuscular Volume 79.4 fL (80.0-100.0); Mean Platelet Volume 9.3 fL (9.4-12.4); Monocytes # (auto) 1.01 K/uL (0.11-0.59); Monocytes % (auto) 4.8 %; Neutrophils # (auto) 17.46 K/uL (1.40-6.50); Neutrophils % (auto) 83.8 %; Platelet Count 335 K/uL (130-400); RDW Coefficient of Variation 18.1 % (11.5-14.5); RDW Standard Deviation 52.2 fL (36.4-46.3); Red Blood Count 4.17 M/uL (4.70-6.10); White Blood Count 20.84 K/ul (4.8-10.8)
[2024-07-18 07:26] LABS: Calcium 9.4 mg/dl (8.6-10.3); Magnesium 2.1 mg/dl (1.7-2.4); Phosphorus 3.5 mg/dl (2.5-4.9); Potassium 3.6 mmol/L (3.5-5.1)
[2024-07-18] MEDS: AZITHROMYCIN 250 MG TAB PO SCH (08:13)
--- NOTE | 2024-07-18 13:19 | Hospitalist Progress Note ---
Date of Service July 18, 2024 Assessment & Plan (1) Abdominal pain: (2) Fecal impaction: (3) HTN (hypertension): (4) GERD (gastroesophageal reflux disease): (5) DMII (diabetes mellitus, type 2): (6) Parkinsons disease: (7) LUDY (acute kidney injury): Plan 78-year-old male with history of diabetes, hypertension, Parkinson's disease presenting from outside facility after presenting with abdominal pain, nausea, vomiting, fecal impaction and ongoing hypotension. Patient was administered 3 L of crystalloid with persistent low blood pressures/shock therefore started on Levophed infusion. Subsequently weaned and downgraded. Planning summary: Patient has had dramatic lyrical improvement 07/18. Switch from Zosyn to cefepime/Flagyl/azithromycin for multifocal pneumonia with good benefit leukocytosis downtrending. Unfortunately blood cultures negative, sputum again chain positive but has not been able to expectorate. Given his initial severe illness and deterioration on switched to Zosyn will need extended spectrum treatment. PT/OT pending for dispo planning, if he is discharged to acute rehab would favor continuing completion of course of cefepime in that setting however could consider transition to Levaquin as a p.o. option Shock, suspect from pneumonia. Resolved - Suspect septic/hypovolemic now with evidence of worsening multifocal pneumonia - Lactic acid 6.3 and hypotensive at OSH. Bicarb 15, AG 19, BSG 290, sodium 129, pH 7.27 prior to transfer. All labs improving, lactate near normalized on recheck here following fluid resuscitation Weaned from vasopressors, shock resolved OSH CThead no acute findings, nonspecific periventricular and deep white matter suspicious for small vessel disease, CTAchest and CTA/P with no evidence of PE and no acute findings of the chest abdomen or pelvis PNA CT-chest obtained due to worsening illness, worsening tachypnea and poor clinical appearance with uptrending leukocytosis. No evidence of PE. This does show developing multifocal pneumonia most pronounced in the left lung MRSA nare negative Sputum culture added Patient was worsening on Zosyn. Reportedly initially improved after being treated with cefepime/Flagyl at OSH Transition to cefepime/Flagyl with azithromycin for atypical coverage Blood cultures remain pending, no growth to date 07/18 clinical improvements is dramatically improved. Good energy. On 1 L of nasal cannula but work of breathing significantly improved. PT/OT ordered that he can tolerate this with improvement ? Diplopia Patient is with diagonal diplopia/vision change. Denies other neuro deficits. CThead with nonspecific periventricular/white matter changes suspected small vessel disease at OSH Per family at onset of unwellness patient did have 2x 30-second episodes of shaking with urinary incontinence much worse and more intense than his prior parkinsonian tremor. Suspected vasovagal event on attempting to move to the bathroom, unclear from history. on evaluation at OSH did have a markedly elevated lactate, confusion, and appeared severely ill. EEG is normal. No evidence of temporal abnormalities on MRI. No further seizure workup at this time No evidence of CVA on MRI MRA without occlusion. Parkinsons w/ dementia/LBD, Anxiety Continue carbidopa/levodopa at home dose Continue entacapone Continue Aricept 20 mg p.o. every morning and memantine 10 mg p.o. twice daily for dementia Continue BuSpar 5 mg p.o. daily Continue Cymbalta 30 mg p.o. every morning Continue Lyrica 75 mg p.o. twice daily Continue pramipexole DM2,? Euglycemic DKA/HHS Prior to transfer per facility per report had metabolic acidosis, hy perglycemia, elevated lactate SGLT2 has been held, metformin held. Continue basal bolus, glargine 30 units at bedtime and SSICF 40/CR 20. Suspect his illness was all due to sepsis likely due to pneumonia however higher risk of euglycemic DKA with SGLT2/GLP-1. Would hold SGLT2 and follow-up for alternatives on discharge LUDY, resolved Reportedly with LUDY at OSH Baseline creatinine less than 1. Creatinine 0.88 on 07/16. Trend daily DVT prophylaxis: Lovenox CODE STATUS: Full code Disposition: Downgrade to PCU Diet: Type II DM/heart healthy Admission and Anticipated Discharge Date Admission Date: July 15, 2024 Subjective Greatly improved today. Good energy, patient actively greets provider on entry and no acute distress. Work of breathing dramatically improved. Denies shortness of breath difficulty breathing. Has not yet produced any sputum. Physical Exam Physical Exam: General: Oriented to name. Answers questions appropriately NAD. Cooperative. HEENT: Atraumatic, normocephalic. Vision and hearing grossly intact Pulm: Slightly coarse in the bases bilaterally, work of breathing greatly improved, no wheezing. Cardiac: RRR, -mrg. Radial pulses intact and symmetrical. Abdominal: Nontender, soft Results & Data Results & Data Vital Signs (Past 12 Hours) Vital Signs Temp Pulse Pulse Resp BP Pulse Ox O2 Del Method 07/18/24 10:43 36.8 C 82 18 119/69 93 Nasal Cannula 07/18/24 09:00 Nasal Cannula 07/18/24 07:40 71 07/18/24 07:24 36.4 C L 76 22 111/69 90 Nasal Cannula 07/18/24 02:53 37.4 C 78 19 120/75 92 Nasal Cannula O2 Flow Rate 07/18/24 10:43 1 07/18/24 09:00 2 07/18/24 07:40 07/18/24 07:24 2 07/18/24 02:53 2 PG Care Time/CCT Total # of Minutes Spent Total Time Spent with Patient: Total time spent is greater than 50% in coordination of care (as documented) at patient's floor/unit and/or counseling patient: Coding Level of Care Code 84434 SUB INP/OBS CARE 3/50MIN Diagnoses Abdominal pain R10.9 Fecal impaction K56.41 HTN (hypertension) I10 GERD (gastroesophageal reflux disease) K21.9 DMII (diabetes mellitus, type 2) E11.9 Parkinsons disease G20.A1 LUDY (acute kidney injury) N17.9
[2024-07-18] MEDS: LANTUS PER UNIT CHARGE SQ SCH (21:32)
[2024-07-19 06:46] LABS: Basophils # (auto) 0.04 K/uL (0.00-0.20); Basophils % (auto) 0.3 %; Eosinophils # (auto) 0.31 K/uL (0.00-0.50); Eosinophils % (auto) 2.4 %; Hematocrit (blood only) 31.6 % (42.0-52.0); Hemoglobin 10.2 g/dl (14.0-18.0); Immature Granulocytes # (auto) 0.15 K/uL (0.01-0.20); Immature Granulocytes % (auto) 1.2 %; Lymphocytes # (auto) 1.97 K/uL (1.20-3.40); Lymphocytes % (auto) 15.2 %; Mean Corpuscular Hemoglobin 25.1 pg (25.0-34.0); Mean Corpuscular Hgb Conc 32.3 g/dL (32.0-36.0); Mean Corpuscular Volume 77.8 fL (80.0-100.0); Mean Platelet Volume 9.1 fL (9.4-12.4); Monocytes # (auto) 0.57 K/uL (0.11-0.59); Monocytes % (auto) 4.4 %; Neutrophils # (auto) 9.88 K/uL (1.40-6.50); Neutrophils % (auto) 76.5 %; Platelet Count 322 K/uL (130-400); RDW Coefficient of Variation 17.7 % (11.5-14.5); RDW Standard Deviation 50.2 fL (36.4-46.3); Red Blood Count 4.06 M/uL (4.70-6.10); White Blood Count 12.92 K/ul (4.8-10.8)
[2024-07-19 07:22] LABS: BUN Creatinine Ratio 26.1 (10-20); Calcium 9.3 mg/dl (8.6-10.3); Creatinine Clr Calc Pharmacy 82.2 ml/min; Magnesium 1.9 mg/dl (1.7-2.4); Phosphorus 3.7 mg/dl (2.5-4.9); Potassium 3.8 mmol/L (3.5-5.1)
[2024-07-19] MEDS: metroNIDAZOLE 500 MG TAB PO SCH (14:06)
--- NOTE | 2024-07-19 20:27 | Hospitalist Progress Note ---
Date of Service July 19, 2024 Assessment & Plan (1) Abdominal pain: (2) Fecal impaction: (3) HTN (hypertension): (4) GERD (gastroesophageal reflux disease): (5) DMII (diabetes mellitus, type 2): (6) Parkinsons disease: (7) LUDY (acute kidney injury): Plan 78 years old male with PMH of FULL CODE @ home, Parkinson's disease with dementia, presenting from outside facility, after presenting with abdominal pain, nausea, vomiting, fecal impaction and ongoing hypotension. Patient was admitted to the inpatient hospitalist service @ [facility] on 07/15/2024 with the following diagnosis: 1. Severe sepsis / septic shock due to multi-lobar CAP. The following medical issues are being addressed: 1. Severe sepsis / septic shock due to multi-lobar CAP, RESOLVED. Patient received 3 L of crystalloid with persistent low blood pressures/shock, followed by norepinephrine infusion, which was subsequently weaned and downgraded. Patient has had dramatic improvement on 07/18/2024 and 07/19/2024. Switch from zosyn to cefepime/metronidazole/azithromycin for multifocal pneumonia with good benefit leukocytosis downtrending. Unfortunately blood cultures negative, sputum again chain positive but has not been able to expectorate. Given his initial severe illness and deterioration on switched to Zosyn will need extended spectrum treatment. PT/OT pending for dispo planning, if he is discharged to acute rehab would favor continuing completion of course of cefepime in that setting however could consider transition to Levaquin as a p.o. option - Suspect septic/hypovolemic shock due to multi-lobar CAP. - Lactic acid 6.3 and hypotensive at OSH. Bicarb 15, AG 19, BSG 290, sodium 129, pH 7.27 prior to transfer. All labs improving, lactate near normalized on recheck here following fluid resuscitation Weaned from vasopressors, shock resolved OSH CThead no acute findings, nonspecific periventricular and deep white matter suspicious for small vessel disease, CTA chest with no acute PE, and CT abdomen/pelvis with no acute pathology. Multi-lobar CAP. CT-chest obtained due to worsening illness, worsening tachypnea and poor clinical appearance with uptrending leukocytosis. No evidence of PE. This does show developing multifocal pneumonia most pronounced in the left lung MRSA nare negative Sputum culture added Patient worsening on Zosyn. Reportedly initially improved after being treated with cefepime/Flagyl at OSH Transition to cefepime/Flagyl with azithromycin for atypical coverage Blood cultures remain pending, no growth to date 07/18 clinical improvements. Good energy. On 2 L of nasal cannula but work of breathing significantly improved. PT/OT ordered that he can tolerate this with improvement ? Diplopia Patient is with diagonal diplopia/vision change. Denies other neuro deficits. CThead with nonspecific periventricular/white matter changes suspected small vessel disease at OSH Per family at onset of unwellness patient did have 2x 30-second episodes of shaking with urinary incontinence much worse and more intense than his prior parkinsonian tremor. Suspected vasovagal event on attempting to move to the bathroom, unclear from history. on evaluation at OSH did have a markedly elevated lactate, confusion, and appeared severely ill. EEG is normal. No evidence of temporal abnormalities on MRI. No further s eizure workup at this time No evidence of CVA on MRI MRA without occlusion. Parkinson's w/ dementia/LBD; anxiety Continue carbidopa/levodopa at home dose Continue entacapone Continue Aricept 20 mg p.o. every morning and memantine 10 mg p.o. twice daily for dementia Continue BuSpar 5 mg p.o. daily Continue Cymbalta 30 mg p.o. every morning Continue Lyrica 75 mg p.o. twice daily Continue pramipexole DM2,? Euglycemic DKA/HHS Prior to transfer per facility per report had metabolic acidosis, hyperglycemia, elevated lactate SGLT2 has been held, metformin held. Continue basal bolus, glargine 30 units at bedtime and SSICF 40/CR 20. Suspect his illness was all due to sepsis likely due to pneumonia however higher risk of euglycemic DKA with SGLT2/GLP-1. Would hold SGLT2 and follow-up for alternatives on discharge LUDY, RESOLVED. Reportedly with LUDY at OSH Baseline creatinine less than 1. Creatinine 0.88 on 07/16. Trend daily DVT prophylaxis: Lovenox CODE STATUS: Full code Disposition: Downgrade to PCU Diet: Type II DM/heart healthy Anticipate D/C back to home or to SNF in the 07/20/2024 am. Admission and Anticipated Discharge Date Admission Date: July 15, 2024 Subjective "I am breathing really good today. I don't feel short of breath. Coughing a little, nothing comes up. I feel a lot better today. Maybe I can go home tomorrow?" Review of Systems Constitutional: Patient denies antecedent/coincident fevers, chills, diaphoresis, wheeze, sore throat, hemoptysis, chest pains, palpitations, pleurisy, nausea, vomiting, diarrhea, abdominal pain, pelvic pain, flank pain, back pain, shoulder pain, hematemesis, hematochezia, melena, hematuria, dysuria, frequency, urgency, headaches, dizziness, lightheadedness, visual changes, hearing changes, weakness, syncope, travel history, sick contacts, food/drug ingestions novel or new, anosmia, ageusia, hypogeusia, myalgias, arthralgias, rhinorrhea, or otorrhea. All other review of systems are reported as negative by the patient on 07/19/2024. Physical Exam Constitutional: General: Comfortable, coherent, cooperative. Wide awake and alert. Not confused, lethargic, or obtunded. Patient speaks in complete, fluent, and articulate sentences without pause, cough, or wheeze, with O2 sat 92% on 2 liters/minutes via nasal cannula (07/19/2024, 7:35pm). HEENT: Normocephalic, atraumatic. Extra-ocular muscles intact. Pupils equally round and reactive to light. No nystagmus, gaze paresis, anisocoria, miosis, mydriasis, hyphema, scleral injection, conjunctivitis, or pterygium. No otorrhea or rhinorrhea. No pharyngeal erythema, edema, or discharge. Neck: Supple, no stridor, bruit, goiter, or hepato-jugular reflux. Jugular venous pressure is estimated to be 3 cm above the sternal angle of Jermaine, which in turn, is 5 cm above the level of the right atrium; with jugular venous pressure estimated to be 8 cm, then, there is no jugular venous distention on 07/19/2024. Lymphatics: No cervical (anterior/posterior), supraclavicular, infraclavicular, axillary, epitrochlear, or inguinal adenopathy. Chest: Symmetric rise and fall with respirations. Non-tender to palpation. Lungs: Clear to auscultation and percussion. No audible expiratory wheeze, egophony, pectoriloquy, increase in tactile fremitus, or flatness/dullness to percussion at the bases. Heart: Regular rate and rhythm. S1 and S2 noted. No S3 or S4 summation gallop. No tripartite friction rub. Grade II/ early systolic murmur @ LLSB without radiation to the carotids, axilla, or back, and which rem ains invariant in regards to the respiratory cycle. Abdomen: Soft, non-tender, non-distended. No rebound, guarding, Lo's sign, or organomegaly. Bowel sounds auscultated in all 4 quadrants. Extremities: No clubbing, cyanosis, or edema. 2+ pedal pulses bilaterally. Skin: No decubitus ulcer or enanthem. Genito-urinary: No urethral discharge. No berger catheter. Neurology: Alert and oriented in regards to person, place, time, and situation. DTR+ and symmetric. 5/5 motor strength in all 4 extremities, both proximally and distally. No pronator drift. No facial droop. No dysarthria. Psychiatry: No homicidal ideation. No suicidal ideation. No flat affect; smiles appropriately Results & Data Results & Data Vital Signs (Past 12 Hours) Vital Signs Temp Pulse Pulse Resp BP Pulse Ox O2 Del Method 07/19/24 19:35 37.2 C 73 16 107/67 92 Nasal Cannula 07/19/24 14:54 71 07/19/24 14:47 36.9 C 74 17 120/65 94 Nasal Cannula 07/19/24 10:44 Nasal Cannula 07/19/24 10:35 36.9 C 80 22 106/68 93 Nasal Cannula O2 Flow Rate 07/19/24 19:35 2 07/19/24 14:54 07/19/24 14:47 2 07/19/24 10:44 2 07/19/24 10:35 2 Laboratory Results Abnormal lab results 07/19/24 07/19/24 07/19/24 Range/Units 06:30 07:21 11:04 WBC 12.92 H (4.8-10.8) K/ul RBC 4.06 L (4.70-6.10) M/uL Hgb 10.2 L (14.0-18.0) g/dl Hct 31.6 L (42.0-52.0) % MCV 77.8 L (80.0-100.0) fL RDW Std Deviation 50.2 H (36.4-46.3) fL RDW Coeff of La 17.7 H (11.5-14.5) % MPV 9.1 L (9.4-12.4) fL Neut # (Auto) 9.88 H (1.40-6.50) K/uL BUN/Creatinine Ratio 26.1 H (10-20) Glucose 111 H (70-99(Fasting)) mg/dl POC Glucose 138 H 229 H (70-99) mg/dl 07/19/24 07/19/24 Range/Units 15:58 20:15 WBC (4.8-10.8) K/ul RBC (4.70-6.10) M/uL Hgb (14.0-18.0) g/dl Hct (42.0-52.0) % MCV (80.0-100.0) fL RDW Std Deviation (36.4-46.3) fL RDW Coeff of La (11.5-14.5) % MPV (9.4-12.4) fL Neut # (Auto) (1.40-6.50) K/uL BUN/Creatinine Ratio (10-20) Glucose (70-99(Fasting)) mg/dl POC Glucose 160 H 178 H (70-99) mg/dl Lactic acid #1 3.2 mmol/L (07/15/2024, 9:43pm). Lactic acid #2 1.1 mmol/L (07/17/2024, 6:01am). Lactic acid #3 1.1 mmol/L (07/17/2024, 9:42am). Lactic acid #4 1.7 mmol/L (07/19/2024, 8:32am). Procalcitonin #1 0.05 ng/mL (07/15/2024, 9:53pm). Procalcitonin #2 0.30 ng/mL (07/17/2024, 6:01am). Procalcitonin #3 0.17 ng/mL (07/19/2024, 8:32am). Diagnostic Findings KUB X-Ray 07/15/24 21:20 Exam(s): XR KUB EXAM: XR Abdomen, 1 View CLINICAL HISTORY: Reason for exam: Feeding Tube placement. TECHNIQUE: Frontal supine views of the abdomen/pelvis. COMPARISON: No relevant prior studies available. FINDINGS: No feeding tube is noted. Gastrointestinal tract: There is a nonspecific bowel gas pattern.. Bones/joints: There are some degenerative changes in the spine. IMPRESSION: No feeding tube is noted. Electronically signed by: Darrian Tello MD 07/16/24 01:07 AM Brain MRI 07/16/24 14:43 MRI of the brain performed without IV contrast History: Parkinson's disease Comparison: None Technique: Sagittal T1-weighted and axial T2-weighted, T2/FLAIR and diffusion-weighted with ADC map images of the brain were obtained without IV contrast. Findings: No evidence for intracranial mass lesion, mass-effect, midline shift, or abnormal extra-axial fluid collection. There is marked generalized cerebral atrophy. Moderate, confluent high signal intensity abnormality throughout the white matter on T2/FLAIR, is most consistent with chronic small vessel ischemic disease. No abnormally reduced diffusion or evidence for acute infarct. Normal intravascular flow voids. Impression: Age-related changes without acute intracranial pathology Electronically signed by Kyler Thurston 07-16-2024 7:00 PM Head MRA 07/16/24 14:43 Head MRA without contrast History: Rule out CVA. Parkinson's disease. Comparison: None Technique: Using 3D [id number] image acquisition technique, MRA of the major arteries at the base of the brain was obtained without IV contrast. 3-dimensional reconstructions of the head MRA were created. Findings: There is no evidence for intracerebral vascular stenoses, occlusions, aneurysms, or vascular malformations. The surrounding brain parenchyma appears within normal limits. Calculation of carotid stenosis is based on comparison of residual lumen to measurements of distal internal carotid diameter as the denominator for stenosis measurement based on the [place] Symptomatic Carotid Endarterectomy Trial (NASCET) methodology. Impression: Normal brain MRA Electronically signed by Kyler Thurston 07-16-2024 6:52 PM Carotid Doppler Study 07/17/24 00:00 EXAM: US carotid doppler BI CLINICAL HISTORY: vertical diplopia, CVA evaluation. TECHNIQUE: Ultrasound examination of the carotid arteries was performed in real time and duplex. One or more of the following were performed: spectral analysis, resistive index, waveform analysis, and pulsed Doppler. COMPARISON: None. FINDINGS: High bifurcation of the right common carotid artery was observed. Technically Limited Evaluation due to the patient's reduced mobility and tachypnea. Doppler Profile: Vessel Right (PSV/EDV cm/sec) Left (PSV/EDV cm/sec) Common Carotid Artery (CCA) Prox CCA: 115.4 / 16.8 Dist CCA: 85.6 / 16.5 Prox CCA: 86.8 / 22.5 Dist CCA: 68.6 / 18.9 Bulb 94.1 / 18.9 62.9 / 16.8 Internal Carotid Artery (ICA) - Proximal Prox ICA: 85.0 / 17.6 Mid ICA: 76.5 / 8.9 Prox ICA: 238.8 / 58.4 Mid ICA: 176.9 / 53.6 Internal Carotid Artery (ICA) - Distal Not visualized. 203.8 / 49.7 External Carotid Artery (ECA) 100.9 / 10.2 109.3 / 20.0 Vertebral Artery (VA) Not visualized. 74.6 / 13.4 Right ICA/CCA Ratio 1 Left ICA/CCA Ratio 3.5 Velocities and spectral waveform: Elevated peak systolic and end-diastolic velocities are noted in the left internal carotid artery. Otherwise, within normal, peak systolic velocities are noted bilaterally. Spectral waveform is: Triphasic on the right, consistent with normal high-resistance flow. Biphasic on the left, which may suggest downstream resistance or early hemodynamic effect of stenosis. Plaque Characterization: Multifocal, sclerotic atherosclerotic plaques with calcification are noted, primarily involving the carotid bulbs and proximal left internal carotid artery. These plaques are causing: Approximately 50% stenosis at the carotid bulb bilaterally. 50?60% stenosis in the left proximal ICA. Stenosis Evaluation: Left ICA/CCA ratio of 3.5, PSV 230 cm/s, and EDV 40?100 cm/s support moderate (50?69%) stenosis. The right ICA/CCA ratio is 2.0, within normal limits. Vertebral Arteries: Normal flow noted in the left vertebral artery. The right vertebral artery was not visualized. IMPRESSION: 1. Moderate (50?60%) stenosis in the left proximal ICA based on elevated PSV/EDV and ICA/CCA ratio. 2. Mild to moderate (50%) bilateral carotid bulb stenosis with calcific plaque formation. 3. Recommend CTA carotid for better evaluation if clinically warranted. NASCET Criteria for carotid stenosis: Degree of Stenosis Measurement Criteria (Angiography) Peak Systolic Velocity (PSV) End Diastolic Velocity (EDV) PSV Ratio ICA/CCA Clinical Indications for Surgery Normal No narrowing 125 cm/s 40 cm/s 2.0 Not indicated for surgery Mild Stenosis 50% narrowing of the carotid artery 125 cm/s 40 cm/s 2.0 Generally, not indicated for surgery Moderate Stenosis 50% to 69% narrowing of the carotid artery 125 - 230 cm/s 40 - 100 cm/s 2.0 - 4.0 May be considered for surgery based on individual factors Severe Stenosis 70% to 99% narrowing of the carotid artery 230 cm/s 100 cm/s 4.0 Recommended for surgery in symptomatic patients Total Occlusion 100% blockage of the carotid artery No flow detected No flow detected Not applicable Surgery is not typically performed due to complete blockage Electronically signed by Eric Servin 07-17-2024 07:22 AM Chest X-Ray 07/17/24 04:06 EXAM: XR chest 1V portable CLINICAL HISTORY: Tachypnea/dyspnea, R/o pneumothorax. TECHNIQUE: X-ray images of the chest were obtained in AP projection. COMPARISON: No prior studies available for comparison. FINDINGS: Pulmonary Parenchyma: [id number].[id number].5.1.1 Multiple scattered patchy areas of airspace opacities involving the left middle /OBX.5.1.1OBX.5.1.2 lower lung zones./OBX.5.1.2/OBX.5.1 Prominent bilateral bronchovascular markings. No evidence of pleural effusion or pleural thickening. Heart and Mediastinum: Heart size and shape are normal. No mediastinal widening or masses. No hilar or mediastinal lymphadenopathy. Bony Thorax: Bony thorax appears intact without fractures or deformities. Soft Tissues: Soft tissues overlying the chest wall are unremarkable. IMPRESSION: 1. No radiographic evidence of pneumothorax. OBX.5.1OBX.5.1.12. Multiple scattered patchy areas of airspace opacities involving the left middle /OBX.5.1.1OBX.5.1.2 lower lung zones, Infection process is suggested./OBX.5.1.2/OBX.5.1 3. Prominent bilateral bronchovascular markings. Electronically signed by Eric Servin 07-17-2024 05:13 AM Abdomen/Pelvis CT 07/17/24 09:[address] WITH IV CONTRAST CT DOSE: 2014.77 mGy.cm HISTORY: abdominal pain, sepsis TECHNIQUE: Multiaxial CT images of the abdomen and pelvis were performed following the IV administration of 120 cc of Optiray, A dose lowering technique was utilized adhering to the principles of ALARA. COMPARISON STUDY: None FINDINGS: There is patchy consolidation at the left lower lung. ABDOMEN: There is mild nodular liver contour and mild liver hypodensity which could represent early cirrhosis or mild fatty liver. No ascites. Gallbladder, spleen, pancreas, and adrenal glands are unremarkable. There is no hydronephrosis bilaterally. No renal calculi. There is a 5 cm cyst upper left kidney. There are mild atherosclerotic calcifications. No abdominal aortic aneurysm. Pelvis: Berger catheter is present. Urinary bladder is nondistended. Prostate is mildly enlarged. There is moderate retained stool. There is mild colonic diverticulosis. No acute diverticulitis. No bowel inflammation or obstruction. No free fluid, free air, or abscess. No enlarged adenopathy. Osseous structures: There is mild degenerative change at the lumbar spine and hips. IMPRESSION: 1. Left-sided pneumonia. 2. No acute findings at the abdomen or pelvis. Otherwise as described. ACT 112: Negative or not required by law. The above report was generated using voice recognition software. It may contain grammatical, syntax or spelling errors. Electronically signed by: Moises Crowe M.D. 07/17/2024 11:02 AM Chest CTA 07/17/24 09:31 CT angio chest PE protocol HISTORY: 78 years-old Male with PE, tachypnea >30. Acute shortness of breath TECHNIQUE: Multiple CTA images of the chest were obtained after the intravenous administration of 119 ml Optiray. Coronal and sagittal MIPS were obtained from the axial data set and were submitted for review. All measurements were obtained according to NASCET criteria. A dose lowering technique was utilized adhering to the principles of ALARA. COMPARISON: CT abdomen and pelvis of same day FINDINGS: CTA: Heart is mildly enlarged. No pericardial effusion. Extensive coronary artery calcifications. No thoracic aortic aneurysm or dissection. No central pulmonary emboli identified. There is suboptimal evaluation of the segmental and subsegme ntal branches secondary to contrast bolus timing. CT CHEST: Unremarkable thyroid. Mild likely reactive left hilar lymphadenopathy. Small left pleural effusion. Mild dependent consolidation of the right lung, most pronounced in the right upper lobe and superior segment of the right lower lobe. Additional patchy multifocal ground glass and consolidative opacities are noted throughout the left upper and lower lobes. Respiratory motion artifact limits the study. The central airways are patent. Cirrhotic morphology of the liver. Exophytic hypodense lesion of the superior pole left kidney, likely a cyst. Unremarkable soft tissues. There is no acute fracture. IMPRESSION: 1. Multifocal pneumonia, most pronounced throughout the left lung. Follow-up chest CT after treatment course recommended in order to document complete resolution. 2. Limited exam secondary to respiratory motion. No central pulmonary emboli identified. 3. Mild left hilar lymphadenopathy, likely reactive. 4. Small left parapneumonic effusion. 5. Cirrhotic liver. ACT 112: Negative or not required by law. The above report was generated using voice recognition software. It may contain grammatical, syntax or spelling errors. Electronically signed by: Kumar Quiles M.D. 07/17/2024 11:04 AM PG Care Time/CCT Total # of Minutes Spent Total Time Spent with Patient: Total time spent is greater than 50% in coordination of care (as documented) at patient's floor/unit and/or counseling patient: Coding Level of Care Code 22812 SUB INP/OBS CARE 2/35MIN Diagnoses Abdominal pain R10.9 Fecal impaction K56.41 HTN (hypertension) I10 GERD (gastroesophageal reflux disease) K21.9 DMII (diabetes mellitus, type 2) E11.9 Parkinsons disease G20.A1 LUDY (acute kidney injury) N17.9
[2024-07-20 08:53] LABS: BUN Creatinine Ratio 29.9 (10-20); Calcium 9.4 mg/dl (8.6-10.3); Creatinine Clr Calc Pharmacy 84.6 ml/min; Phosphorus 3.2 mg/dl (2.5-4.9); Potassium 3.5 mmol/L (3.5-5.1)
[2024-07-20 09:40] LABS: Basophils # (auto) 0.03 K/uL (0.00-0.20); Basophils % (auto) 0.4 %; Eosinophils # (auto) 0.19 K/uL (0.00-0.50); Eosinophils % (auto) 2.3 %; Hemoglobin 11.1 g/dl (14.0-18.0); Immature Granulocytes # (auto) 0.08 K/uL (0.01-0.20); Lymphocytes # (auto) 1.42 K/uL (1.20-3.40); Lymphocytes % (auto) 17.5 %; Mean Corpuscular Hemoglobin 25.1 pg (25.0-34.0); Mean Corpuscular Hgb Conc 31.7 g/dL (32.0-36.0); Mean Corpuscular Volume 79.2 fL (80.0-100.0); Mean Platelet Volume 9.5 fL (9.4-12.4); Monocytes # (auto) 0.57 K/uL (0.11-0.59); Neutrophils # (auto) 5.84 K/uL (1.40-6.50); Neutrophils % (auto) 71.8 %; Platelet Count 361 K/uL (130-400); RDW Coefficient of Variation 17.9 % (11.5-14.5); RDW Standard Deviation 51.8 fL (36.4-46.3); Red Blood Count 4.42 M/uL (4.70-6.10); White Blood Count 8.13 K/ul (4.8-10.8)
--- NOTE | 2024-07-20 14:02 | Discharge Summary ---
Discharge Summary Date of Service July 20, 2024 Principal Dx & Hospital Course #1 = Principal Diagnosis (1) Abdominal pain: (2) Fecal impaction: (3) HTN (hypertension): (4) GERD (gastroesophageal reflux disease): (5) DMII (diabetes mellitus, type 2): (6) Parkinsons disease: (7) LUDY (acute kidney injury): Plan 78 years old male with PMH of FULL CODE @ home, Parkinson's disease with dementia, anxiety disorder, major depression, restless leg syndrome, and non-insulin dependent DM2, who presented to [facility] ER on 07/15/2024 from an outside hospital, with complaints of abdominal pain, nausea, vomiting, fecal impaction and ongoing hypotension. Patient was subsequently admitted to the inpatient hospitalist service @ [facility] on 07/15/2024 with the following diagnosis: 1. Severe sepsis / septic shock due to multi-lobar CAP. The following medical issues were addressed while the patient remained in [facility] from 07/15/2024 through 07/20/2024: 1. Severe sepsis / septic shock due to multi-lobar CAP, RESOLVED. Patient received 3 L of crystalloid with persistent low blood pressures/shock, followed by norepinephrine infusion, which was subsequently weaned off. Patient received zosyn 4.5g IV x 5 doses (07/15/2024 - 07/17/2024); azithromycin 500mg PO daily x 1 dose (07/17/2024); azithromycin 250mg PO daily x 2 doses (07/18/2024, 07/19/2024); flagyl 500mg IV q8 x7 doses (07/17/2024 - 07/19/2024), flagyl 500mg PO q8 x 3 doses (07/19/2024 - 07/20/2024), and cefe pime 2g IV q8 x 9 doses (07/17/2024 - 07/20/2024). Patient was discharged back to his home on 07/20/2024, where he will continue with flagyl 500mg PO q8 x 11 doses (07/20/2024 - 07/23/2024) and cefdinir 300mg PO bid x 8 doses (07/20/2024 - 07/23/2024) to complete a total of 10 days of IV and oral antibiotics to treat his multi-lobar CAP. To this end, patient's [id number] ([address] [place] [address]) received on 07/20/2024, prior to hospital discharge, two electronic prescriptions for: a. flagyl 500mg PO q8, #11 tablets, no refills. b. cefdinir 300mg PO bid, #8 capsules, no refills. Other secondary medical conditions include: Diplopia Patient presented with diagonal diplopia on admission date 07/15/2024, and which RESOLVED prior to disharge date 07/20/2024. Denies other neuro deficits. CThead with nonspecific periventricular/white matter changes suspected small vessel disease at OSH Per family at onset of unwellness patient did have 2x 30-second episodes of shaking with urinary incontinence much worse and more intense than his prior parkinsonian tremor. Suspected vasovagal event on attempting to move to the bathroom, unclear from history. on evaluation at OSH did have a markedly elevated lactate, confusion, and appeared severely ill. EEG is normal. No evidence of temporal abnormalities on MRI. No further seizure workup at this time No evidence of CVA on MRI MRA without occlusion. Parkinson's w/ dementia/LBD; anxiety Continue carbidopa/levodopa at home dose Continue entacapone Continue Aricept 20 mg p.o. every morning and memantine 10 mg p.o. twice daily for dementia Continue BuSpar 5 mg p.o. daily Continue Cymbalta 30 mg p.o. every morning Continue Lyrica 75 mg p.o. twice daily Continue pramipexole DM2 / [facility]HS Prior to transfer per facility per report had metabolic acidosis, hyperglycemia, elevated lactate SGLT2 has been held, metformin held. Continue basal bolus, glargine 30 units at bedtime and SSICF 40/CR 20. Suspect his illness was all due to sepsis likely due to pneumonia however higher risk of euglycemic DKA with SGLT2/GLP-1. Would hold SGLT2 and follow-up for alternatives on discharge LUDY, RESOLVED at outside hospital. Reportedly with LUDY at outside hospital. Baseline creatinine less than 1. cf., admission creatinine 0.92 mg/dL (07/15/2024, 9:43pm). cf., discharge creatinine 0.67 mg/dL (07/20/2024, 6:47am). DVT prophylaxis: Lovenox CODE STATUS: Full code Disposition: Downgrade to PCU Diet: Type II DM/heart healthy Anticipate D/C back to home or to SNF in the 07/20/2024 am. Admission HPI Per Admitting Provider Karsten Pereira is a 78-year-old male with history of diabetes, Parkinson's disease presenting from [facility] after presenting with an episode of unresponsiveness. Patient was at home when he got up to try to have a bowel movement and became unresponsive. He became diaphoretic and hypotensive. EMS was called. Upon arrival to the emergency room patient noted to be pale and vomiting. Blood pressure in the 80s. Patient was administered 2 L of normal saline with no improvement in blood pressure therefore Levophed drip was initiated. He was transferred to [facility] ICU for continued workup and management. Patient reportedly vomited x 2, non-bloody. No diarrhea. He has been constipated for "a while", uncertain when his last BM was. Patient recently started on sitagliptin Patient evaluated at bedside. He is reporting abdominal pain. No additional complaints at this time. Specifically denies chest pain, SOB. Workup at outside hospital: Lactate = 6.3 --> 4.5 Creatinine = 1.6 (baseline = 0.9) Bicarbonate = 15 Anion gap = 19 Glucose = 290 Sodium = 129 VBG with pH = 7.27, normal CO2 Patient had a UA that was negative for infection CT of abdomen and pelvis with contrast with fecal impaction but no other acute findings, probable cirrhosis CT PE study negative for acute findings CT of the head with no acute bleed Treatment at outside hospital: Zofran 2 L normal saline 1 L LR Levophed drip initiated Neomycin Cefepime Flagyl Discharge Exam Constitutional General: Comfortable, coherent, cooperative. Wide awake and alert. Not confused, lethargic, or obtunded. Patient speaks in complete, fluent, and articulate sentences without pause, cough, or wheeze, with O2 sat 94% on room air (07/20/2024, 12:49pm). HEENT: Normocephalic, atraumatic. Extra-ocular muscles intact. Pupils equally round and reactive to light. No nystagmus, gaze paresis, anisocoria, miosis, mydriasis, hyphema, scleral injection, conjunctivitis, or pterygium. No otorrhea or rhinorrhea. No pharyngeal erythema, edema, or discharge. Neck: Supple, no stridor, bruit, goiter, or hepato-jugular reflux. Jugular venous pressure is estimated to be 3 cm above the sternal angle of Jermaine, which in turn, is 5 cm above the level of the right atrium; with jugular venous pressure estimated to be 8 cm, then, there is no jugular venous distention on 07/20/2024. Lymphatics: No cervical (anterior/posterior), supraclavicular, infraclavicular, axillary, epitrochlear, or inguinal adenopathy. Chest: Symmetric rise and fall with respirations. Non-tender to palpation. Lungs: Clear to auscultation and percussion. No audible expiratory wheeze, egophony, pectoriloquy, increase in tactile fremitus, or flatness/dullness to percussion at the bases. Heart: Regular rate and rhythm. S1 and S2 noted. No S3 or S4 summation gallop. No tripartite friction rub. Grade II/ early systolic murmur @ LLSB without radiation to the carotids, axilla, or back, and which remains invariant in regards to the respiratory cycle. Abdomen: Soft, non-tender, non-distended. No rebound, guarding, Lo's sign, or organomegaly. Bowel sounds auscultated in all 4 quadrants. Extremities: No clubbing, cyanosis, or edema. 2+ pedal pulses bilaterally. Skin: No decubitus ulcer or enanthem or exanthem. Genito-urinary: No urethral discharge. No berger catheter. Neurology: Alert and oriented in regards to person, place, time, and situation. DTR+ and symmetric. 5/5 motor strength in all 4 extremities, both proximally and distally. No pronator drift. No facial droop. No dysarthria. Psychiatry: No homicidal ideation. No suicidal ideation. No flat affect; smiles appropriately Discharge Plan Discharge Items Patient Disposition: Home - Self-Care Reason For Visit: SHOCK Discharge Diagnosis: Severe sepsis / septic shock due to multi-lobar CAP Condition on Discharge: Fair Activity: Resume your previous activity Lifting: Gradually increase as tolerated Bathing: No limitations Sexual Activity: When tolerated Exercise/Sports: Gradually increase as tolerated Weightbearing: Full weightbearing Non-emergency contact: Primary Care Provider Call non-emergency contact if: you have any medication questions Follow-up/Referrals: PCP,NO [Primary Care Provider] - Diet: Heart Healthy Addtl Attending Provider Instructions: See your PCP within 5 days of hospital discharge. Pending Studies at Discharge: No Stand-Alone Forms: [facility], [facility] C[facility] Medications and DC Order Prescriptions: New buspirone 5 mg Tablet 5 mg PO DAILY Qty: 30 0RF metformin 500 mg Tablet 1,000 mg PO BID Qty: 60 0RF donepezil 10 mg Tablet 20 mg PO QAM Qty: 30 0RF metronidazole 500 mg Tablet 500 mg PO Q8 Qty: 11 0RF entacapone 200 mg Tablet 200 mg PO QID Qty: 120 0RF pramipexole 0.25 mg Tablet 0.125 mg PO BID Qty: 60 0RF carbidopa-levodopa [Sinemet] 25-100 mg Tablet 1 tab PO QID Qty: 120 0RF memantine 10 mg Tablet 10 mg PO BID Qty: 60 0RF duloxetine 30 mg Capsule,Delayed Release(Dr/Ec) 30 mg PO QAM Qty: 30 0RF Januvia 100 mg Tablet 100 mg PO DAILY Qty: 30 0RF cefdinir 300 mg capsule 300 mg PO BID 10 Days Qty: 8 0RF Discharge Orders: Discharge Order (Routine); Ordered 07/20/24 Ordered By: Lester Chiang/Other Patient Handouts: Nutrition for Wound Healing, Managing Type 2 Diabetes Admission Data Admit Date/Time: 07/15/24 20:47 Attending Provider: Lester Steinberg Admit Provider: Dayday Valentin Primary Care Provider: PCP,NO Other Providers: Orlando Juarez; Price Oliva; [facility],Hospital Hospital Stay Data Consultations 07/15/24 21:20 Consult Senior Operator Routine 07/17/24 09:00 Consult Neurology Routine Diagnostic Imagining Performed 07/16/24 14:43 MR angio head wo con Routine MRI Brain [MR brain wo con] Routine 07/17/24 US carotid doppler BI Routine 07/17/24 09:31 CT Abd and Pelvis [CT abd pelvis IV con only] Urgent CT angio chest PE protocol Stat Pending Results Patient Have Any Pending Studies at Discharge: No Discharge Instructions Given to Patient (Per Discharging Provider) See your PCP within 5 days of hospital discharge. Total Time Total Time Spent Total Time Spent (In Minutes): 35 minutes. Of this time period, 19 minutes were spent in coordinating patient's discharge. Coding Level of Care Code 87222 INP/OBS DISCH >30 MIN Diagnoses Abdominal pain R10.9 Fecal impaction K56.41 HTN (hypertension) I10 GERD (gastroesophageal reflux disease) K21.9 DMII (diabetes mellitus, type 2) E11.9 Parkinsons disease G20.A1 LUDY (acute kidney injury) N17.9
[2024-07-20] MEDS: ONDANSETRON INJ 2 MG/ML 2 ML VIAL IV STA (15:08)
[2024-07-20 15:17] VITALS: RESP 18; TEMP 97.9; O2SAT 96
[2024-07-20 16:46] VITALS: BP 104/65; PULSE 90
== END 2024-07-20 18:24 | disposition home or self-care (01) | DRG 871 ==
LOC: SUATTDRO 20:47 → 1E 20:47 → 2S 07-16 14:24